=== PATIENT | male | born 1980 | race Caucasian/White ===

== ENCOUNTER 2019-10-20 11:55 | Emergency (ER) | payer SELFPAY ==
[~2019-10-20] VITALS: Ht 175.2 cm; Wt 83.5 kg
[2019-10-20 12:05] VITALS: BP 123/80
[2019-10-20] MEDS ORDERED: DICL75TA2 PO (12:14)
--- NOTE | 2019-10-20 12:14 | ED General ---
General Stated Complaint: CP Source of Information: Patient, Old Records, RN Notes Reviewed Exam Limitations: No Limitations History of Present Illness Date Seen by Provider: October 20, 2019 Time Seen by Provider: 11:59 Initial Comments This patient is a 39-year-old male that presents to the emergency department with soreness and pain to the right upper chest. Patient states he works at a local [employer] has been doing a lot of heavy lifting for the past couple weeks and smoke of sore. Patient states it hurts to move mostly on the right side and pushed her against resistance or pull. Denies any cardiac history. Timing/Duration: 4-6 Hours Severity: Mild Associated Systoms: Denies Symptoms; No Chest Pain, No Cough, No Diaphoresis, No Fever/Chills, No Headaches, No Loss of Appetite, No Malaise, No Nausea/Vomiting, No Rash, No Seizure, No Shortness of Air, No Syncope, No Weakness, No Other Allergies and Home Medications Patient Home Medication List Home Medication List Reviewed: Yes Review of Systems Review of Systems Constitutional: No no symptoms reported; see HPI; No chills, No diaphoresis, No dizziness, No fever, No malaise, No weakness, No weight gain, No weight loss, No other EENTM: No see HPI, No no symptoms reported, No ear discharge, No hearing loss, No ear pain, No blurred vision, No double vision, No eye pain, No tearing, No vision loss, No dental problems, No hoarseness, No mouth pain, No mouth swelling, No epistaxis, No nose congestion, No nose pain, No throat pain, No throat swelling, No other Respiratory: No no symptoms reported, No see HPI, No cough, No dyspnea on exertion, No hemoptysis, No orthopnea, No phlegm, No short of breath, No stridor, No wheezing, No other Cardiovascular: No no symptoms reported; see HPI, chest pain; No edema, No Hx of Intervention, No palpitations, No syncope, No vascular heart diseas, No other Gastrointestinal: No RUQ, No LUQ, No RLQ, No LLQ, No no symptoms reported, No see HPI, No abdominal pain, No constipation, No diarrhea, No dysphagia, No hematemesis, No heartburn, No jaundice, No loss of appetite, No melena, No nausea, No vomiting, No other Genitourinary: No no symptoms reported; see HPI; No decreased output, No discharge, No dysuria, No frequency, No hematuria, No hesitancy, No incontinence, No nocturia, No pain, No other Musculoskeletal: No no symptoms reported, No see HPI, No back pain, No gout, No joint pain, No joint swelling, No muscle pain, No muscle stiffness, No muscle cramps, No muscle twitching, No muscle weakness, No neck pain, No other Skin: No no symptoms reported, No see HPI, No change in color, No change in hair/nails, No dryness, No hx of skin cancer, No lesions, No lumps, No pruritus, No rash, No other Past Amkxsxm-Wsyjjj-Uvenzl Hx Patient Social History Recent Foreign Travel: No Contact w/Someone Who Travel: No Physical Exam Vital Signs Capillary Refill : Height, Weight, BMI Height: '" Weight: lbs. oz. kg; BMI Method: General Appearance: No Apparent Distress, WD/WN HEENT: PERRL/EOMI, TMs Normal, Normal ENT Inspection, Pharynx Normal Neck: Full Range of Motion, Normal Inspection, Non Tender, Supple, Carotid Bruit Respiratory: Chest Non Tender, Lungs Clear, Normal Breath Sounds, No Accessory Muscle Use, No Respiratory Distress Cardiovascular: Regular Rate, Rhythm, No Edema, No Gallop, No JVD, No Murmur, Normal Peripheral Pulses, Other (chest is tender on palpation repeat reproduces the pain with movement of the right upper extremity. Pushing or pulling causes increased discomfort. Appears to be all muscular skeletal pain. Mild in nature) Back: Normal Inspection, No CVA Tenderness, No Vertebral Tenderness Skin: Normal Color, Warm/Dry Progress/Results/Core Measures Suspected Sepsis SIRS Temperature: Pulse: Respiratory Rate: Blood Pressure / Mean: Results/Orders Vital Signs/I&O Capillary Refill : Progress Note : Time: 12:11 Progress Note Encourage diclofenac as needed for pain. Alternate heat and ice and rest. Avoid aggravating movements and avoid lifting greater than 10 pounds for the next couple days. Departure Impression Primary Impression: Musculoskeletal pain Disposition: HOME, SELF-CARE Condition: Stable Departure-Patient Inst. Decision time for Depature: 12:12 Referrals: NO,LOCAL PHYSICIAN (PCP) Primary Care Physician SELF,MARANDA CROW Patient Instructions: Muscle Strain (DC) Add. Discharge Instructions: Encourage diclofenac as needed for pain. Alternate heat and ice and rest. Avoid aggravating movements and avoid lifting greater than 10 pounds for the next couple days. Scripts Diclofenac Sodium (Diclofenac Sodium) 75 Mg Tablet. 75 MG PO BID for 10 Days, #20 TAB 0 Refills Prov: HUMAIRA PITTS MD 10/20/19 HUMAIRA PITTS MD October 20, 2019 12:14
--- OUTSIDE RECORDS SUMMARY | 2019-10-20 13:54 | XMS REPORT | Continuity of Care Document ---
Author Organization Unknown Address Unknown Phone Unavailable Allergies There is no data. Medications There is no data. Problems There is no data. Procedures There is no data. Results There is no data. Encounters ACCT No. Visit Date/Time Discharge Status Pt. Type Provider Facility Loc./Unit Complaint [id number] 10/03/2019 16:00:00 10/03/2019 23:59: 59 CLS Outpatient ANJU DAMON LAC [facility] IN [facility]
== END 2019-10-20 12:22 | disposition home or self-care (01) ==
LOC: ER FS 12:00
DX: R07.89 Other chest pain (principal)
CPT/HCPCS: 99283

== ENCOUNTER 2019-11-09 07:04 | Emergency (ER) | payer SELFPAY ==
[~2019-11-09] VITALS: Ht 175.3 cm; Wt 85.7 kg
[~2019-11-09 07:04] MED LIST: DICL75TA2 PO
--- OUTSIDE RECORDS SUMMARY | 2019-11-09 07:09 | XMS REPORT | Continuity of Care Document ---
Author Organization Unknown Address Unknown Phone Unavailable Allergies Active Description Code Type Severity Reaction Onset Reported/Identified Relationship to Patient Clinical Status Yes acetamenophen acetamenophen Unknown N/A 10/20/2019 Yes Penicillins [id number] Drug Aller gy Unknown N/A 10/20/2019 Yes shellfish derived [id number] Drug Allergy Unknown N/A 10/20/2019 Medications There is no data. Problems Date Dx Coded Attending Type Code Diagnosis Diagnosed By 10/21/2019 HUMAIRA PITTS MD Ot R07.89 OTHER CHEST PAIN 10/21/2019 HUMAIRA PITTS MD Ot R07.9 CHEST PAIN, UNSPECIFIED 10/21/2019 HUMAIRA PITTS MD Ot R07.89 OTHER CHEST PAIN 10/21/2019 HUMAIRA PITTS MD Ot R07.9 CHEST PAIN, UNSPECIFIED Procedures There is no data. Results There is no data. Encounters ACCT No. Visit Date/Time Discharge Status Pt. Type Provider Facility Loc./Unit Complaint [id number] 10/03/2019 16:00:00 10/03/2019 23:59: 59 CLS Outpatient ANJU DAMON LAC [facility] IN [facility] [id number] 10/20/2019 12:00:00 020 12:22:00 DIS Outpatient HUMAIRA PITTS MD [facility] ER FS CP
[2019-11-09] MEDS ORDERED: NS IV 1000 ML 1,000 ML IV SCH (07:30)
--- NOTE | 2019-11-09 07:37 | ED General ---
General Stated Complaint: SOB; DIZZINESS; LIGHTHEADED Source of Information: Patient Exam Limitations: No Limitations History of Present Illness Date Seen by Provider: November 09, 2019 Time Seen by Provider: 07:15 Initial Comments The patient is a pleasant 39-year-old male who presents for evaluation of shortness of breath and lightheadedness which happened at work today. 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 He says that he felt like he might pass out. He was seen here about 2 and half weeks ago for chest discomfort but states that he is not having any chest di scomfort right now. He states that he has a history of asthma and rarely uses an inhaler. While he was at work he used someone else's inhaler and states that this helped his shortness of breath significantly. He used to take medication for seizures but has not had to do so in some time. He denies any other medical problems. He states that his father had a CABG but is unsure at what age. He does feel that his symptoms today were caused by an exacerbation of his asthma. He is alert and oriented 4, calm, and appears to be in no distress. He denies cough, fevers or chills, sick contacts, sore throat, headache, neck pain or stiffness, nausea or vomiting, diaphoresis, palpitations or syncope. Timing/Duration: 1 Hour Severity: Moderate Modifying Factors: improves with Medication (albuterol inhaler helped), improves with Rest (helped) Associated Systoms: Shortness of Air Allergies and Home Medications Allergies Coded Allergies: Penicillins (Unverified Adverse Reaction, Unknown, 10/20/19) shellfish derived (Unverified Adverse Reaction, Unknown, 10/20/19) Uncoded Allergies: acetamenophen (Adverse Reaction, Unknown, 10/20/19) Home Medications Diclofenac Sodium 75 Mg Tablet.dr 75 MG PO BID Prescribed by: HUMAIRA PITTS on 10/20/19 1214 Patient Home Medication List Home Medication List Reviewed: Yes Review of Systems Review of Systems Constitutional: other (lightheaded) EENTM: no symptoms reported Respiratory: short of breath Cardiovascular: no symptoms reported Gastrointestinal: no symptoms reported Genitourinary: no symptoms reported Musculoskeletal: no symptoms reported Skin: no symptoms reported Psychiatric/Neurological: No Symptoms Reported Hematologic/Lymphatic: No Symptoms Reported Immunological/Allergic: no symptoms reported All Other Systems Reviewed Negative Unless Noted: Yes Past Ngkhhly-Xzunbf-Vpgjrw Hx Past Med/Social Hx: Reviewed Nursing Past Med/Soc Hx Patient Social History Type Used: Smokeless Tobacco Recent Foreign Travel: No Contact w/Someone Who Travel: No Recent Hopitalizations: No Seasonal Allergies Seasonal Allergies: No Past Medical History Surgeries: Yes Appendectomy Respiratory: No Cardiac: No Neurological: Yes (Epilepsy, cleared 2 yrs ago. Took self off meds) Seizure Disorder Genitourinary: No Gastrointestinal: No Musculoskeletal: No Endocrine: No HEENT: No Cancer: No Psychosocial: No Integumentary: No Blood Disorders: No Physical Exam Vital Signs Vital Signs - First Documented 11/09/19 07:14 Temp 36.3 Pulse 69 Resp 18 B/P (MAP) 129/84 (99) Pulse Ox 96 O2 Delivery Room Air Capillary Refill : Height, Weight, BMI Height: '" Weight: lbs. oz. kg; 27.00 BMI Method: General Appearance: No Apparent Distress, WD/WN Eyes: Bilateral Eye Normal Inspection, Bilateral Eye PERRL, Bilateral Eye EOMI HEENT: PERRL/EOMI, Normal ENT Inspection, Pharynx Normal Neck: Full Range of Motion, Normal Inspection, Supple Respiratory: Lungs Clear, Normal Breath Sounds, No Accessory Muscle Use, No Respiratory Distress Cardiovascular: Regular Rate, Rhythm, No Edema, No JVD, No Murmur, Normal Peripheral Pulses Gastrointestinal: Normal Bowel Sounds, No Pulsatile Mass, Non Tender, Soft Extremity: Normal Capillary Refill, Normal Inspection, Normal Range of Motion Neurologic/Psychiatric: Alert, Oriented x3, No Motor/Sensory Deficits, Normal Mood/Affect Skin: Normal Color, Warm/Dry Progress/Results/Core Measures Suspected Sepsis SIRS Temperature: Pulse: Respiratory Rate: Laboratory Tests 11/09/19 07:35: White Blood Count 6.8 Blood Pressure / Mean: Laboratory Tests 11/09/19 07:35: Creatinine 0.70, Platelet Count 259, Total Bilirubin 0.4 Results/Orders Lab Results Laboratory Tests Test 11/09/19 07:35 Range/Units White Blood Count 6.8 4.3-11.0 10^3/uL Red Blood Count 5.20 4.35-5.85 10^6/uL Hemoglobin 15.3 13.3-17.7 G/DL Hematocrit 44 40-54 % Mean Corpuscular Volume 85 80-99 FL Mean Corpuscular Hemoglobin 29 25-34 PG Mean Corpuscular Hemoglobin Concent 35 32-36 G/DL Red Cell Distribution Width 13.1 10.0-14.5 % Platelet Count 259 130-400 10^3/uL Mean Platelet Volume 9.0 7.4-10.4 FL Neutrophils (%) (Auto) 53 42-75 % Lymphocytes (%) (Auto) 31 12-44 % Monocytes (%) (Auto) 10 0-12 % Eosinophils (%) (Auto) 5 0-10 % Basophils (%) (Auto) 1 0-10 % Neutrophils # (Auto) 3.6 1.8-7.8 X 10^3 Lymphocytes # (Auto) 2.1 1.0-4.0 X 10^3 Monocytes # (Auto) 0.7 0.0-1.0 X 10^3 Eosinophils # (Auto) 0.4 H 0.0-0.3 10^3/uL Basophils # (Auto) 0.1 0.0-0.1 10^3/uL D-Dimer 0.30 0.00-0.49 UG/ML Sodium Level 140 135-145 MMOL/L Potassium Level 4.2 3.6-5.0 MMOL/L Chloride Level 103 98-107 MMOL/L Carbon Dioxide Level 26 21-32 MMOL/L Anion Gap 11 5-14 MMOL/L Blood Urea Nitrogen 20 H 7-18 MG/DL Creatinine 0.70 0.60-1.30 MG/DL Estimat Glomerular Filtration Rate > 60 BUN/Creatinine Ratio 29 Glucose Level 110 H 70-105 MG/DL Calcium Level 8.9 8.5-10.1 MG/DL Corrected Calcium 8.7 8.5-10.1 MG/DL Total Bilirubin 0.4 0.1-1.0 MG/DL Aspartate Amino Transf (AST/SGOT) 22 5-34 U/L Alanine Aminotransferase (ALT/SGPT) 43 0-55 U/L Alkaline Phosphatase 98 40-136 U/L Troponin I < 0.30 <0.30 NG/ML Pro-B-Type Natriuretic Peptide 12.4 <75.0 PG/ML Total Protein 6.7 6.4-8.2 GM/DL Albumin 4.2 3.2-4.5 GM/DL My Orders Orders - EVITA,AALIYAH B DO Cbc With Automated Diff (11/09/19 07:28) Comprehensive Metabolic Panel (11/09/19 07:28) Troponin I Fs (11/09/19 07:28) Probnp Fs (11/09/19 07:28) Fibrin Degradation Products (11/09/19 07:28) Ns Iv 1000 Ml (Sodium Chloride 0.9%) (11/09/19 07:30) Derrick Barge Operator (11/09/19 07:28) Ekg Tracing (11/09/19 07:28) Continuous Ekg Monitoring (11/09/19 07:28) Chest 1 View Ap/Pa Only (11/09/19 07:49) Vital Signs/I&O 11/09/19 07:14 Temp 36.3 Pulse 69 Resp 18 B/P (MAP) 129/84 (99) Pulse Ox 96 O2 Delivery Room Air Capillary Refill : Progress Note : Progress Note @0843 - patient updated on lab and imaging results which are acutely unremarkable. He states it is feeling better and is asking to go home. Workup fails to reveal any emergent pathology. The patient will go home with a prescription for albuterol inhaler which he has run out of. Advised the patient to follow up with his PCP in the next 2-3 days and to return to the emergency Department immediately for new or worsening symptoms. The patient expresses verbal understanding and agreement with the plan and is stable for discharge. ECG Comment @0720 - normal sinus rhythm, rate of 64, normal axis, no acute ischemic findings noted, no STEMI, reviewed and interpreted by myself Departure Impression Primary Impression: Light-headed feeling Additional Impression: Asthma exacerbation Disposition: 01 HOME, SELF-CARE Condition: Stable Departure-Patient Inst. Decision time for Depature: 08:45 Referrals: NO,LOCAL PHYSICIAN (PCP) Primary Care Physician [facility] Patient Instructions: Asthma, Adult (DC), Dizziness, Nonvertigo, (DC) Add. Discharge Instructions: Take the prescribed medicine as directed. Return to the emergency Department immediately for new or worsening symptoms. Follow-up with your doctor in the next 1-2 days. Scripts Albuterol Sulfate (VENTOLIN HFA) 1 Puff Puff 2 PUFF INH Q4H PRN for WHEEZING, #1 PUFF 1 PUFF = 90 MCG Prov: AALIYAH JAMA DO 11/09/19 AALIYAH JAMA DO November 09, 2019 07:37
[2019-11-09 07:45] LABS: HEMATOCRIT 44 % (40-54); HEMOGLOBIN 15.3 G/DL (13.3-17.7); MEAN CORPUSCULAR HEMOGLOBIN 29 PG (25-34); WHITE BLOOD COUNT 6.8 10^3/uL (4.3-11.0)
[2019-11-09 07:46] LABS: BASOPHILS % (AUTO) 1 % (0-10); EOSINOPHILS % (AUTO) 5 % (0-10); MEAN CORPUSCULAR HGB CONC 35 G/DL (32-36); MEAN CORPUSCULAR VOLUME 85 FL (80-99); MONOCYTES % (AUTO) 10 % (0-12); NEUTROPHILS % (AUTO) 53 % (42-75); PLATELET COUNT 259 10^3/uL (130-400); RED CELL DISTRIBUTION WIDTH 13.1 % (10.0-14.5)
[2019-11-09 07:47] LABS: BASOPHILS # (AUTO) 0.1 10^3/uL (0.0-0.1); EOSINOPHILS # (AUTO) 0.4 10^3/uL (0.0-0.3); LYMPHOCYTES # (AUTO) 2.1 X 10^3 (1.0-4.0); LYMPHOCYTES % (AUTO) 31 % (12-44); MONOCYTES # (AUTO) 0.7 X 10^3 (0.0-1.0); NEUTROPHILS # (AUTO) 3.6 X 10^3 (1.8-7.8)
--- NOTE | 2019-11-09 08:07 | Diagnostic Imaging Report ---
INDICATION: Lightheaded, short of breath, chest pain COMPARISON: None available. TECHNIQUE: Single frontal radiograph of the chest dated 11/09/2019. FINDINGS: The cardiac silhouette is within normal limits in size. No significant pulmonary vascular congestion. The lungs are clear. No pleural effusion. No pneumothorax. No acute osseous abnormality. IMPRESSION: No acute cardiopulmonary abnormality. Dictated by: Dictated on workstation # [id number]
[2019-11-09 08:17] LABS: ALANINE AMINOTRANSFERASE 43 U/L (0-55); ALKALINE PHOSPHATASE 98 U/L (40-136); BILIRUBIN,TOTAL 0.4 MG/DL (0.1-1.0); BUN/CREATININE RATIO 29; CALCIUM 8.9 MG/DL (8.5-10.1); CARBON DIOXIDE 26 MMOL/L (21-32); CHLORIDE 103 MMOL/L (98-107); GFR ESTIMATED > 60; GLUCOSE 110 MG/DL (70-105); POTASSIUM 4.2 MMOL/L (3.6-5.0); SODIUM 140 MMOL/L (135-145)
[2019-11-09 08:18] LABS: ALBUMIN 4.2 GM/DL (3.2-4.5); TOTAL PROTEIN 6.7 GM/DL (6.4-8.2)
[2019-11-09] MEDS ORDERED: RT-ALBUINH INH (08:48)
[2019-11-09 09:05] VITALS: BP 113/77
== END 2019-11-09 09:05 | disposition home or self-care (01) ==
LOC: EDUNIT# 07:04 → ER FS 07:05
DX: J45.901 Unspecified asthma with (acute) exacerbation (principal); R42 Dizziness and giddiness; Z88.0 Allergy status to penicillin; Z88.6 Allergy status to analgesic agent
CPT/HCPCS: 36415; 71045; 80053; 83880; 84484; 85025; 85379; 93005; 96360

== ENCOUNTER 2020-05-06 19:23 | Emergency (ER) | payer MEDICAID, OTHER ==
[~2020-05-06 19:23] MED LIST changes: +RT-ALBUINH INH
--- NOTE | 2020-05-06 19:36 | ED Upper Extremity ---
General Stated Complaint: FALL/INJURED RT SHOULDER Source: patient Exam Limitations: no limitations History of Present Illness Date Seen by Provider: May 06, 2020 Time Seen by Provider: 19:25 Initial Comments The patient is a pleasant 40-year-old male who states that he slipped and fell injuring his right shoulder. He is holding the shoulder close to his body and states that it hurts too much to move it away from his body. He denies any previous serious injury to the shoulder. He says that he hit his head slightly but is not having any head or neck pain. He does not take any blood thinners. He denies any weakness or numbness, shortness of breath, back pain, abdominal pain, chest wall pain, or any other complaints. He is alert and oriented 4, calm, and appears to be in no distress. Onset: just prior to arrival Pain/Injury Location: right shoulder Method of Injury: fell Modifying Factors: Improves With Movement (makes it worse) Allergies and Home Medications Allergies Coded Allergies: Penicillins (Unverified Adverse Reaction, Unknown, 10/20/19) shellfish derived (Unverified Adverse Reaction, Unknown, 10/20/19) Uncoded Allergies: acetamenophen (Adverse Reaction, Unknown, 10/20/19) Home Medications Albuterol Sulfate 1 Puff Puff, 2 PUFF INH Q4H PRN for WHEEZING 1 PUFF = 90 MCG Prescribed by: AALIYAH JAMA on 11/09/19 0848 Diclofenac Sodium 75 Mg Tablet.dr, 75 MG PO BID Prescribed by: HUMAIRA PITTS on 10/20/19 1214 Patient Home Medication List Home Medication List Reviewed: Yes Review of Systems Constitutional: no symptoms reported EENTM: no symptoms reported Respiratory: no symptoms reported Cardiovascular: no symptoms reported Gastrointestinal: no symptoms reported Genitourinary: no symptoms reported Musculoskeletal: no symptoms reported Skin: no symptoms reported Psychiatric/Neurological: No Symptoms Reported All Other Systems Reviewed Negative Unless Noted: Yes Past Hbqldjc-Fmxhil-Jipxtd Hx Past Med/Social Hx: Reviewed Nursing Past Med/Soc Hx Patient Social History Type Used: Smokeless Tobacco 2nd Hand Smoke Exposure: No Recent Foreign Travel: No Contact w/Someone Who Travel: No Recent Hopitalizations: No Seasonal Allergies Seasonal Allergies: No Past Medical History Surgeries: Yes Appendectomy Respiratory: Yes Asthma Cardiac: Yes Hypertension Neurological: Yes (Epilepsy, cleared 2 yrs ago. Took self off meds) Seizure Disorder Genitourinary: No Gastrointestinal: No Musculoskeletal: No Endocrine: No HEENT: No Cancer: No Psychosocial: No Integumentary: No Blood Disorders: No Physical Exam Vital Signs Vital Signs - First Documented 05/06/20 19:25 Temp 37.4 Pulse 86 Resp 16 B/P (MAP) 127/84 (98) Pulse Ox 97 O2 Delivery Room Air Capillary Refill : Height, Weight, BMI Height: '" Weight: lbs. oz. kg; 27.00 BMI Method: General Appearance: WD/WN, no apparent distress HEENT: PERRL/EOMI, normal ENT inspection Neck: non-tender, full range of motion, supple, normal inspection Cardiovascular: regular rate, rhythm, no edema, no JVD Respiratory: lungs clear, normal breath sounds, no respiratory distress, no accessory muscle use Back: normal inspection, no CVA tenderness, no vertebral tenderness Shoulder: bone tenderness (over right humeral head and AC joint, no dislocation/deformity noted, ROM testing in abduction limited to only 15 degrees 2/2 pain, distal research methods instructor strength and sensation wnl) Wrist: Yes normal inspection, Yes non-tender, Yes no evidence of injury, Yes normal ROM Hand: non-tender, no evidence of injury, normal ROM Neurologic/Tendon: normal sensation, normal motor functions, normal tendon functions Neurologic/Psychiatric: dance master II-XII nml as tested, no motor/sensory deficits, alert, normal mood/affect, oriented x 3 Skin: normal color, warm/dry Progress/Results/Core Measures Results/Orders My Orders Orders - AALIYAH JAMA DO Shoulder 3 View Right (05/06/20 19:30) Ed Ortho/Other Supplies Order (05/06/20 19:47) Vital Signs/I&O 05/06/20 19:25 Temp 37.4 Pulse 86 Resp 16 B/P (MAP) 127/84 (98) Pulse Ox 97 O2 Delivery Room Air Progress Progress Note : Progress Note @1950 - Xray unremarkable. Sling applied. Advised pt to wear the sling for the next 1-2 weeks for comfort and to f/u with his PCP in the next 2-3 days. Pt advised to return to the ER for new or worsening symptoms. Departure Impression Primary Impression: Right shoulder injury Disposition: 01 HOME, SELF-CARE Condition: Stable Departure-Patient Inst. Decision time for Depature: 19:52 Referrals: NO,LOCAL PHYSICIAN (PCP/Family) Primary Care Physician Patient Instructions: Shoulder Sprain (DC), Rotator Cuff Injury (DC) Add. Discharge Instructions: Follow up with your doctor in the next 2-3 days. Wear the sling for comfort. Return to the ER for new or worsening symptoms. AALIYAH JAMA DO May 06, 2020 19:36
--- NOTE | 2020-05-06 19:48 | Diagnostic Imaging Report ---
INDICATION: Right shoulder injury after fall. EXAMINATION: Right shoulder from 05/06/2020. FINDINGS: Three views of the right shoulder. There is no evidence for an acute fracture or dislocation. The joint spaces are well maintained. There is no significant soft tissue swelling. IMPRESSION: 1. No acute process. 2. Not mentioned above, density in the right midlung is likely a calcified granuloma and stable from 11/09/2019. Continued follow-up recommended. Dictated by: Dictated on workstation # [id number]
[2020-05-06 19:57] VITALS: BP 127/84
== END 2020-05-06 19:57 | disposition home or self-care (01) ==
LOC: EDUNIT# 19:23 → ER FS 19:26
DX: S49.91XA Unspecified injury of right shoulder and upper arm, initial encounter (principal); J45.909 Unspecified asthma, uncomplicated; Z88.0 Allergy status to penicillin; W01.0XXA Fall on same level from slipping, tripping and stumbling without subsequent striking against object, initial encounter
CPT/HCPCS: 73030; 99283; A4565

== ENCOUNTER → 2020-05-23 | Outpatient (CLI) | payer MEDICAID ==
--- NOTE | 2020-05-23 16:28 | Diagnostic Imaging Report ---
EXAMINATION: Magnetic resonance imaging of the right shoulder without contrast. DATE: May 23, 2020. COMPARISON: Right shoulder radiographs May 06, 2020. HISTORY: 40-year-old male, right shoulder pain after injury. TECHNIQUE: Magnetic Resonance Imaging sequences were performed of the shoulder without contrast. FINDINGS: ROTATOR CUFF, LIGAMENTS, TENDONS, AND MUSCLES: The supraspinatus, infraspinatus, teres minor, and subscapularis tendons and muscles are intact. There is normal rotator cuff muscle bulk and signal. LONG HEAD OF BICEPS: The biceps labral attachment and long head of the biceps tendon is intact. The long head of the biceps tendon is normally positioned within the bicipital groove. GLENOHUMERAL JOINT: The humeral head is well positioned relative to the glenoid. The labrum is grossly intact. There is no identified paralabral cyst. The articular cartilage is grossly intact. There is no joint effusion. ACROMIOCLAVICULAR JOINT: The acromioclavicular joint is normally aligned. The coracoclavicular and coracoacromial ligaments are intact. There are no degenerative changes of the acromioclavicular joint. BONE: The bones all have normal configuration. There is a subcentimeter benign bone island in the glenoid. There is no acute fracture, bone contusion, or evidence of osteonecrosis. BURSAE AND SOFT TISSUES: The bursae and soft tissue surrounding the shoulder are unremarkable. IMPRESSION: 1. Grossly unremarkable MRI of the right shoulder. Dictated by: Dictated on workstation # [id number]
== END ==
LOC: RAD 14:45
PROVIDERS: ATTEND Nurse Practitioner Family
DX: S49.91XD Unspecified injury of right shoulder and upper arm, subsequent encounter (principal); X58.XXXD Exposure to other specified factors, subsequent encounter
CPT/HCPCS: 73221

== ENCOUNTER 2020-08-14 20:10 | Emergency (ER) | payer MEDICAID ==
[~2020-08-14] VITALS: Ht 175.2 cm; Wt 83.5 kg
[2020-08-14 20:59] LABS: HEMATOCRIT 43 % (40-54); HEMOGLOBIN 14.9 G/DL (13.3-17.7); MEAN CORPUSCULAR HEMOGLOBIN 30 PG (25-34); MEAN CORPUSCULAR HGB CONC 35 G/DL (32-36); MEAN CORPUSCULAR VOLUME 84 FL (80-99); MEAN PLATELET VOLUME 9.2 FL (7.4-10.4); PLATELET COUNT 308 10^3/uL (130-400); WHITE BLOOD COUNT 8.1 10^3/uL (4.3-11.0)
[2020-08-14 21:00] LABS: BASOPHILS # (AUTO) 0.1 10^3/uL (0.0-0.1); BASOPHILS % (AUTO) 1 % (0-10); EOSINOPHILS # (AUTO) 0.2 10^3/uL (0.0-0.3); EOSINOPHILS % (AUTO) 2 % (0-10); LYMPHOCYTES # (AUTO) 2.8 X 10^3 (1.0-4.0); LYMPHOCYTES % (AUTO) 35 % (12-44); MONOCYTES # (AUTO) 0.7 X 10^3 (0.0-1.0); MONOCYTES % (AUTO) 8 % (0-12); NEUTROPHILS # (AUTO) 4.3 X 10^3 (1.8-7.8); NEUTROPHILS % (AUTO) 54 % (42-75)
[2020-08-14 21:19] LABS: ALANINE AMINOTRANSFERASE 23 U/L (0-55); ALBUMIN 4.1 GM/DL (3.2-4.5); ALKALINE PHOSPHATASE 96 U/L (40-136); BILIRUBIN,TOTAL 0.2 MG/DL (0.1-1.0); BUN/CREATININE RATIO 22; CALCIUM 8.8 MG/DL (8.5-10.1); CARBON DIOXIDE 23 MMOL/L (21-32); CHLORIDE 108 MMOL/L (98-107); CREATININE SERUM 0.81 MG/DL (0.60-1.30); GFR ESTIMATED > 60; GLUCOSE 158 MG/DL (70-105); SODIUM 141 MMOL/L (135-145); TOTAL PROTEIN 6.9 GM/DL (6.4-8.2)
[2020-08-14] MEDS ORDERED: ANTACID SUSP 30 ML UDC (MYLANTA) PO ONE (21:45)
--- NOTE | 2020-08-14 22:25 | Diagnostic Imaging Report ---
HISTORY: Abdominal pain COMPARISON: None TECHNIQUE: Frontal view of the chest. Upright and supine frontal views of the abdomen. FINDINGS: Lung volumes are normal. No consolidation is seen. There is no pleural effusion or pneumothorax. The cardiac silhouette is normal in size. The bowel loops are nondistended without obstruction. The stool burden is low. There is no large collection of free air. IMPRESSION: No acute abnormality is seen in the chest or abdomen. Dictated by: Dictated on workstation # [id number]
[2020-08-14] MEDS ORDERED: morphine INJ 10 MG/ML 1ML (SYR OR VIAL) IVP STA (22:40)
[2020-08-14] MEDS ORDERED: ONDANSETRON 4 MG/2 ML (SDV) Z0FRAN IVP ONE (22:45)
--- NOTE | 2020-08-14 22:50 | ED General ---
General Chief Complaint: Abdominal/GI Problems Stated Complaint: SIDE ABD PAIN Nursing Triage Note: Patient is complaining of ULQ pain that began this AM. Patient states that it wraps around to his left side and has gotten progressively worse throughout the day. Patients last BM was this morning and he reports that it was normal. Nursing Sepsis Screen: No Definite Risk Source of Information: Patient History of Present Illness Date Seen by Provider: Aug 14, 2020 Time Seen by Provider: 20:50 Initial Comments Patient is a 40-year-old male with history of GERD who presents with intermittent left upper quadrant pain/tenderness for the past several days. Pain is described as sharp worse with palpation. Patient reports nausea without vomiting. No hematemesis or coffee-ground emesis. No melena or hematochezia. No flank pain. No fever chills or sweats. No other acute symptoms or complaints. No medications taken prior to ED arrival with exception of omeprazole which is prescribed. Denies heavy NSAID or daily alcohol use. Timing/Duration: 1 Week Severity: Moderate Modifying Factors: improves with Other Associated Systoms: Other Allergies and Home Medications Allergies Coded Allergies: Penicillins (Unverified Adverse Reaction, Unknown, 10/20/19) shellfish derived (Unverified Adverse Reaction, Unknown, 10/20/19) Uncoded Allergies: acetamenophen (Adverse Reaction, Unknown, 10/20/19) Home Medications Albuterol Sulfate 1 Puff Puff, 2 PUFF INH Q4H PRN for WHEEZING 1 PUFF = 90 MCG Prescribed by: AALIYAH JAMA on 11/09/19 0848 Diclofenac Sodium 75 Mg Tablet.dr, 75 MG PO BID Prescribed by: HUMAIRA PITTS on 10/20/19 1214 Patient Home Medication List Home Medication List Reviewed: Yes Review of Systems Review of Systems Constitutional: see HPI EENTM: see HPI Respiratory: see HPI Cardiovascular: see HPI Gastrointestinal: see HPI Genitourinary: see HPI Musculoskeletal: see HPI Skin: see HPI Psychiatric/Neurological: See HPI Hematologic/Lymphatic: See HPI Immunological/Allergic: see HPI All Other Systems Reviewed Negative Unless Noted: Yes Past Araixti-Axcmho-Kswqjd Hx Past Med/Social Hx: Reviewed Nursing Past Med/Soc Hx Patient Social History Alcohol Use: Denies Use Type Used: Smokeless Tobacco 2nd Hand Smoke Exposure: No Recent Infectious Disease Expo: No Recent Hopitalizations: No Seasonal Allergies Seasonal Allergies: No Past Medical History Surgeries: Yes Appendectomy Respiratory: Yes Asthma Cardiac: Yes Hypertension Neurological: Yes (Epilepsy, cleared 2 yrs ago. Took self off meds) Seizure Disorder Genitourinary: No Gastrointestinal: Yes Gastroesophageal Reflux Musculoskeletal: No Endocrine: No HEENT: No Cancer: No Psychosocial: No Integumentary: No Blood Disorders: No Physical Exam Vital Signs Vital Signs - First Documented 08/14/20 20:25 Temp 36.6 Pulse 90 Resp 18 B/P (MAP) 133/80 (97) Pulse Ox 98 O2 Delivery Room Air Capillary Refill : Less Than 3 Seconds Height, Weight, BMI Height: '" Weight: lbs. oz. kg; 27.00 BMI Method: General Appearance: Moderate Distress Eyes: Bilateral Eye Normal Inspection, Bilateral Eye PERRL, Bilateral Eye EOMI HEENT: PERRL/EOMI, Normal ENT Inspection, Pharynx Normal Neck: Full Range of Motion, Non Tender, Supple Respiratory: Chest Non Tender, Lungs Clear Cardiovascular: Regular Rate, Rhythm Gastrointestinal: Non Tender, Soft Back: Normal Inspection, No CVA Tenderness Neurologic/Psychiatric: Alert, Oriented x3 Skin: Normal Color Progress/Results/Core Measures Suspected Sepsis Recent Fever Within 48 Hours: No Infection Criteria Present: None New/Unexplained Altered Menta: No Sepsis Screen: No Definite Risk SIRS Temperature: Pulse: 90 Respiratory Rate: 18 Laboratory Tests 08/14/20 20:50: White Blood Count 8.1 Blood Pressure 133 /80 Mean: 97 Laboratory Tests 08/14/20 20:50: Creatinine 0.81, Platelet Count 308, Total Bilirubin 0.2 Results/Orders Lab Results Laboratory Tests Test 08/14/20 20:50 Range/Units White Blood Count 8.1 4.3-11.0 10^3/uL Red Blood Count 5.05 4.35-5.85 10^6/uL Hemoglobin 14.9 13.3-17.7 G/DL Hematocrit 43 40-54 % Mean Corpuscular Volume 84 80-99 FL Mean Corpuscular Hemoglobin 30 25-34 PG Mean Corpuscular Hemoglobin Concent 35 32-36 G/DL Red Cell Distribution Width 12.7 10.0-14.5 % Platelet Count 308 130-400 10^3/uL Mean Platelet Volume 9.2 7.4-10.4 FL Immature Granulocyte % (Auto) 0 % Neutrophils (%) (Auto) 54 42-75 % Lymphocytes (%) (Auto) 35 12-44 % Monocytes (%) (Auto) 8 0-12 % Eosinophils (%) (Auto) 2 0-10 % Basophils (%) (Auto) 1 0-10 % Neutrophils # (Auto) 4.3 1.8-7.8 X 10^3 Lymphocytes # (Auto) 2.8 1.0-4.0 X 10^3 Monocytes # (Auto) 0.7 0.0-1.0 X 10^3 Eosinophils # (Auto) 0.2 0.0-0.3 10^3/uL Basophils # (Auto) 0.1 0.0-0.1 10^3/uL Immature Granulocyte # (Auto) 0.0 0.0-0.1 10^3/uL Sodium Level 141 135-145 MMOL/L Potassium Level 4.0 3.6-5.0 MMOL/L Chloride Level 108 H 98-107 MMOL/L Carbon Dioxide Level 23 21-32 MMOL/L Anion Gap 10 5-14 MMOL/L Blood Urea Nitrogen 18 7-18 MG/DL Creatinine 0.81 0.60-1.30 MG/DL Estimat Glomerular Filtration Rate > 60 BUN/Creatinine Ratio 22 Glucose Level 158 H 70-105 MG/DL Calcium Level 8.8 8.5-10.1 MG/DL Corrected Calcium 8.7 8.5-10.1 MG/DL Total Bilirubin 0.2 0.1-1.0 MG/DL Aspartate Amino Transf (AST/SGOT) 19 5-34 U/L Alanine Aminotransferase (ALT/SGPT) 23 0-55 U/L Alkaline Phosphatase 96 40-136 U/L C-Reactive Protein 0.08 <0.50 MG/DL Total Protein 6.9 6.4-8.2 GM/DL Albumin 4.1 3.2-4.5 GM/DL My Glenna Manzanares - CHAVEZ HANNON DO Cbc With Automated Diff (08/14/20 20:40) Comprehensive Metabolic Panel (08/14/20 20:40) Acute Abd Series (08/14/20 20:40) Crp Fs (08/14/20 20:50) Antacid Suspension (Mylanta Suspension (08/14/20 21:45) Morphine Injection (Morphine Injection (08/14/20 22:40) Ondansetron Injection (Zofran Injectio (08/14/20 22:45) Diphenhydramine Injection (Benadryl Inje (08/14/20 22:55) Iohexol Injection (Omnipaque 350 Mg/Ml 1 (08/15/20 00:00) Received Contrast (Hold Metformin- Contr (08/15/20 00:00) Sodium Chloride Flush (Catheter Flush Sy (08/15/20 00:00) Ns (Ivpb) (Sodium Chloride 0.9% Ivpb Bag (08/15/20 00:00) Ct Abdomen/Pelvis Wo (08/15/20 00:07) Medications Given in ED Current Medications Medications Dose Ordered Sig/Yaima Route Start Time Stop Time Status Last Admin Dose Admin Al Hydrox/Mg Hydrox/Simethicone 30 ml ONCE ONCE PO 08/14/20 21:45 08/14/20 21:46 DC 08/14/20 21:58 30 ML Iohexol 100 ml ONCE ONCE IV 08/15/20 00:00 08/15/20 00:01 DC 08/14/20 23:59 100 ML Ondansetron HCl 4 mg ONCE ONCE IVP 08/14/20 22:45 08/14/20 22:46 DC 08/14/20 22:56 4 MG Sodium Chloride 10 ml NEEDED PRN IV 08/15/20 00:00 08/15/20 00:00 10 ML Sodium Chloride 100 ml ONCE ONCE IV 08/15/20 00:00 08/15/20 00:01 DC 08/14/20 23:59 100 ML Vital Signs/I&O 08/14/20 20:25 Temp 36.6 Pulse 90 Resp 18 B/P (MAP) 133/80 (97) Pulse Ox 98 O2 Delivery Room Air Capillary Refill : Less Than 3 Seconds Blood Pressure Mean: 97 Departure Communication (Admissions) CT abdomen and pelvis without contrast. Ineterminate distal esophageal wall thickening recommend gastroenterology consultation and consideration of en doscopy. Left upper quadrant pain with outpatient upper endoscopy 1 month ago. Patient currently on omeprazole 40 mg daily. Will increase to 40 twice daily, and add sucralfate and Pepcid. Patient instructed to follow-up with GI provider. Return precautions reviewed. Patient verbalizes understanding agreement discharge instructions prior to departure. Impression Primary Impression: Left upper quadrant abdominal pain Additional Impression: Esophagitis Disposition: HOME, SELF-CARE Condition: Stable Departure-Patient Inst. Decision time for Depature: 00:47 Referrals: XOCHITL LICONA APRN (PCP) Primary Care Physician Add. Discharge Instructions: Please increase omeprazole to 40 mg twice daily and take newly prescribed medications as directed. Follow-up with your PCP and GI specialist for further management recommendations. Return to the ED if new or worsening symptoms. All discharge instructions reviewed with patient and/or family. Voiced understanding. Scripts Omeprazole (Omeprazole) 40 Mg Capsule. 40 MG PO Q12H, #60 CAP Prov: CHAVEZ HANNON DO 08/15/20 Sucralfate (Sucralfate) 1 Gm Tablet 1 GM PO ACHS, #56 TAB 1 Refill Chew tablet to a slurry and then swallow Prov: CHAVEZ HANNON DO 08/15/20 Famotidine (Pepcid) 20 Mg Tablet 20 MG PO BID, #60 TAB Prov: CHAVEZ HANNON DO 08/15/20 CHAVEZ HANNON DO Aug 14, 2020 22:50
[2020-08-14] MEDS ORDERED: diphenhydrAMINE 50 MG/ML INJ (BENADRYL) ONE (22:55)
[2020-08-15] MEDS ORDERED: IOHEXOL 350 MG/ML 100 ML (OMNIPAQUE 350) VIAL IV ONE
[2020-08-15] MEDS ORDERED: NS 100 ML (IVPB) BAG IV ONE
[2020-08-15] MEDS ORDERED: HOLD METFORMIN - RECEIVED CONTRAST 20 ML VIAL IV SCH
[2020-08-15] MEDS ORDERED: CATHETER FLUSH 10 ML SYR IV PRN
[2020-08-15] MEDS ORDERED: FAMO-119 PO (00:48)
[2020-08-15] MEDS ORDERED: SUCR1TAB PO (00:48)
[2020-08-15] MEDS ORDERED: OMEP40CA27 PO (00:48)
[2020-08-15 01:19] VITALS: BP 119/78
--- NOTE | 2020-08-15 06:58 | Diagnostic Imaging Report ---
PROCEDURE: CT abdomen and pelvis without contrast. TECHNIQUE: Multiple contiguous axial images were obtained through the abdomen and pelvis without the use of intravenous contrast. Auto Exposure Controls were utilized during the CT exam to meet ALARA standards for radiation dose reduction. INDICATION: Left upper quadrant pain. COMPARISON: None. FINDINGS: The heart is unremarkable. Dependent atelectasis is seen in the lung bases. A small hiatal hernia is present. The liver, spleen, pancreas, adrenal glands, and kidneys have a normal appearance. There is no pathologically enlarged mesenteric or retroperitoneal adenopathy. The bowel loops are nondilated. The appendix is nonvisualized. There is no free fluid or free air. No acute osseous abnormalities. The urinary bladder is nondistended. No bladder calculi are present. There is no free air, loculated collection, or adenopathy in the pelvis. IMPRESSION: 1. No evidence of bowel obstruction. No free fluid or free air. The appendix is not visualized, however no secondary signs of acute appendicitis are seen. 2. Small hiatal hernia. Agree with overnight report. Dictated by: Dictated on workstation # [id number]
== END 2020-08-15 01:19 | disposition home or self-care (01) ==
LOC: EDUNIT# 20:10 → ER FS 20:11
DX: R10.12 Left upper quadrant pain (principal); K20.90 Esophagitis, unspecified without bleeding; J45.909 Unspecified asthma, uncomplicated; Z88.0 Allergy status to penicillin; Z88.6 Allergy status to analgesic agent
CPT/HCPCS: 36415; 74022; 74176; 80053; 85025; 86141

== ENCOUNTER 2020-10-31 08:07 | Emergency (ER) | payer MEDICAID ==
[~2020-10-31] VITALS: Ht 175.2 cm; Wt 83.5 kg
[~2020-10-31 08:07] MED LIST changes: +FAMO-119 PO; +OMEP40CA27 PO; +SUCR1TAB PO
--- NOTE | 2020-10-31 08:13 | ED Chest Pain ---
General Stated Complaint: CHEST PAIN History of Present Illness Date Seen by Provider: October 31, 2020 Time Seen by Provider: 08:12 Initial Comments 40-year-old male presents with onset of chest pain 20 minutes prior to arrival while at work. Was not doing anything stressful or highly physically demanding. States chest pain feels like a pressure in the center of his chest and is constant. No exacerbating or remitting factors are appreciated. Denies history of heart disease or previous episodes of chest pain. Patient is on medication for acid reflux, is not a smoker. Denies any recent illness, fever or chills. Does admit he has history of asthma and has had some slight chest congestion over the past 2 days without significant cough or any shortness of air. Allergies and Home Medications Allergies Coded Allergies: Penicillins (Unverified Adverse Reaction, Unknown, 10/20/19) shellfish derived (Unverified Adverse Reaction, Unknown, 10/20/19) Uncoded Allergies: acetamenophen (Adverse Reaction, Unknown, 10/20/19) Home Medications Albuterol Sulfate 1 Puff Puff, 2 PUFF INH Q4H PRN for WHEEZING 1 PUFF = 90 MCG Prescribed by: AALIYAH JAMA on 11/09/19 0848 Diclofenac Sodium 75 Mg Tablet.dr, 75 MG PO BID Prescribed by: HUMAIRA PITTS on 10/20/19 1214 Famotidine 20 Mg Tablet, 20 MG PO BID Prescribed by: CHAVEZ HANNON on 08/15/2047 Nitroglycerin 0.4 Mg Tab.subl, 0.4 MG SL UD PRN for CHEST PAIN Prescribed by: MARIA GUADALUPE FLORES on 10/31/20 1106 Omeprazole 40 Mg Capsule.dr, 40 MG PO Q12H Prescribed by: CHAVEZ HANNON on 08/15/2047 Sucralfate 1 Gm Tablet, 1 GM PO ACHS Chew tablet to a slurry and then swallow Prescribed by: CHAVEZ HANNON on 08/15/2047 Patient Home Medication List Home Medication List Reviewed: Yes Review of Systems Review of Systems Constitutional: No fever, No malaise, No weakness Respiratory: Denies Cough, Denies Shortness of Air, Denies Stridor, Denies Wheezing Cardiovascular: See HPI, Chest Pain; Denies Edema, Denies Irregular Heart Rate, Denies Lightheadedness, Denies Palpitations, Denies Syncope Gastrointestinal: Denies Abdominal Pain, Denies Diarrhea, Denies Nausea, Denies Vomiting Musculoskeletal: No back pain, No joint pain Skin: No change in color, No lesions, No rash Psychiatric/Neurological: Denies Anxiety, Denies Depressed, Denies Headache, Denies Numbness, Denies Paresthesia Past Lihhtlc-Ejoibu-Hkbvpw Hx Past Med/Social Hx: Reviewed Nursing Past Med/Soc Hx Patient Social History Type Used: Smokeless Tobacco 2nd Hand Smoke Exposure: No Recent Hopitalizations: No Seasonal Allergies Seasonal Allergies: No Past Medical History Surgeries: Yes Appendectomy Respiratory: Yes Asthma Cardiac: Yes Hypertension Neurological: Yes (Epilepsy, cleared 2 yrs ago. Took self off meds) Seizure Disorder Genitourinary: No Gastrointestinal: Yes Gastroesophageal Reflux Musculoskeletal: No Endocrine: No HEENT: No Cancer: No Psychosocial: No Integumentary: No Blood Disorders: No Physical Exam Vital Signs Vital Signs - First Documented 10/31/20 08:10 Temp 36.7 Pulse 81 Resp 21 B/P (MAP) 118/79 (92) Pulse Ox 96 O2 Delivery Room Air Capillary Refill : Height, Weight, BMI Height: '" Weight: lbs. oz. kg; 27.00 BMI Method: General Appearance: No Apparent Distress, WD/WN HEENT: PERRL/EOMI, TMs Normal, Normal ENT Inspection, Pharynx Normal Neck: Full Range of Motion, Normal Inspection, Non Tender Respiratory: Chest Non Tender, Lungs Clear, Normal Breath Sounds, No Accessory Muscle Use, No Respiratory Distress Cardiovascular: Regular Rate, Rhythm, No Edema, No JVD Gastrointestinal: No Organomegaly, Non Tender, Soft; No Distended, No Guarding Extremity: Normal Capillary Refill, Non Tender, No Calf Tenderness Neurologic/Psychiatric: Alert, Oriented x3 Skin: Normal Color, Warm/Dry Progress/Results/Core Measures Results/Orders Lab Results Laboratory Tests Test 10/31/20 08:20 10/31/20 10:25 Range/Units White Blood Count 7.5 4.3-11.0 10^3/uL Red Blood Count 4.88 4.35-5.85 10^6/uL Hemoglobin 14.4 13.3-17.7 G/DL Hematocrit 42 40-54 % Mean Corpuscular Volume 86 80-99 FL Mean Corpuscular Hemoglobin 30 25-34 PG Mean Corpuscular Hemoglobin Concent 34 32-36 G/DL Red Cell Distribution Width 13.1 10.0-14.5 % Platelet Count 311 130-400 10^3/uL Mean Platelet Volume 9.2 7.4-10.4 FL Immature Granulocyte % (Auto) 0 % Neutrophils (%) (Auto) 54 42-75 % Lymphocytes (%) (Auto) 31 12-44 % Monocytes (%) (Auto) 10 0-12 % Eosinophils (%) (Auto) 4 0-10 % Basophils (%) (Auto) 1 0-10 % Neutrophils # (Auto) 4.0 1.8-7.8 X 10^3 Lymphocytes # (Auto) 2.3 1.0-4.0 X 10^3 Monocytes # (Auto) 0.8 0.0-1.0 X 10^3 Eosinophils # (Auto) 0.3 0.0-0.3 10^3/uL Basophils # (Auto) 0.1 0.0-0.1 10^3/uL Immature Granulocyte # (Auto) 0.0 0.0-0.1 10^3/uL Sodium Level 138 135-145 MMOL/L Potassium Level 3.8 3.6-5.0 MMOL/L Chloride Level 103 98-107 MMOL/L Carbon Dioxide Level 23 21-32 MMOL/L Anion Gap 12 5-14 MMOL/L Blood Urea Nitrogen 14 7-18 MG/DL Creatinine 0.66 0.60-1.30 MG/DL Estimat Glomerular Filtration Rate > 60 BUN/Creatinine Ratio 21 Glucose Level 150 H 70-105 MG/DL Calcium Level 8.4 L 8.5-10.1 MG/DL Corrected Calcium 8.5 8.5-10.1 MG/DL Total Bilirubin 0.4 0.1-1.0 MG/DL Aspartate Amino Transf (AST/SGOT) 24 5-34 U/L Alanine Aminotransferase (ALT/SGPT) 36 0-55 U/L Alkaline Phosphatase 102 40-136 U/L Troponin I < 0.30 < 0.30 <0.30 NG/ML Total Protein 6.5 6.4-8.2 GM/DL Albumin 3.9 3.2-4.5 GM/DL My Orders Orders - ROVENSTMARIA GUADALUPE STOTU DO Ed Iv/Invasive Line Start (10/31/20 08:12) Troponin I Fs (10/31/20 08:12) Chest 1 View Ap/Pa Only (10/31/20 08:12) Ekg Tracing (10/31/20 08:12) Cbc With Automated Diff (10/31/20 08:12) Comprehensive Metabolic Panel (10/31/20 08:12) Nitroglycerin 0.4 Mg Btl 25's (Nitrostat (10/31/20 08:45) Ns Iv 1000 Ml (Sodium Chloride 0.9%) (10/31/20 08:45) Nitroglycerin 0.4 Mg Btl 25's (Nitrostat (10/31/20 08:38) Ns Iv 1000 Ml (Sodium Chloride 0.9%) (10/31/20 08:38) Troponin I Fs (10/31/20 10:30) Ekg Tracing (10/31/20 10:15) Medications Given in ED Current Medications Medications Dose Ordered Sig/Yaima Route Start Time Stop Time Status Last Admin Dose Admin Nitroglycerin 0.4 mg NEEDED PRN SL 10/31/20 08:45 10/31/20 08:48 0.4 MG Vital Signs/I&O 10/31/20 10/31/20 08:10 08:10 Temp 36.7 Pulse 81 Resp 21 B/P (MAP) 118/79 (92) Pulse Ox 96 O2 Delivery Room Air Room Air Progress Progress Note : Time: 09:10 Progress Note Pain resolved after 1 NTG- sl. Resting in room, explained need for repeat blood work (troponin). No further CP in ER with repeat EKG and Troponin both unchanged/ normal. HEART score= 1 ANASTASIA score= 0 low risk, advised f/u w Cardio to consider stress testing. No previous occurrence of anginal type pain Initial ECG Impression Date: October 31, 2020 Initial ECG Impression Time: 08:10 Initial ECG Rate: 80 Initial ECG Rhythm: Normal Sinus Initial ECG Intervals: Normal Initial ECG Impression: Normal Initial ECG Comparisson: No Previous ECG Available EKG : EKG Time: 10:25 Rate: 74 Rhythm: Normal Sinus Intervals: Normal ECG Comparisson: Unchanged ECG Impression: Normal Diagnostic Imaging Diagonstic Imaging: Xray Plain Films/CT/US/NM/MRI: chest Comments Date of Exam:10/31/20 CHEST 1 VIEW AP/PA ONLY INDICATION: Chest pain. Comparison with 08/14/2020. FINDINGS: Portable chest. The lungs are well-aerated and clear. No infiltrates have developed. Heart is not enlarged. No pneumothorax or pleural effusion. No bony abnormalities. IMPRESSION: Stable portable chest. No significant change since previous exam. Dictated on workstation # [id number] Dict: 10/31/20 0844 Trans: 10/31/20 0850 FARIBA [id number] Interpreted by: MARILIN MASSEY MD Electronically signed by: Departure Impression Primary Impression: Chest pain Qualified Codes: R07.9 - Chest pain, unspecified Disposition: HOME, SELF-CARE Condition: Stable Departure-Patient Inst. Decision time for Depature: 11:15 Referrals: NOELLE EASON MD FACP [facility] XOCHITL LICONA APRN (PCP) Primary Care Physician Patient Instructions: Chest Pain, Adult ED Add. Discharge Instructions: You are advised to take an 81mg (baby) aspirin daily until instructed otherwise not to take it. Call you schedule a follow up appointment with Dr Eason (Marketing Associate) to be seen for your episode of chest pain today. You will likely need to have a stress test this week. Return to the nearest ER for any return of chest pain not relieved by nitroglycerin You may take up to 3 nitroglycerin for onset of chest pain.....if unrelieved after 3, you should call 911 or go to the nearest ER. Scripts Nitroglycerin (Nitroglycerin) 0.4 Mg Tab.subl 0.4 MG SL UD PRN for CHEST PAIN, #20 TAB Prov: MARIA GUADALUPE FLORES DO 10/31/20 MARIA GUADALUPE FLORES DO October 31, 2020 08:13
[2020-10-31] MEDS ORDERED: NITROGLYCERIN 0.4 MG SL TABS BTL 25'S SL ONE (08:38)
[2020-10-31] MEDS ORDERED: NS IV 1000 ML 1,000 ML ONE (08:38)
[2020-10-31 08:41] LABS: HEMATOCRIT 42 % (40-54); HEMOGLOBIN 14.4 G/DL (13.3-17.7); MEAN CORPUSCULAR HEMOGLOBIN 30 PG (25-34); MEAN CORPUSCULAR HGB CONC 34 G/DL (32-36); MEAN CORPUSCULAR VOLUME 86 FL (80-99); MEAN PLATELET VOLUME 9.2 FL (7.4-10.4); PLATELET COUNT 311 10^3/uL (130-400); WHITE BLOOD COUNT 7.5 10^3/uL (4.3-11.0)
[2020-10-31 08:44] LABS: BASOPHILS # (AUTO) 0.1 10^3/uL (0.0-0.1); BASOPHILS % (AUTO) 1 % (0-10); EOSINOPHILS # (AUTO) 0.3 10^3/uL (0.0-0.3); EOSINOPHILS % (AUTO) 4 % (0-10); LYMPHOCYTES # (AUTO) 2.3 X 10^3 (1.0-4.0); LYMPHOCYTES % (AUTO) 31 % (12-44); MONOCYTES # (AUTO) 0.8 X 10^3 (0.0-1.0); MONOCYTES % (AUTO) 10 % (0-12); NEUTROPHILS % (AUTO) 54 % (42-75)
[2020-10-31] MEDS ORDERED: NS IV 1000 ML 1,000 ML IV SCH (08:45)
[2020-10-31] MEDS ORDERED: NITROGLYCERIN 0.4 MG SL TABS BTL 25'S SL PRN (08:45)
--- NOTE | 2020-10-31 08:50 | Diagnostic Imaging Report ---
INDICATION: Chest pain. Comparison with 08/14/2020. FINDINGS: Portable chest. The lungs are well-aerated and clear. No infiltrates have developed. Heart is not enlarged. No pneumothorax or pleural effusion. No bony abnormalities. IMPRESSION: Stable portable chest. No significant change since previous exam. Dictated by: Dictated on workstation # [id number]
[2020-10-31 09:02] LABS: ALANINE AMINOTRANSFERASE 36 U/L (0-55); ALBUMIN 3.9 GM/DL (3.2-4.5); ALKALINE PHOSPHATASE 102 U/L (40-136); BILIRUBIN,TOTAL 0.4 MG/DL (0.1-1.0); BUN/CREATININE RATIO 21; CALCIUM 8.4 MG/DL (8.5-10.1); CARBON DIOXIDE 23 MMOL/L (21-32); CHLORIDE 103 MMOL/L (98-107); CREATININE SERUM 0.66 MG/DL (0.60-1.30); GFR ESTIMATED > 60; GLUCOSE 150 MG/DL (70-105); POTASSIUM 3.8 MMOL/L (3.6-5.0); SODIUM 138 MMOL/L (135-145); TOTAL PROTEIN 6.5 GM/DL (6.4-8.2)
[2020-10-31] MEDS ORDERED: NITR0.4T39 SL (11:06)
[2020-10-31 11:42] VITALS: BP 121/82
== END 2020-10-31 11:30 | disposition home or self-care (01) ==
LOC: EDUNIT# 08:07 → ER FS 08:09
DX: R07.9 Chest pain, unspecified (principal); I10 Essential (primary) hypertension; J45.909 Unspecified asthma, uncomplicated; K21.9 Gastro-esophageal reflux disease without esophagitis; Z88.0 Allergy status to penicillin; Z88.6 Allergy status to analgesic agent; Z79.899 Other long term (current) drug therapy
CPT/HCPCS: 36415; 71045; 80053; 84484; 85025; 93005

== ENCOUNTER 2020-12-04 03:52 | Emergency (ER) | payer MEDICAID ==
[~2020-12-04 03:52] MED LIST changes: +NITR0.4T39 SL
[2020-12-04] MEDS ORDERED: NITROGLYCERIN 0.4 MG SL TABS BTL 25'S SL PRN (04:15)
--- NOTE | 2020-12-04 04:26 | ED Chest Pain ---
General Chief Complaint: Chest Pain Stated Complaint: CHEST PAIN Nursing Triage Note: Pt complaining of chest pain that started around 0100. Pt states he was seen for the same pain about a month ago and was supposed to make an appointment with a physician practice coordinator but hasn't done that yet. Nursing Sepsis Screen: No Definite Risk Exam Limitations: no limitations History of Present Illness Date Seen by Provider: Dec 04, 2020 Time Seen by Provider: 03:55 Initial Comments Patient is a 40-year-old male who presents with continuous substernal chest pain starting 2 hours prior to ED arrival waking him from sleep. Patient is described as pressure-like. Chest pressure is continuous nonradiating nonm igratory does not wax and wane is not made worse with exertion or movement is not relieved by rest. It is associate with nausea but not not shortness of breath sweats or vomiting. Symptoms are nonexertional. Patient was evaluated in the emergency department 1 month ago for the same. He was prescribed nitroglycerin and instructed to follow-up with his PCP and establish with a ca rdiologist. He has not taken nitroglycerin at home this evening.. Reports both parents have history of CAD and are living. Patient is a non-smoker does not drink alcohol. Timing/Duration: 1-3 hours Severity/Quality: dull Location: other Radiation: other Activities at Onset: other Prior CP/Workup: other Modifying Factors: improves with other Associated Symptoms: shortness of breath Allergies and Home Medications Allergies Coded Allergies: Penicillins (Unverified Adverse Reaction, Unknown, 10/20/19) shellfish derived (Unverified Adverse Reaction, Unknown, 10/20/19) Uncoded Allergies: acetamenophen (Adverse Reaction, Unknown, 10/20/19) Home Medications Albuterol Sulfate 1 Puff Puff, 2 PUFF INH Q4H PRN for WHEEZING 1 PUFF = 90 MCG Prescribed by: AALIYAH JAMA on 11/09/19 0848 Diclofenac Sodium 75 Mg Tablet.dr, 75 MG PO BID Prescribed by: HUMAIRA PITTS on 10/20/19 1214 Famotidine 20 Mg Tablet, 20 MG PO BID Prescribed by: CHAVEZ HANNON on 08/15/20 0048 Nitroglycerin 0.4 Mg Tab.subl, 0.4 MG SL UD PRN for CHEST PAIN Prescribed by: MARIA GUADALUPE FLORES on 10/31/20 1106 Omeprazole 40 Mg Capsule., 40 MG PO Q12H Prescribed by: CHAVEZ HANNON on 08/15/2047 Sucralfate 1 Gm Tablet, 1 GM PO ACHS Chew tablet to a slurry and then swallow Prescribed by: CHAVEZ HANNON on 08/15/2047 Patient Home Medication List Home Medication List Reviewed: Yes Review of Systems Review of Systems Constitutional: see HPI EENTM: See HPI Respiratory: See HPI Cardiovascular: See HPI Gastrointestinal: See HPI Genitourinary: See HPI Musculoskeletal: see HPI Skin: see HPI Psychiatric/Neurological: See HPI Endocrine: See HPI Hematologic/Lymphatic: See HPI Past Jtignyp-Bnjaev-Mkvxde Hx Past Med/Social Hx: Reviewed Nursing Past Med/Soc Hx Patient Social History Alcohol Use: Denies Use Type Used: Smokeless Tobacco 2nd Hand Smoke Exposure: No Recent Infectious Disease Expo: No Recent Hopitalizations: No Seasonal Allergies Seasonal Allergies: No Past Medical History Surgeries: Yes Appendectomy Respiratory: Yes Asthma Cardiac: Yes Hypertension Neurological: Yes (Epilepsy, cleared 2 yrs ago. Took self off meds) Seizure Disorder Genitourinary: No Gastrointestinal: Yes Gastroesophageal Reflux Musculoskeletal: No Endocrine: No HEENT: No Cancer: No Psychosocial: No Integumentary: No Blood Disorders: No Physical Exam Vital Signs Vital Signs - First Documented 12/04/20 03:53 Temp 36.6 Pulse 70 Resp 16 B/P (MAP) 126/77 (93) Pulse Ox 97 O2 Delivery Room Air Capillary Refill : Less Than 3 Seconds Height, Weight, BMI Height: '" Weight: lbs. oz. 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 Skin: Normal Color, Warm/Dry Focused Exam Sepsis Stage: Ruled Out Progress/Results/Core Measures Results/Orders Lab Results Laboratory Tests Test 12/04/20 04:01 12/04/20 05:51 Range/Units White Blood Count 8.6 4.3-11.0 10^3/uL Red Blood Count 5.25 4.35-5.85 10^6/uL Hemoglobin 15.6 13.3-17.7 G/DL Hematocrit 45 40-54 % Mean Corpuscular Volume 86 80-99 FL Mean Corpuscular Hemoglobin 30 25-34 PG Mean Corpuscular Hemoglobin Concent 35 32-36 G/DL Red Cell Distribution Width 13.3 10.0-14.5 % Platelet Count 312 130-400 10^3/uL Mean Platelet Volume 9.1 7.4-10.4 FL Neutrophils (%) (Auto) 49 42-75 % Lymphocytes (%) (Auto) 39 12-44 % Monocytes (%) (Auto) 8 0-12 % Eosinophils (%) (Auto) 4 0-10 % Basophils (%) (Auto) 1 0-10 % Neutrophils # (Auto) 4.2 1.8-7.8 X 10^3 Lymphocytes # (Auto) 3.3 1.0-4.0 X 10^3 Monocytes # (Auto) 0.7 0.0-1.0 X 10^3 Eosinophils # (Auto) 0.3 0.0-0.3 10^3/uL Basophils # (Auto) 0.1 0.0-0.1 10^3/uL Sodium Level 136 135-145 MMOL/L Potassium Level 3.4 L 3.6-5.0 MMOL/L Chloride Level 104 98-107 MMOL/L Carbon Dioxide Level 24 21-32 MMOL/L Anion Gap 8 5-14 MMOL/L Blood Urea Nitrogen 17 7-18 MG/DL Creatinine 0.80 0.60-1.30 MG/DL Estimat Glomerular Filtration Rate > 60 BUN/Creatinine Ratio 21 Glucose Level 110 H 70-105 MG/DL Calcium Level 8.8 8.5-10.1 MG/DL Corrected Calcium 8.9 8.5-10.1 MG/DL Total Bilirubin 0.2 0.1-1.0 MG/DL Aspartate Amino Transf (AST/SGOT) 13 5-34 U/L Alanine Aminotransferase (ALT/SGPT) 15 0-55 U/L Alkaline Phosphatase 93 40-136 U/L Troponin I < 0.30 < 0.30 <0.30 NG/ML Total Protein 6.6 6.4-8.2 GM/DL Albumin 3.9 3.2-4.5 GM/DL My Orders Orders - HANNON,CHAVEZ DO Cbc With Automated Diff (12/04/20 04:05) Comprehensive Metabolic Panel (12/04/20 04:05) Troponin I Fs (12/04/20 04:05) Chest 1 View Ap/Pa Only (12/04/20 04:05) Nitroglycerin 0.4 Mg Btl 25's (Nitrostat (12/04/20 04:15) Ekg Tracing (12/04/20 04:08) Ed Iv/Invasive Line Start (12/04/20 04:08) Troponin I Fs (12/04/20 06:00) Medications Given in ED Current Medications Medications Dose Ordered Sig/Yaima Route Start Time Stop Time Status Last Admin Dose Admin Nitroglycerin 1 TAB Q 5 MIN X 3 NEEDED PRN SL 12/04/20 04:15 12/04/20 04:11 0.4 MG Vital Signs/I&O 12/04/20 03:53 Temp 36.6 Pulse 70 Resp 16 B/P (MAP) 126/77 (93) Pulse Ox 97 O2 Delivery Room Air Blood Pressure Mean: 93 Departure Communication (Admissions) Chest x-ray: No acute cardiopulmonary disease. EKG: Normal sinus rhythm, rate 64, LVH, normal NV, QRS, QTc Atypical chest pain. Nonexertional. Relieved with nitroglycerin x1. EKG and repeat troponin negative. Patient currently on reflux medications. Patient has a heart score of 1. Recommendations are to follow-up with PCP in the next 1 to 2 days for referral to physician practice coordinator. Return precautions reviewed. Patient verbalizes understanding agreement discharge instructions prior to departure. Impression Primary Impression: Chest pain Disposition: 01 HOME, SELF-CARE Condition: Stable Departure-Patient Inst. Decision time for Depature: 06:32 Referrals: XOCHITL LICONA SNOW FENCE ERECTOR (PCP/Family) Primary Care Physician Patient Instructions: Chest Pain, Adult ED Add. Discharge Instructions: Your evaluated the emergency department for chest pain. EKG lab and imaging studies were performed and are nondiagnostic. Please continue antiacid medication take Maalox or Gaviscon for esophageal spasm or chest pain at night. Follow-up with your PCP for referral to physician practice coordinator. Given your family history of heart disease it is important that you were evaluated for underlying heart disease. Return to the ED if new or worsening symptoms. All discharge instructions reviewed with patient and/or family. Voiced understanding. CHAVEZ HANNON DO Dec 04, 2020 04:26
[2020-12-04 04:40] LABS: HEMOGLOBIN 15.6 G/DL (13.3-17.7); MEAN CORPUSCULAR HEMOGLOBIN 30 PG (25-34); WHITE BLOOD COUNT 8.6 10^3/uL (4.3-11.0)
[2020-12-04 04:41] LABS: BASOPHILS # (AUTO) 0.1 10^3/uL (0.0-0.1); BASOPHILS % (AUTO) 1 % (0-10); EOSINOPHILS # (AUTO) 0.3 10^3/uL (0.0-0.3); EOSINOPHILS % (AUTO) 4 % (0-10); HEMATOCRIT 45 % (40-54); LYMPHOCYTES # (AUTO) 3.3 X 10^3 (1.0-4.0); LYMPHOCYTES % (AUTO) 39 % (12-44); MEAN CORPUSCULAR HGB CONC 35 G/DL (32-36); MEAN CORPUSCULAR VOLUME 86 FL (80-99); MEAN PLATELET VOLUME 9.1 FL (7.4-10.4); MONOCYTES # (AUTO) 0.7 X 10^3 (0.0-1.0); MONOCYTES % (AUTO) 8 % (0-12); NEUTROPHILS # (AUTO) 4.2 X 10^3 (1.8-7.8); NEUTROPHILS % (AUTO) 49 % (42-75); PLATELET COUNT 312 10^3/uL (130-400)
[2020-12-04] MEDS ORDERED: ACETAMINOPHEN 500 MG TAB (TYLENOL) PO ONE (04:45)
[2020-12-04 05:01] LABS: ALANINE AMINOTRANSFERASE 15 U/L (0-55); ALBUMIN 3.9 GM/DL (3.2-4.5); ALKALINE PHOSPHATASE 93 U/L (40-136); BILIRUBIN,TOTAL 0.2 MG/DL (0.1-1.0); BUN/CREATININE RATIO 21; CALCIUM 8.8 MG/DL (8.5-10.1); CARBON DIOXIDE 24 MMOL/L (21-32); CHLORIDE 104 MMOL/L (98-107); GFR ESTIMATED > 60; GLUCOSE 110 MG/DL (70-105); POTASSIUM 3.4 MMOL/L (3.6-5.0); SODIUM 136 MMOL/L (135-145); TOTAL PROTEIN 6.6 GM/DL (6.4-8.2)
[2020-12-04 06:34] VITALS: BP 115/78
--- NOTE | 2020-12-04 07:26 | Diagnostic Imaging Report ---
HISTORY: Chest pain COMPARISON: 10/31/2000 TECHNIQUE: Frontal view of the chest FINDINGS: Lung volumes are normal. No focal consolidation is seen. There is no pleural effusion or pneumothorax. The cardiac silhouette is normal in size. IMPRESSION: 1. No acute pulmonary abnormality. Dictated by: Dictated on workstation # [id number]
== END 2020-12-04 06:37 | disposition home or self-care (01) ==
LOC: EDUNIT# 03:52 → ER FS 03:54
DX: R07.89 Other chest pain (principal); I10 Essential (primary) hypertension; J45.909 Unspecified asthma, uncomplicated; K21.9 Gastro-esophageal reflux disease without esophagitis; Z79.899 Other long term (current) drug therapy
CPT/HCPCS: 36415; 71045; 80053; 84484; 85025; 93005

== ENCOUNTER 2020-12-06 21:43 | Emergency (ER) | payer MEDICAID ==
[~2020-12-06] VITALS: Ht 172.7 cm; Wt 79.4 kg
[~2020-12-06 21:43] MED LIST changes: -OMEP40CA27 PO; +OMEP40CA6 PO
[2020-12-06 21:45] VITALS: BP 135/91
--- NOTE | 2020-12-06 21:54 | ED General ---
General Stated Complaint: SEIZURES History of Present Illness Date Seen by Provider: Dec 06, 2020 Time Seen by Provider: 21:47 Initial Comments 40-year-old male presents via EMS with a complaint of seizure. Patient with past medical history of seizures, although he states is been off medication for a few years because his doctor said he no longer needed it. States that he occasionally has seizures, but is unaware of it. Today does not recall having a seizure, but states he woke up outside when paramedics were picking up. EMS did not report any seizure activity and in route only give Zofran as he stated he was nauseated. Patient alert and oriented on arrival. Patient says he was seen by an urgent care today and started on prednisone for some chest tightness. States he has asthma and has been having a slight cough without fever for 3 days. Seen in this ER a few days ago for chest tightness and was worked up and sent home with a negative work-up. Allergies and Home Medications Allergies Coded Allergies: Penicillins (Unverified Adverse Reaction, Unknown, 10/20/19) shellfish derived (Unverified Adverse Reaction, Unknown, 10/20/19) Uncoded Allergies: acetamenophen (Adverse Reaction, Unknown, 10/20/19) Home Medications Albuterol Sulfate 1 Puff Puff, 2 PUFF INH Q4H PRN for WHEEZING 1 PUFF = 90 MCG Prescribed by: AALIYAH JAMA on 11/09/19 0848 Diclofenac Sodium 75 Mg Tablet., 75 MG PO BID Prescribed by: HUMAIRA PITTS on 10/20/19 1214 Famotidine 20 Mg Tablet, 20 MG PO BID Prescribed by: CHAVEZ HANNON on 08/15/2047 Nitroglycerin 0.4 Mg Tab.subl, 0.4 MG SL UD PRN for CHEST PAIN Prescribed by: MARIA GUADALUPE FLORES on 10/31/20 1106 Omeprazole 40 Mg Capsule., 40 MG PO Q12H Prescribed by: CHAVEZ HANNON on 08/15/2047 Sucralfate 1 Gm Tablet, 1 GM PO ACHS Chew tablet to a slurry and then swallow Prescribed by: CHAVEZ HANNON on 08/15/2047 Patient Home Medication List Home Medication List Reviewed: Yes Review of Systems Review of Systems Constitutional: No dizziness, No fever; malaise; No weakness EENTM: No ear pain, No dental problems, No hoarseness, No mouth pain, No mouth swelling, No nose pain, No throat pain, No throat swelling Respiratory: cough; No short of breath; wheezing Cardiovascular: chest pain; No edema, No palpitations, No syncope Gastrointestinal: No abdominal pain, No loss of appetite, No nausea, No vomiting Musculoskeletal: No back pain, No joint pain Skin: No change in color, No rash Past Dsahtuy-Wkuuar-Jwkbls Hx Past Med/Social Hx: Reviewed Nursing Past Med/Soc Hx Patient Social History Type Used: Smokeless Tobacco 2nd Hand Smoke Exposure: No Recent Hopitalizations: No Seasonal Allergies Seasonal Allergies: No Past Medical History Surgeries: Yes Appendectomy Respiratory: Yes Asthma Cardiac: Yes Hypertension Neurological: Yes (Epilepsy, cleared 2 yrs ago. Took self off meds) Seizure Disorder Genitourinary: No Gastrointestinal: Yes Gastroesophageal Reflux Musculoskeletal: No Endocrine: No HEENT: No Cancer: No Psychosocial: No Integumentary: No Blood Disorders: No Physical Exam Vital Signs Vital Signs - First Documented 12/06/20 21:45 Temp 36.9 Pulse 81 Resp 17 B/P (MAP) 135/91 (106) O2 Delivery Room Air Capillary Refill : Height, Weight, BMI Height: '" Weight: lbs. oz. 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 as Tested Skin: Normal Color, Warm/Dry Progress/Results/Core Measures Suspected Sepsis SIRS Temperature: Pulse: Respiratory Rate: Laboratory Tests 12/06/20 21:48: White Blood Count 9.2 Blood Pressure / Mean: Laboratory Tests 12/06/20 21:48: Creatinine 0.74, Platelet Count 331, Total Bilirubin 0.3 Results/Orders Lab Results Laboratory Tests Test 12/06/20 21:48 Range/Units White Blood Count 9.2 4.3-11.0 10^3/uL Red Blood Count 5.29 4.35-5.85 10^6/uL Hemoglobin 15.7 13.3-17.7 G/DL Hematocrit 45 40-54 % Mean Corpuscular Volume 85 80-99 FL Mean Corpuscular Hemoglobin 30 25-34 PG Mean Corpuscular Hemoglobin Concent 35 32-36 G/DL Red Cell Distribution Width 13.0 10.0-14.5 % Platelet Count 331 130-400 10^3/uL Mean Platelet Volume 9.2 7.4-10.4 FL Immature Granulocyte % (Auto) 0 % Neutrophils (%) (Auto) 53 42-75 % Lymphocytes (%) (Auto) 36 12-44 % Monocytes (%) (Auto) 7 0-12 % Eosinophils (%) (Auto) 3 0-10 % Basophils (%) (Auto) 1 0-10 % Neutrophils # (Auto) 4.8 1.8-7.8 X 10^3 Lymphocytes # (Auto) 3.3 1.0-4.0 X 10^3 Monocytes # (Auto) 0.6 0.0-1.0 X 10^3 Eosinophils # (Auto) 0.3 0.0-0.3 10^3/uL Basophils # (Auto) 0.1 0.0-0.1 10^3/uL Immature Granulocyte # (Auto) 0.0 0.0-0.1 10^3/uL Sodium Level 138 135-145 MMOL/L Potassium Level 3.9 3.6-5.0 MMOL/L Chloride Level 104 98-107 MMOL/L Carbon Dioxide Level 24 21-32 MMOL/L Anion Gap 10 5-14 MMOL/L Blood Urea Nitrogen 12 7-18 MG/DL Creatinine 0.74 0.60-1.30 MG/DL Estimat Glomerular Filtration Rate > 60 BUN/Creatinine Ratio 16 Glucose Level 127 H 70-105 MG/DL Calcium Level 8.8 8.5-10.1 MG/DL Corrected Calcium 8.7 8.5-10.1 MG/DL Total Bilirubin 0.3 0.1-1.0 MG/DL Aspartate Amino Transf (AST/SGOT) 17 5-34 U/L Alanine Aminotransferase (ALT/SGPT) 17 0-55 U/L Alkaline Phosphatase 87 40-136 U/L Troponin I < 0.30 <0.30 NG/ML Total Protein 6.8 6.4-8.2 GM/DL Albumin 4.1 3.2-4.5 GM/DL My Orders Orders - MARIA GUADALUPE FLORES DO Ed Iv/Invasive Line Start (12/06/20 21:53) Troponin I Fs (12/06/20 21:53) Cbc With Automated Diff (12/06/20 21:53) Comprehensive Metabolic Panel (12/06/20 21:53) Ns Iv 1000 Ml (Sodium Chloride 0.9%) (12/06/20 22:00) Ns Iv 1000 Ml (Sodium Chloride 0.9%) (12/06/20 22:00) Famotidine Injection (Pepcid Injection) (12/06/20 22:30) Medications Given in ED Current Medications Medications Dose Ordered Sig/Yaima Route Start Time Stop Time Status Last Admin Dose Admin Famotidine 20 mg ONCE ONCE IVP 12/06/20 22:30 12/06/20 22:31 DC 12/06/20 22:32 20 MG Vital Signs/I&O 12/06/20 21:45 Temp 36.9 Pulse 81 Resp 17 B/P (MAP) 135/91 (106) O2 Delivery Room Air Capillary Refill : Progress Note : Progress Note Uneventful ER stay with no further intervention needed. Questionable seizure. Hx of seizure disorder on no Sz medication. No witnessed Sz activity by EMS. Unremarkable exam and normal lab findings. Advised to establish and follow up with a PCP to manage his concerns Departure Impression Primary Impression: Seizure-like activity Disposition: 01 HOME, SELF-CARE Condition: Stable Departure-Patient Inst. Decision time for Depature: 22:27 Referrals: XOCHITL LICONA APRN (PCP/Family) Primary Care Physician Patient Instructions: Seizures, Adult (DC) Add. Discharge Instructions: Follow up with your PCP regarding the possibility you are having recurrent seizures. You may need to be evaluated by a Neurologist. At this time you should no longer drive a car or operate machinery. MARIA GUADALUPE FLORES DO Dec 06, 2020 21:54
[2020-12-06] MEDS ORDERED: NS IV 1000 ML 1,000 ML ONE (22:00)
[2020-12-06] MEDS ORDERED: NS IV 1000 ML 1,000 ML IV SCH (22:00)
[2020-12-06 22:01] LABS: BASOPHILS # (AUTO) 0.1 10^3/uL (0.0-0.1); BASOPHILS % (AUTO) 1 % (0-10); EOSINOPHILS # (AUTO) 0.3 10^3/uL (0.0-0.3); EOSINOPHILS % (AUTO) 3 % (0-10); HEMATOCRIT 45 % (40-54); HEMOGLOBIN 15.7 G/DL (13.3-17.7); LYMPHOCYTES # (AUTO) 3.3 X 10^3 (1.0-4.0); LYMPHOCYTES % (AUTO) 36 % (12-44); MEAN CORPUSCULAR HEMOGLOBIN 30 PG (25-34); MEAN CORPUSCULAR HGB CONC 35 G/DL (32-36); MEAN CORPUSCULAR VOLUME 85 FL (80-99); MEAN PLATELET VOLUME 9.2 FL (7.4-10.4); MONOCYTES # (AUTO) 0.6 X 10^3 (0.0-1.0); MONOCYTES % (AUTO) 7 % (0-12); NEUTROPHILS # (AUTO) 4.8 X 10^3 (1.8-7.8); NEUTROPHILS % (AUTO) 53 % (42-75); PLATELET COUNT 331 10^3/uL (130-400); WHITE BLOOD COUNT 9.2 10^3/uL (4.3-11.0)
[2020-12-06 22:21] LABS: ALANINE AMINOTRANSFERASE 17 U/L (0-55); ALKALINE PHOSPHATASE 87 U/L (40-136); BILIRUBIN,TOTAL 0.3 MG/DL (0.1-1.0); BUN/CREATININE RATIO 16; CALCIUM 8.8 MG/DL (8.5-10.1); CARBON DIOXIDE 24 MMOL/L (21-32); CHLORIDE 104 MMOL/L (98-107); CREATININE SERUM 0.74 MG/DL (0.60-1.30); GFR ESTIMATED > 60; GLUCOSE 127 MG/DL (70-105); POTASSIUM 3.9 MMOL/L (3.6-5.0); SODIUM 138 MMOL/L (135-145)
[2020-12-06 22:22] LABS: ALBUMIN 4.1 GM/DL (3.2-4.5); TOTAL PROTEIN 6.8 GM/DL (6.4-8.2)
[2020-12-06] MEDS ORDERED: FAMOTIDINE 20MG/2ML IV (PEPCID) IVP ONE (22:30)
== END 2020-12-06 22:39 | disposition home or self-care (01) ==
LOC: EDUNIT# 21:43 → ER FS 21:44
DX: R29.818 Other symptoms and signs involving the nervous system (principal); J45.909 Unspecified asthma, uncomplicated; I10 Essential (primary) hypertension; K21.9 Gastro-esophageal reflux disease without esophagitis; Z79.899 Other long term (current) drug therapy
CPT/HCPCS: 36415; 80053; 84484; 85025

== ENCOUNTER 2020-12-12 06:54 | Emergency (ER) | payer MEDICAID ==
[~2020-12-12] VITALS: Ht 172 cm; Wt 80.0 kg
[2020-12-12] MEDS ORDERED: ONDANSETRON 4 MG (ZOFRAN) ORAL DISSOLVE TAB PO STA (07:03)
[2020-12-12] MEDS ORDERED: LIDOCAINE 2% VISCOUS 15 ML UDC PO ONE (07:15)
[2020-12-12] MEDS ORDERED: ANTACID SUSP 30 ML UDC (MYLANTA) PO ONE (07:15)
[2020-12-12 07:20] VITALS: BP 125/86
--- NOTE | 2020-12-12 07:20 | ED Abdominal Pain ---
General Chief Complaint: Abdominal/GI Problems Stated Complaint: VOMITING,CP History of Present Illness Date Seen by Provider: Dec 12, 2020 Time Seen by Provider: 07:10 Initial Comments 40-year-old male presents from work with onset of vomiting 30 minutes prior to arrival. Patient states that he woke up feeling fine, did not have breakfast but when drinking water at work he started to feel sick and he vomited [address] himself to the ER afterward. Complains of some upper abdominal discomfort and nausea, no chest pain, no shortness of air, no recent illness, fever or chills. Allergies and Home Medications Allergies Coded Allergies: Penicillins (Unverified Adverse Reaction, Unknown, 10/20/19) shellfish derived (Unverified Adverse Reaction, Unknown, 10/20/19) Uncoded Allergies: acetamenophen (Adverse Reaction, Unknown, 10/20/19) Home Medications Albuterol Sulfate 1 Puff Puff, 2 PUFF INH Q4H PRN for WHEEZING 1 PUFF = 90 MCG Prescribed by: AALIYAH JAMA on 11/09/19 0848 Diclofenac Sodium 75 Mg Tablet.dr, 75 MG PO BID Prescribed by: HUMAIRA PITTS on 10/20/19 1214 Famotidine 20 Mg Tablet, 20 MG PO BID Prescribed by: CHAVEZ HANNON on 08/15/208 Nitroglycerin 0.4 Mg Tab.subl, 0.4 MG SL UD PRN for CHEST PAIN Prescribed by: MARIA GUADALUPE FLORES on 10/31/20 1106 Omeprazole 40 Mg Capsule.dr, 40 MG PO Q12H Prescribed by: CHAVEZ HANNON on 08/15/20 004 Ondansetron 4 Mg Tab.rapdis, 4 MG PO TID Prescribed by: MARIA GUADALUPE FLORES on 12/12/20 0739 Sucralfate 1 Gm Tablet, 1 GM PO ACHS Chew tablet to a slurry and then swallow Prescribed by: CHAVEZ HANNON on 08/15/2047 Patient Home Medication List Home Medication List Reviewed: Yes Review of Systems Review of Systems Constitutional: No fever; malaise EENTM: No Symptoms Reported Respiratory: Denies Cough, Denies Shortness of Air Cardiovascular: Denies Chest Pain, Denies Edema, Denies Palpitations, Denies Syncope Gastrointestinal: See HPI, Abdominal Pain ("discomfort", not pain); Denies Constipated, Denies Diarrhea, Denies Difficulty Swallowing; Nausea; Denies Poor Appetite, Denies Poor Fluid Intake; Vomiting Musculoskeletal: No back pain, No joint pain Skin: No change in color, No rash Past Yfzhewi-Vdkddf-Mntmxq Hx Past Med/Social Hx: Reviewed Nursing Past Med/Soc Hx Patient Social History Type Used: Smokeless Tobacco 2nd Hand Smoke Exposure: No Recent Hopitalizations: No Seasonal Allergies Seasonal Allergies: No Past Medical History Surgeries: Yes Appendectomy Respiratory: Yes Asthma Cardiac: Yes Hypertension Neurological: Yes (Epilepsy, cleared 2 yrs ago. Took self off meds) Seizure Disorder Genitourinary: No Gastrointestinal: Yes Gastroesophageal Reflux Musculoskeletal: No Endocrine: No HEENT: No Cancer: No Psychosocial: No Integumentary: No Blood Disorders: No Physical Exam Vital Signs Vital Signs - First Documented 12/12/20 07:20 Temp 36.5 Pulse 95 Resp 16 B/P (MAP) 125/86 (99) Pulse Ox 98 O2 Delivery Room Air Capillary Refill : Height/Weight/BMI Height: '" Weight: lbs. oz. kg; 26.00 BMI Method: General Appearance: WD/WN, no apparent distress HEENT: PERRL/EOMI, normal ENT inspection Neck: non-tender, supple Respiratory: chest non-tender, lungs clear, normal breath sounds, no respiratory distress, no accessory muscle use Cardiovascular: regular rate, rhythm, no edema, no JVD Gastrointestinal: normal bowel sounds, non tender, soft Extremities: normal range of motion, non-tender, no pedal edema Back: normal inspection, no CVA tenderness Neurologic/Psychiatric: no motor/sensory deficits, alert Skin: normal color, warm/dry Progress/Results/Core Measures Results/Orders Lab Results Laboratory Tests Test 12/12/20 07:03 Range/Units White Blood Count 9.2 4.3-11.0 10^3/uL Red Blood Count 5.56 4.35-5.85 10^6/uL Hemoglobin 16.1 13.3-17.7 G/DL Hematocrit 48 40-54 % Mean Corpuscular Volume 86 80-99 FL Mean Corpuscular Hemoglobin 29 25-34 PG Mean Corpuscular Hemoglobin Concent 34 32-36 G/DL Red Cell Distribution Width 12.9 10.0-14.5 % Platelet Count 311 130-400 10^3/uL Mean Platelet Volume 9.1 7.4-10.4 FL Immature Granulocyte % (Auto) 0 % Neutrophils (%) (Auto) 76 H 42-75 % Lymphocytes (%) (Auto) 17 12-44 % Monocytes (%) (Auto) 5 0-12 % Eosinophils (%) (Auto) 2 0-10 % Basophils (%) (Auto) 0 0-10 % Neutrophils # (Auto) 7.0 1.8-7.8 X 10^3 Lymphocytes # (Auto) 1.5 1.0-4.0 X 10^3 Monocytes # (Auto) 0.5 0.0-1.0 X 10^3 Eosinophils # (Auto) 0.2 0.0-0.3 10^3/uL Basophils # (Auto) 0.0 0.0-0.1 10^3/uL Immature Granulocyte # (Auto) 0.0 0.0-0.1 10^3/uL Sodium Level 138 135-145 MMOL/L Potassium Level 3.6 3.6-5.0 MMOL/L Chloride Level 105 98-107 MMOL/L Carbon Dioxide Level 25 21-32 MMOL/L Anion Gap 8 5-14 MMOL/L Blood Urea Nitrogen 19 H 7-18 MG/DL Creatinine 0.79 0.60-1.30 MG/DL Estimat Glomerular Filtration Rate > 60 BUN/Creatinine Ratio 24 Glucose Level 100 70-105 MG/DL Calcium Level 9.2 8.5-10.1 MG/DL Corrected Calcium 8.9 8.5-10.1 MG/DL Total Bilirubin 0.4 0.1-1.0 MG/DL Aspartate Amino Transf (AST/SGOT) 16 5-34 U/L Alanine Aminotransferase (ALT/SGPT) 16 0-55 U/L Alkaline Phosphatase 98 40-136 U/L Troponin I < 0.30 <0.30 NG/ML Total Protein 7.3 6.4-8.2 GM/DL Albumin 4.4 3.2-4.5 GM/DL My Orders Orders - ROVENSTINE,MARIA GUADALUPE L DO Ondansetron Oral Dissolve Tab (Zofran (12/12/20 07:03) Antacid Suspension (Mylanta Suspension (12/12/20 07:15) Lidocaine 2% Viscous 15 Ml (Xylocaine Vi (12/12/20 07:15) Ekg Tracing (12/12/20 07:03) Ed Iv/Invasive Line Start (12/12/20 07:14) Cbc With Automated Diff (12/12/20 07:14) Comprehensive Metabolic Panel (12/12/20 07:14) Troponin I Fs (12/12/20 07:14) Ekg Tracing (12/12/20 07:14) Acute Abd Series (12/12/20 07:14) Medications Given in ED Current Medications Medications Dose Ordered Sig/Yaima Route Start Time Stop Time Status Last Admin Dose Admin Al Hydrox/Mg Hydrox/Simethicone 30 ml ONCE ONCE PO 12/12/20 07:15 12/12/20 07:16 DC 12/12/20 07:11 30 ML Lidocaine HCl 5 ml ONCE ONCE PO 12/12/20 07:15 12/12/20 07:16 DC 12/12/20 07:11 5 ML Vital Signs/I&O 12/12/20 07:20 Temp 36.5 Pulse 95 Resp 16 B/P (MAP) 125/86 (99) Pulse Ox 98 O2 Delivery Room Air Progress Progress Note : Progress Note No episodes of vomiting while in ER, pt very stoic and says very few words. No chest pain, shortness of air or abdominal pain at DC. Discussed return to work and follow up with PCP. Initial ECG Impression Time: 07:12 Initial ECG Rate: 90 Initial ECG Rhythm: Normal Sinus Initial ECG Intervals: Normal Initial ECG Impression: Normal Departure Impression Primary Impression: Nausea and vomiting Qualified Codes: R11.2 - Nausea with vomiting, unspecified Disposition: 01 HOME, SELF-CARE Condition: Stable Departure-Patient Inst. Referrals: XOCHITL LICONA APRN (PCP/Family) Primary Care Physician Add. Discharge Instructions: call and follow up with your primary doctor this week. Return to the ER if your symptoms get worse. All discharge instructions reviewed with patient and/or family. Voiced understanding. Scripts Ondansetron (Ondansetron Odt) 4 Mg Tab.rapdis 4 MG PO TID for Nausea, #10 TAB Prov: MADELYNSTMARIA GUADALUPE STOUT DO 12/12/20 MADELYNSTINEMARIA GUADALUPE DO Dec 12, 2020 07:20
[2020-12-12 07:33] LABS: BASOPHILS % (AUTO) 0 % (0-10); EOSINOPHILS # (AUTO) 0.2 10^3/uL (0.0-0.3); EOSINOPHILS % (AUTO) 2 % (0-10); HEMATOCRIT 48 % (40-54); HEMOGLOBIN 16.1 G/DL (13.3-17.7); LYMPHOCYTES # (AUTO) 1.5 X 10^3 (1.0-4.0); LYMPHOCYTES % (AUTO) 17 % (12-44); MEAN CORPUSCULAR HEMOGLOBIN 29 PG (25-34); MEAN CORPUSCULAR HGB CONC 34 G/DL (32-36); MEAN CORPUSCULAR VOLUME 86 FL (80-99); MEAN PLATELET VOLUME 9.1 FL (7.4-10.4); MONOCYTES # (AUTO) 0.5 X 10^3 (0.0-1.0); MONOCYTES % (AUTO) 5 % (0-12); NEUTROPHILS % (AUTO) 76 % (42-75); PLATELET COUNT 311 10^3/uL (130-400); WHITE BLOOD COUNT 9.2 10^3/uL (4.3-11.0)
[2020-12-12 07:35] LABS: ALANINE AMINOTRANSFERASE 16 U/L (0-55); ALKALINE PHOSPHATASE 98 U/L (40-136); BILIRUBIN,TOTAL 0.4 MG/DL (0.1-1.0); BUN/CREATININE RATIO 24; CALCIUM 9.2 MG/DL (8.5-10.1); CARBON DIOXIDE 25 MMOL/L (21-32); CHLORIDE 105 MMOL/L (98-107); CREATININE SERUM 0.79 MG/DL (0.60-1.30); GFR ESTIMATED > 60; GLUCOSE 100 MG/DL (70-105); POTASSIUM 3.6 MMOL/L (3.6-5.0); SODIUM 138 MMOL/L (135-145)
[2020-12-12 07:36] LABS: ALBUMIN 4.4 GM/DL (3.2-4.5); TOTAL PROTEIN 7.3 GM/DL (6.4-8.2)
[2020-12-12] MEDS ORDERED: ONDA4TAB11 PO (07:39)
--- NOTE | 2020-12-12 07:40 | Diagnostic Imaging Report ---
Indication: Epigastric pain and emesis Supine and upright views of the abdomen are obtained with single view of the chest. Comparison is made to study of 08/14/2020. Lungs appear clear apart from probable calcified granuloma in the right upper lobe. Bowel gas pattern is unremarkable. There is no evidence of free intraperitoneal gas or pneumatosis. No obstruction is identified. IMPRESSION: No acute abnormality. Dictated by: Dictated on workstation # [id number]
== END 2020-12-12 07:41 | disposition home or self-care (01) ==
LOC: EDUNIT# 06:54 → ER FS 06:56
DX: R11.2 Nausea with vomiting, unspecified (principal); I10 Essential (primary) hypertension; J45.909 Unspecified asthma, uncomplicated; K21.9 Gastro-esophageal reflux disease without esophagitis; Z79.899 Other long term (current) drug therapy
CPT/HCPCS: 36415; 74022; 80053; 84484; 85025; 93005

== ENCOUNTER 2021-01-09 05:06 | Emergency (ER) | payer MEDICAID ==
[~2021-01-09] VITALS: Ht 172.7 cm; Wt 74.8 kg
[~2021-01-09 05:06] MED LIST changes: +ONDA4TAB11 PO
[2021-01-09 05:18] VITALS: BP 116/82
--- NOTE | 2021-01-09 05:26 | ED Integumentary General ---
General Chief Complaint: Skin/Wound Problems Stated Complaint: POISON SHILPI Nursing Triage Note: PT AMBULATE TO ROOM FS02 WITH C/O POISON SHILPI RASH. Source: patient History of Present Illness Date Seen by Provider: Jan 09, 2021 Time Seen by Provider: 05:15 Initial Comments Patient is a 40-year-old male with a history of poison shilpi exposure 2 days ago who presents with significant poison shilpi exposure between his lower back and towards his buttocks. Patient reports intense itching to this region. He has been treating it with calamine lotion and Benadryl with limited effect. Denies facial or ocular involvement. No other symptoms or complaints Timing/Duration: constant Severity: moderate Location: genitalia Possible Cause: other Modifying Factors: improves with antihistamine, improves with calamine lotion, improves with scratching Associated Symptoms: other Allergies and Home Medications Allergies Coded Allergies: codeine (Verified Allergy, Unknown, 01/09/21) prednisone (Verified Allergy, Unknown, 01/09/21) Penicillins (Unverified Adverse Reaction, Unknown, 10/20/19) shellfish derived (Unverified Adverse Reaction, Unknown, 10/20/19) Uncoded Allergies: acetamenophen (Adverse Reaction, Unknown, 10/20/19) Home Medications Albuterol Sulfate 1 Puff Puff, 2 PUFF INH Q4H PRN for WHEEZING 1 PUFF = 90 MCG Prescribed by: AALIYAH JAMA on 11/09/19 0848 Diclofenac Sodium 75 Mg Tablet., 75 MG PO BID Prescribed by: HUMAIRA PITTS on 10/20/19 1214 Famotidine 20 Mg Tablet, 20 MG PO BID Prescribed by: CHAVEZ HANNON on 08/15/20 0048 Nitroglycerin 0.4 Mg Tab.subl, 0.4 MG SL UD PRN for CHEST PAIN Prescribed by: MARIA GUADALUPE FLORES on 10/31/20 1106 Omeprazole 40 Mg Capsule., 40 MG PO Q12H Prescribed by: CHAVEZ HANNON on 08/15/20 0048 Ondansetron 4 Mg Tab.rapdis, 4 MG PO TID Prescribed by: MARIA GUADALUPE FLORES on 12/12/20 0739 Sucralfate 1 Gm Tablet, 1 GM PO ACHS Chew tablet to a slurry and then swallow Prescribed by: CHAVEZ HANNON on 08/15/20 0048 Patient Home Medication List Home Medication List Reviewed: Yes Review of Systems Review of Systems Constitutional: see HPI, diaphoresis Respiratory: see HPI Cardiovascular: see HPI Gastrointestinal: see HPI Musculoskeletal: see HPI Skin: see HPI Psychiatric/Neurological: See HPI Endocrine: See HPI Hematologic/Lymphatic: See HPI Past Yhzkubv-Fbnhaz-Ergqux Hx Seasonal Allergies Seasonal Allergies: No Past Medical History Surgeries: Yes Appendectomy Respiratory: Yes Asthma Cardiac: Yes Hypertension Neurological: Yes (Epilepsy, cleared 2 yrs ago. Took self off meds) Seizure Disorder Genitourinary: No Gastrointestinal: Yes Gastroesophageal Reflux Musculoskeletal: No Endocrine: No HEENT: No Cancer: No Psychosocial: No Integumentary: No Blood Disorders: No Physical Exam Vital Signs Vital Signs - First Documented 01/09/21 05:18 Temp 36.7 Pulse 72 Resp 18 B/P (MAP) 116/82 (93) O2 Delivery Room Air Capillary Refill : Less Than 3 Seconds General Appearance: WD/WN, no apparent distress HEENT: PERRL/EOMI, normal ENT inspection Neurologic/Psychiatric: alert, normal mood/affect, oriented x 3 Skin: other (Large raised red patches of skin and confluent patches with satellite regions to lower torso and buttocks) Progress/Results/Core Measures Results/Orders My Orders Orders - CHAVEZ HANNON DO Dexamethasone Injection (Decadron Inje (01/09/21 05:30) Hydroxyzine Cap/Tab (Vistaril) (01/09/21 05:30) Medications Given in ED Current Medications Medications Dose Ordered Sig/Yaima Route Start Time Stop Time Status Last Admin Dose Admin Dexamethasone Sodium Phosphate 10 mg ONCE ONCE IM 01/09/21 05:30 01/09/21 05:31 DC 01/09/21 05:25 10 MG Hydroxyzine Pamoate 50 mg ONCE ONCE PO 01/09/21 05:30 01/09/21 05:31 DC 01/09/21 05:24 50 MG Vital Signs/I&O 01/09/21 05:18 Temp 36.7 Pulse 72 Resp 18 B/P (MAP) 116/82 (93) O2 Delivery Room Air Blood Pressure Mean: 93 Departure Communication (Admissions) Decadron and Atarax given. Patient observed to rule out observed allergic reaction to medications. Will discharge home with instructions to continue treatment and follow-up with PCP as needed. Return precautions reviewed Impression Primary Impression: Plant dermatitis Disposition: 01 HOME, SELF-CARE Condition: Stable Departure-Patient Inst. Decision time for Depature: 06:02 Referrals: XOCHITL LICONA APRN (PCP/Family) Primary Care Physician Patient Instructions: Dermatitis Add. Discharge Instructions: Please take Atarax for itching and Decadron as directed for treatment of poison shilpi. Complete full course of antibiotics. Follow-up with your PCP in 7 to 10 days s if symptoms persist. Turn to the ED if new or worsening symptoms. All discharge instructions reviewed with patient and/or family. Voiced understanding. Scripts Cephalexin (Cephalexin) 500 Mg Tablet 500 MG PO TID, #21 TAB Prov: CHAVEZ HANNON DO 01/09/21 Hydroxyzine HCl (Hydroxyzine HCl) 25 Mg Tablet 50 MG PO Q8H, #20 TAB Prov: CHAVEZ HANNON DO 01/09/21 Dexamethasone (Decadron) 4 Mg Tablet 4 MG PO BID, #14 TAB Prov: CHAVEZ HANNON DO 01/09/21 CHAVEZ HANNON DO Jan 09, 2021 05:26
[2021-01-09] MEDS ORDERED: hydrOXYzine (VISTARIL/ATARAX) 25 MG capsule/tablet PO ONE (05:30)
[2021-01-09] MEDS ORDERED: DEXA4TAB66 PO (06:06)
[2021-01-09] MEDS ORDERED: HYDR-700 PO (06:06)
[2021-01-09] MEDS ORDERED: CEPH500T PO (06:06)
== END 2021-01-09 06:13 | disposition home or self-care (01) ==
LOC: EDUNIT# 05:06 → ER FS 05:07
DX: L25.5 Unspecified contact dermatitis due to plants, except food (principal); J45.909 Unspecified asthma, uncomplicated; I10 Essential (primary) hypertension; K21.9 Gastro-esophageal reflux disease without esophagitis; Z79.899 Other long term (current) drug therapy
CPT/HCPCS: 96374; 99284

== ENCOUNTER 2021-01-24 07:36 | Emergency (ER) | payer MEDICAID ==
[~2021-01-24] VITALS: Ht 172.7 cm; Wt 78.5 kg
[~2021-01-24 07:36] MED LIST changes: +CEPH500T PO; +DEXA4TAB66 PO; +HYDR-700 PO
--- NOTE | 2021-01-24 08:00 | ED General ---
General Stated Complaint: DIZZINESS; HEADACHE Source of Information: Patient Exam Limitations: No Limitations History of Present Illness Date Seen by Provider: Jan 24, 2021 Time Seen by Provider: 07:45 Initial Comments Patient is a 40-year-old male who presents with bitemporal headache and dizziness starting 2 hours prior to ED arrival. Patient states headache is dull low-grade and is worse with palpation and movement. It is nonmigratory. Patient states he rarely gets headaches which i prompted his ER visit this morning. No medications or therapies prior to PE arrival. He denies denies nausea vomiting or neck pain. No fever chills, sweats. . Denies history of frequent or migraine headaches. Timing/Duration: 1-3 Hours Severity: Moderate Modifying Factors: improves with Rest Associated Systoms: Headaches Allergies and Home Medications Allergies Coded Allergies: codeine (Verified Allergy, Unknown, 01/09/21) prednisone (Verified Allergy, Unknown, 01/09/21) Penicillins (Unverified Adverse Reaction, Unknown, 10/20/19) shellfish derived (Unverified Adverse Reaction, Unknown, 10/20/19) Uncoded Allergies: acetamenophen (Adverse Reaction, Unknown, 10/20/19) Home Medications Albuterol Sulfate 1 Puff Puff, 2 PUFF INH Q4H PRN for WHEEZING 1 PUFF = 90 MCG Prescribed by: AALIYAH JAMA on 11/09/19 0848 Cephalexin 500 Mg Tablet, 500 MG PO TID Prescribed by: CHAVEZ HANNON on 01/09/21 06 Dexamethasone 4 Mg Tablet, 4 MG PO BID Prescribed by: CHAVEZ HANNON on 01/09/21 06 Diclofenac Sodium 75 Mg Tablet., 75 MG PO BID Prescribed by: HUMAIRA PITTS on 10/20/19 1214 Famotidine 20 Mg Tablet, 20 MG PO BID Prescribed by: CHAVEZ HANNON on 08/15/20 0048 Hydroxyzine HCl 25 Mg Tablet, 50 MG PO Q8H Prescribed by: CHAVEZ HANNON on 01/09/21 06 Nitroglycerin 0.4 Mg Tab.subl, 0.4 MG SL UD PRN for CHEST PAIN Prescribed by: MARIA GUADALUPE FLORES on 10/31/20 1106 Omeprazole 40 Mg Capsule.dr, 40 MG PO Q12H Prescribed by: CHAVEZ HANNON on 08/15/20 004 Ondansetron 4 Mg Tab.rapdis, 4 MG PO TID Prescribed by: MARIA GUADALUPE FLORES on 12/12/20 0739 Sucralfate 1 Gm Tablet, 1 GM PO ACHS Chew tablet to a slurry and then swallow Prescribed by: CHAVEZ HANNON on 08/15/20 0048 Patient Home Medication List Home Medication List Reviewed: Yes Review of Systems Review of Systems Constitutional: see HPI EENTM: see HPI Respiratory: see HPI Cardiovascular: see HPI Genitourinary: see HPI Musculoskeletal: see HPI Skin: see HPI Psychiatric/Neurological: See HPI Hematologic/Lymphatic: See HPI Immunological/Allergic: see HPI All Other Systems Reviewed Negative Unless Noted: Yes Past Nhuczuu-Widbmu-Iusmap Hx Patient Social History Tobacco Use?: Yes Seasonal Allergies Seasonal Allergies: No Past Medical History Surgeries: Yes Appendectomy Respiratory: Yes Asthma Cardiac: Yes Hypertension Neurological: Yes (Epilepsy, cleared 2 yrs ago. Took self off meds) Seizure Disorder Genitourinary: No Gastrointestinal: Yes Gastroesophageal Reflux Musculoskeletal: No Endocrine: No HEENT: No Cancer: No Psychosocial: No Integumentary: No Blood Disorders: No Physical Exam Vital Signs Vital Signs - First Documented 01/24/21 07:56 Temp 36.0 Pulse 68 Resp 16 B/P (MAP) 116/77 (90) Pulse Ox 95 O2 Delivery Room Air Capillary Refill : Height, Weight, BMI Height: '" Weight: lbs. oz. 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 Norm as Tested Focused Exam Sepsis Stage: Ruled Out Progress/Results/Core Measures Suspected Sepsis SIRS Temperature: Pulse: Respiratory Rate: Blood Pressure / Mean: Results/Orders My Orders Orders - CHAVEZ HANNON DO Ibuprofen Tablet (Motrin Tablet) (01/24/21 08:15) Ct Head Wo (01/24/21 08:05) Medications Given in ED Current Medications Medications Dose Ordered Sig/Yaima Route Start Time Stop Time Status Last Admin Dose Admin Ibuprofen 600 mg ONCE ONCE PO 01/24/21 08:15 01/24/21 08:16 DC 01/24/21 08:15 600 MG Vital Signs/I&O 01/24/21 07:56 Temp 36.0 Pulse 68 Resp 16 B/P (MAP) 116/77 (90) Pulse Ox 95 O2 Delivery Room Air Capillary Refill : Departure Communication (Admissions) CT head: No acute findings per radiology report Moderate headache with history of infrequent headaches, possibly the worst headache of the patient's life. Patient neurologically intact with moderate headache relieved with ibuprofen.. CT head negative. Recommend watchful waiting supportive care with PCP follow-up. Impression Primary Impression: Tension type headache Disposition: HOME, SELF-CARE Condition: Stable Departure-Patient Inst. Decision time for Depature: 09:00 Referrals: XOCHITL LICONA APRN (PCP) Primary Care Physician [facility]/MICHAEL (Family) Primary Care Physician Patient Instructions: Headache, Adult ED Add. Discharge Instructions: Please go home and rest. Increase fluids and take ibuprofen as needed for headache. Follow-up with your PCP in 2 to 3 days if symptoms persist. Return to the ED if new or worsening symptoms. CHAVEZ HANNON DO Jan 24, 2021 08:00
[2021-01-24] MEDS ORDERED: IBUPROFEN 600 MG (MOTRIN) TAB PO ONE (08:15)
--- NOTE | 2021-01-24 08:51 | Diagnostic Imaging Report ---
PROCEDURE: CT head without contrast. TECHNIQUE: Multiple contiguous axial images were obtained through the brain without the use of intravenous contrast. Auto Exposure Controls were utilized during the CT exam to meet ALARA standards for radiation dose reduction. INDICATION: Headache. Dizziness. COMPARISON: None. FINDINGS: No intracranial hemorrhage, mass effect, hydrocephalus, or extra-axial fluid collections. No CT evidence of a territorial infarction. Osseous structures are intact. Mucosal thickening in the floor of the maxillary sinuses. The mastoids are clear. IMPRESSION: No acute intracranial CT findings. Dictated by: Dictated on workstation # [id number]
[2021-01-24 09:24] VITALS: BP 120/82
--- OUTSIDE RECORDS SUMMARY | 2021-01-24 20:56 | XMS REPORT | Clinical Summary ---
Author Author [facility] Organization [facility] Address Unknown Phone Unavailable Care Team Providers Care Harmonica Maker Name Role Phone PCP Unavailable Allergies Not on File Medications Not on file Active Problems Not on file Social History Date Tobacco Use Types Packs/Day Years Used Never Assessed Sex Assigned at Date Recorded Not on file Last Filed Vital Signs Not on file Plan of Treatment Not on file Results Not on filefrom Last 3 Months
== END 2021-01-24 09:24 | disposition home or self-care (01) ==
LOC: EDUNIT# 07:36 → ER FS 07:38
DX: G44.209 Tension-type headache, unspecified, not intractable (principal); I10 Essential (primary) hypertension; J45.909 Unspecified asthma, uncomplicated; K21.9 Gastro-esophageal reflux disease without esophagitis; Z88.5 Allergy status to narcotic agent; Z79.899 Other long term (current) drug therapy
CPT/HCPCS: 70450

== ENCOUNTER 2021-07-17 08:25 | Emergency (ER) | payer MEDICAID ==
[~2021-07-17] VITALS: Ht 172 cm; Wt 78.5 kg
--- NOTE | 2021-07-17 08:50 | Diagnostic Imaging Report ---
PROCEDURE: CT head without contrast. TECHNIQUE: Multiple contiguous axial images were obtained through the brain without the use of intravenous contrast. Auto Exposure Controls were utilized during the CT exam to meet ALARA standards for radiation dose reduction. INDICATION: Head injury with pain COMPARISON: 01/24/2021 CT HEAD: CT images of the head were obtained. FINDINGS: Ventricles and sulci are within normal limits for size. There is no intracranial hemorrhage identified. There is no abnormal mass effect or shift of midline structures. There continued mucous retention cysts or polyps present within the maxillary sinuses. IMPRESSION: Unremarkable CT of the head. Dictated by: Dictated on workstation # [id number]
[2021-07-17 08:55] VITALS: BP 117/87
--- NOTE | 2021-07-17 09:03 | ED Head Injury ---
General Chief Complaint: Head/Cervical Problems Stated Complaint: HEAD INJ Nursing Triage Note: PT WAS UP ON A BUNK BED LAST PM CHANGING A LIGHT BULB AND HE REPORTS HE FELL OFF THE BED AND HIT HIS HEAD ON A DRESSER. C/O LEFT SIDED HEAD PAIN. NO SWELLING OR SKIN OPENINGS NOTED. Source: patient Exam Limitations: no limitations History of Present Illness Date Seen by Provider: Jul 17, 2021 Time Seen by Provider: 08:30 Initial Comments Patient is a 41-year-old male who presents with reported head injury. Patient states he fell from the top bunk bed yesterday while trying to change a light bulb and striking his the left side of his head on a dresser as he felt a floor. Reports brief loss of consciousness. And one episode of vomiting following. Patient states he called 911 last night but then refused transport. Reports persistent headache this morning. Currently denies nausea. No change in vision, midline neck pain, loss of balance or other injury or pain complaint. No medications or therapies taken prior to ED arrival. Patient is not on anticoagulation therapy. Occurred: yesterday Severity: moderate Location: other Method of Injury: other Associated Systoms: Other Allergies and Home Medications Allergies Coded Allergies: codeine (Verified Allergy, Unknown, 01/09/21) prednisone (Verified Allergy, Unknown, 01/09/21) Penicillins (Unverified Adverse Reaction, Unknown, 10/20/19) shellfish derived (Unverified Adverse Reaction, Unknown, 10/20/19) Uncoded Allergies: acetamenophen (Adverse Reaction, Unknown, 10/20/19) Patient Home Medication List Home Medication List Reviewed: Yes Albuterol Sulfate (Ventolin Hfa) 1 Puff Puff, 2 PUFF INH Q4H PRN for WHEEZING Prescribed by: AALIYAH JAMA on 11/09/19 0848 Cephalexin (Cephalexin) 500 Mg Tablet, 500 MG PO TID Prescribed by: CHAVEZ HANNON on 01/09/21 0606 Dexamethasone (Decadron) 4 Mg Tablet, 4 MG PO BID Prescribed by: CHAVEZ HANNON on 01/09/21 0606 Diclofenac Sodium (Diclofenac Sodium) 75 Mg Tablet.dr, 75 MG PO BID Prescribed by: HUMAIRA PITTS on 10/20/19 1214 Famotidine (Pepcid) 20 Mg Tablet, 20 MG PO BID Prescribed by: CHAVEZ HANNON on 08/15/20 0048 Hydroxyzine HCl (Hydroxyzine HCl) 25 Mg Tablet, 50 MG PO Q8H Prescribed by: CHAVEZ HANNON on 01/09/21 0606 Nitroglycerin (Nitroglycerin) 0.4 Mg Tab.subl, 0.4 MG SL UD PRN for CHEST PAIN Prescribed by: MARIA GUADALUPE FLORES on 10/31/20 1106 Omeprazole (Omeprazole) 40 Mg Capsule.dr, 40 MG PO Q12H Prescribed by: CHAVEZ HANNON on 08/15/2047 Ondansetron (Ondansetron Odt) 4 Mg Tab.rapdis, 4 MG PO TID Prescribed by: MARIA GUADALUPE FLORES on 12/12/20 0739 Sucralfate (Sucralfate) 1 Gm Tablet, 1 GM PO ACHS Prescribed by: CHAVEZ HANNON on 08/15/2047 Review of Systems Review of Systems Constitutional: see HPI Eyes: See HPI Ears, Nose, Mouth, Throat: see HPI Respiratory: see HPI Cardiovascular: see HPI Gastrointestinal: see HPI Genitourinary: see HPI Musculoskeletal: see HPI Skin: see HPI Psychiatric/Neurological: See HPI Endocrine: See HPI Hematologic/Lymphatic: See HPI All Other Systems Reviewed Negative Unless Noted: Yes Past Hegrseq-Fobbih-Cewtgx Hx Patient Social History Tobacco Use?: Yes Tobacco type used: Cigarettes Smoking Status: Former Smoker Smokeless Tobacco Frequency: Current Everyday User Use of E-Cig and/or Vaping dev: No Substance use?: No Alcohol Use?: No Pt feels they are or have been: No Seasonal Allergies Seasonal Allergies: No Past Medical History Surgery/Hospitalization HX: APPY, AND PERITONSILAR ABSCESS Surgeries: Yes Appendectomy Respiratory: Yes Asthma Cardiac: Yes Hypertension Neurological: Yes (Epilepsy, cleared 2 yrs ago. Took self off meds) Seizure Disorder Genitourinary: No Gastrointestinal: Yes Gastroesophageal Reflux Musculoskeletal: No Endocrine: No HEENT: No Cancer: No Psychosocial: No Integumentary: No Blood Disorders: No Physical Exam Vital Signs Vital Signs - First Documented 07/17/21 08:30 Temp 36.3 Pulse 101 Resp 18 B/P (MAP) 117/87 (97) Pulse Ox 97 O2 Delivery Room Air Capillary Refill : Less Than 3 Seconds Height, Weight, BMI Height: '" Weight: lbs. oz. kg; 26.00 BMI Method: General Appearance: WD/WN, no apparent distress HEENT: PERRL/EOMI, TMs normal Neck: non-tender, full range of motion, supple Cardiovascular: regular rate, rhythm Respiratory: chest non-tender, lungs clear Gastrointestinal: soft Psychiatric: alert, oriented x 3 Crainal Nerves: normal speech Motor/Sensory: no motor deficit, no sensory deficit, no pronator drift Skin: normal color, warm/dry Progress/Results/Core Measures Results/Orders My Orders Orders - CHAVEZ HANNON DO Ct Head Wo (07/17/21 08:35) Vital Signs/I&O 07/17/21 07/17/21 08:30 08:55 Temp 36.3 36.3 Pulse 101 101 Resp 18 18 B/P (MAP) 117/87 (97) 117/87 Pulse Ox 97 97 O2 Delivery Room Air Room Air 2 Blood Pressure Mean: 97 Departure Communication (Admissions) CT head: No acute process. History and exam consistent with gushing with a loss of consciousness. CT head reassuring. Typical closed head injury instructions provided. Return precautions reviewed. Patient verbalizes understanding agreement discharge instructions prior to departure. Impression Primary Impression: Brain concussion Disposition: 01 HOME, SELF-CARE Condition: Stable Departure-Patient Inst. Decision time for Depature: 09:04 Referrals: XOCHITL LICONA APRN (PCP) Primary Care Physician [facility][1]/MICHAEL (Family) Primary Care Physician Patient Instructions: Concussion in Adults Add. Discharge Instructions: Please go ahead and rest. Avoid loud, right and stimulating environments. Take naproxen as needed for headache. Follow-up with your PCP in 3 to 5 days as needed if symptoms persist. All discharge instructions reviewed with patient and/or family. Voiced understanding. CHAVEZ HANNON DO Jul 17, 2021 09:02
[2021-07-17] MEDS ORDERED: IBUPROFEN 600 MG (MOTRIN) TAB PO ONE (09:15)
== END 2021-07-17 09:13 | disposition home or self-care (01) ==
LOC: EDUNIT# 08:25 → ER FS 08:26
DX: S06.0X9A Concussion with loss of consciousness of unspecified duration, initial encounter (principal); J45.909 Unspecified asthma, uncomplicated; I10 Essential (primary) hypertension; K21.9 Gastro-esophageal reflux disease without esophagitis; F17.210 Nicotine dependence, cigarettes, uncomplicated; Z79.899 Other long term (current) drug therapy; W22.8XXA Striking against or struck by other objects, initial encounter
CPT/HCPCS: 70450

== ENCOUNTER 2021-09-11 18:06 | Emergency (ER) | payer MEDICAID ==
[~2021-09-11] VITALS: Ht 172 cm; Wt 80.0 kg
[2021-09-11] MEDS ORDERED: NS IV 1000 ML 1,000 ML IV STA (18:20)
--- NOTE | 2021-09-11 18:28 | ED General ---
General Chief Complaint: Chest Pain Stated Complaint: CP Source of Information: Patient, EMS, Old Records History of Present Illness Date Seen by Provider: Sep 11, 2021 Time Seen by Provider: 18:06 Initial Comments 41-year-old male presenting with complaints of chest pain since this morning when he got off work. He also has been having nausea, vomiting, diarrhea. He has cough that is nonproductive. He has been having chest pains off and on for the last 6 months. He states this pain feels similar. He has seen a human factors ergonomist that visits from [place] but states that they have not given him a diagnosis of why he was having pains. He states that he is allergic to aspirin so EMS did not give him any aspirin. He did receive 2 doses of nitroglycerin which he reports helped with his chest pain. He states he had diarrhea just prior to EMS picking him up to come to the emergency department. He denies being on any antibiotics recently. He has not had anything that triggers the chest pain and symptoms. He denies having anything different to eat or drink recently. He also denies any ill contacts. Timing/Duration: 12 Hours Severity: Severe Associated Systoms: Chest Pain, Cough; No Diaphoresis, No Fever/Chills, No Headaches; Malaise, Nausea/Vomiting; No Rash, No Seizure, No Shortness of Air, No Syncope, No Weakness Allergies and Home Medications Allergies Coded Allergies: codeine (Verified Allergy, Unknown, 01/09/21) prednisone (Verified Allergy, Unknown, 01/09/21) Penicillins (Unverified Adverse Reaction, Unknown, 10/20/19) shellfish derived (Unverified Adverse Reaction, Unknown, 10/20/19) Uncoded Allergies: acetamenophen (Adverse Reaction, Unknown, 10/20/19) Patient Home Medication List Home Medication List Reviewed: Yes Albuterol Sulfate (Ventolin Hfa) 1 Puff Puff, 2 PUFF INH Q4H PRN for WHEEZING Prescribed by: AALIYAH JAMA on 11/09/19 0848 Cephalexin (Cephalexin) 500 Mg Tablet, 500 MG PO TID Prescribed by: CHAVEZ HANNON on 01/09/21 06 Dexamethasone (Decadron) 4 Mg Tablet, 4 MG PO BID Prescribed by: CHAVEZ HANNON on 01/09/21 0606 Diclofenac Sodium (Diclofenac Sodium) 75 Mg Tablet.dr, 75 MG PO BID Prescribed by: HUMAIRA PITTS on 10/20/19 1214 Famotidine (Pepcid) 20 Mg Tablet, 20 MG PO BID Prescribed by: CHAVEZ HANNON on 08/15/20 004 Hydroxyzine HCl (Hydroxyzine HCl) 25 Mg Tablet, 50 MG PO Q8H Prescribed by: CHAVEZ HANNON on 01/09/21 0606 Nitroglycerin (Nitroglycerin) 0.4 Mg Tab.subl, 0.4 MG SL UD PRN for CHEST PAIN Prescribed by: MARIA GUADALUPE FLORES on 10/31/20 1106 Omeprazole (Omeprazole) 40 Mg Capsule.dr, 40 MG PO Q12H Prescribed by: CHAVEZ HANNON on 08/15/2047 Ondansetron (Ondansetron Odt) 4 Mg Tab.rapdis, 4 MG PO TID Prescribed by: MARIA GUADALUPE FLORES on 12/12/20 0739 Ondansetron (Ondansetron Odt) 4 Mg Tab.rapdis, 4 MG PO Q6H PRN for NAUSEA/VOMI TING Prescribed by: YEFRI VILLALOBOS on 09/11/212034 Sucralfate (Sucralfate) 1 Gm Tablet, 1 GM PO ACHS Prescribed by: CHAVEZ HANNON on 08/15/2047 Review of Systems Review of Systems Constitutional: No chills, No diaphoresis, No dizziness, No fever EENTM: no symptoms reported Respiratory: see HPI Cardiovascular: see HPI Gastrointestinal: see HPI, diarrhea, nausea, vomiting Genitourinary: no symptoms reported Musculoskeletal: no symptoms reported Skin: no symptoms reported Psychiatric/Neurological: No Symptoms Reported Hematologic/Lymphatic: Denies Blood Clots Past Hzgbnnb-Mithdg-Yvszww Hx Patient Social History Tobacco Use?: No Use of E-Cig and/or Vaping dev: No Substance use?: No Alcohol Use?: No Seasonal Allergies Seasonal Allergies: No Past Medical History Surgery/Hospitalization HX: APPY, AND PERITONSILAR ABSCESS Surgeries: Yes Appendectomy Respiratory: Yes Asthma Cardiac: Yes Hypertension Neurological: Yes (Epilepsy, cleared 2 yrs ago. Took self off meds) Seizure Disorder Genitourinary: No Gastrointestinal: Yes Gastroesophageal Reflux Musculoskeletal: No Endocrine: No HEENT: No Cancer: No Psychosocial: No Integumentary: No Blood Disorders: No Physical Exam Vital Signs Vital Signs - First Documented 09/11/21 18:23 Temp 37.4 Pulse 100 Resp 15 B/P (MAP) 85/63 (70) Pulse Ox 92 O2 Delivery Room Air Capillary Refill : Height, Weight, BMI Height: '" Weight: lbs. oz. kg; 26.00 BMI Method: General Appearance: Thin HEENT: PERRL/EOMI, Pharynx Normal Neck: Full Range of Motion, Normal Inspection, Non Tender, Supple Respiratory: Chest Non Tender, Lungs Clear, Normal Breath Sounds, No Accessory Muscle Use, No Respiratory Distress Cardiovascular: Regular Rate, Rhythm, Normal Peripheral Pulses Gastrointestinal: Normal Bowel Sounds, No Pulsatile Mass, Non Tender, Soft Rectal: Deferred Extremity: Normal Capillary Refill, Normal Inspection, No Pedal Edema Neurologic/Psychiatric: Alert, Oriented x3, cutter head sharpener II-XII Norm as Tested, Other (flat affect) Skin: Normal Color, Warm/Dry Focused Exam Lactate Level 09/11/21 18:30: Lactic Acid Level 0.78 Lactic Acid Level Laboratory Tests Test 09/11/21 18:30 Lactic Acid Level 0.78 MMOL/L (0.50-2.00) Progress/Results/Core Measures Suspected Sepsis SIRS Temperature: Pulse: Respiratory Rate: Laboratory Tests 09/11/21 18:15: White Blood Count 7.3 Blood Pressure / Mean: 09/11/21 18:30: Lactic Acid Level 0.78 Laboratory Tests 09/11/21 18:15: Creatinine 0.71, INR Comment 1.1, Platelet Count 237, Total Bilirubin 0.7 Results/Orders Lab Results Laboratory Tests Test 09/11/21 18:15 09/11/21 18:30 09/11/21 19:40 Range/Units White Blood Count 7.3 4.3-11.0 10^3/uL Red Blood Count 4.96 4.30-5.52 10^6/uL Hemoglobin 14.6 13.3-17.7 g/dL Hematocrit 42 40-54 % Mean Corpuscular Volume 84 80-99 fL Mean Corpuscular Hemoglobin 29 25-34 pg Mean Corpuscular Hemoglobin Concent 35 32-36 g/dL Red Cell Distribution Width 13.0 10.0-14.5 % Platelet Count 237 130-400 10^3/uL Mean Platelet Volume 8.8 L 9.0-12.2 fL Immature Granulocyte % (Auto) 0 % Neutrophils (%) (Auto) 69 42-75 % Lymphocytes (%) (Auto) 18 12-44 % Monocytes (%) (Auto) 11 0-12 % Eosinophils (%) (Auto) 2 0-10 % Basophils (%) (Auto) 1 0-10 % Neutrophils # (Auto) 5.0 1.8-7.8 10^3/uL Lymphocytes # (Auto) 1.3 1.0-4.0 10^3/uL Monocytes # (Auto) 0.8 0.0-1.0 10^3/uL Eosinophils # (Auto) 0.1 0.0-0.3 10^3/uL Basophils # (Auto) 0.0 0.0-0.1 10^3/uL Immature Granulocyte # (Auto) 0.0 0.0-0.1 10^3/uL Prothrombin Time 14.1 12.2-14.7 SEC INR Comment 1.1 0.8-1.4 Activated Partial Thromboplast Time 30 24-35 SEC Sodium Level 139 135-145 MMOL/L Potassium Level 3.9 3.6-5.0 MMOL/L Chloride Level 106 98-107 MMOL/L Carbon Dioxide Level 22 21-32 MMOL/L Anion Gap 11 5-14 MMOL/L Blood Urea Nitrogen 16 7-18 MG/DL Creatinine 0.71 0.60-1.30 MG/DL Estimat Glomerular Filtration Rate 117 BUN/Creatinine Ratio 23 Glucose Level 102 70-105 MG/DL Calcium Level 8.3 L 8.5-10.1 MG/DL Corrected Calcium 8.5 8.5-10.1 MG/DL Magnesium Level 1.8 1.6-2.4 MG/DL Total Bilirubin 0.7 0.1-1.0 MG/DL Aspartate Amino Transf (AST/SGOT) 16 5-34 U/L Alanine Aminotransferase (ALT/SGPT) 22 0-55 U/L Alkaline Phosphatase 98 40-136 U/L Myoglobin 21.0 10.0-92.0 NG/ML Troponin I < 0.30 <0.30 NG/ML Pro-B-Type Natriuretic Peptide 9.8 <75.0 PG/ML Total Protein 6.4 6.4-8.2 GM/DL Albumin 3.8 3.2-4.5 GM/DL Lipase 9 8-78 U/L Serum Alcohol < 10 <10 MG/DL Lactic Acid Level 0.78 0.50-2.00 MMOL/L Urine Color YELLOW Urine Clarity CLEAR Urine pH 6.0 5-9 Urine Specific [place] 1.025 H 1.016-1.022 Urine Protein NEGATIVE NEGATIVE Urine Glucose (UA) NEGATIVE NEGATIVE Urine Ketones NEGATIVE NEGATIVE Urine Nitrite NEGATIVE NEGATIVE Urine Bilirubin NEGATIVE NEGATIVE Urine Urobilinogen 0.2 < = 1.0 MG/DL Urine Leukocyte Esterase NEGATIVE NEGATIVE Urine RBC (Auto) NEGATIVE NEGATIVE Urine RBC NONE /HPF Urine WBC RARE /HPF Urine Squamous Epithelial Cells RARE /HPF Urine Crystals NONE /LPF Urine Bacteria NEGATIVE /HPF Urine Casts NONE /LPF Urine Mucus MODERATE H /LPF Urine Culture Indicated NO Urine Opiates Screen NEGATIVE NEGATIVE Urine Oxycodone Screen NEGATIVE NEGATIVE Urine Methadone Screen NEGATIVE NEGATIVE Urine Propoxyphene Screen NEGATIVE NEGATIVE Urine Barbiturates Screen NEGATIVE NEGATIVE Ur Tricyclic Antidepressants Screen NEGATIVE NEGATIVE Urine Phencyclidine Screen NEGATIVE NEGATIVE Urine Amphetamines Screen NEGATIVE NEGATIVE Urine Methamphetamines Screen NEGATIVE NEGATIVE Urine Benzodiazepines Screen NEGATIVE NEGATIVE Urine Cocaine Screen NEGATIVE NEGATIVE Urine Cannabinoids Screen NEGATIVE NEGATIVE My Orders Orders - YEFRI VILLALOBOS MD Cbc With Automated Diff (09/11/21 18:20) Magnesium (09/11/21 18:20) Chest 1 View Ap/Pa Only (09/11/21 18:20) Ekg Tracing (09/11/21 18:20) Comprehensive Metabolic Panel (09/11/21 18:20) Myoglobin Serum (09/11/21 18:20) Protime With Inr (09/11/21 18:20) Partial Thromboplastin Time (09/11/21 18:20) O2 (09/11/21 18:20) Monitor-Rhythm Ecg Trace Only (09/11/21 18:20) Ed Iv/Invasive Line Start (09/11/21 18:20) Lipase (09/11/21 18:20) Troponin I Fs (09/11/21 18:20) Probnp Fs (09/11/21 18:20) Ns Iv 1000 Ml (Sodium Chloride 0.9%) (09/11/21 18:20) Blood Culture (09/11/21 18:20) Lactic Acid Analyzer (09/11/21 18:20) Ua Culture If Indicated (09/11/21 18:20) Drug Screen Stat (Urine) (09/11/21 18:20) Alcohol (09/11/21 18:20) Ondansetron Injection (Zofran Injectio (09/11/21 18:34) Pantoprazole Injection (Protonix Injecti (09/11/21 18:34) Ketorolac Injection (Toradol Injection) (09/11/21 18:34) Orthostatic Vital Signs (Adult (09/11/21 19:58) Rx-Ondansetron Po (Rx-Zofran Po) (09/11/21 20:45) Medications Given in ED Current Medications Medications Dose Ordered Sig/Yaima Route Start Time Stop Time Status Last Admin Dose Admin Ondansetron HCl 4 mg Q6H PRN PO 09/11/21 20:45 09/11/21 20:37 DC 09/11/21 20:35 4 MG Vital Signs/I&O 09/11/21 09/11/21 09/11/21 18:23 19:45 20:27 Temp 37.4 Pulse 100 81 Resp 15 19 B/P (MAP) 85/63 (70) 104/68 (80) 105/69 104/69 (81) 95/66 (76) Pulse Ox 92 96 O2 Delivery Room Air Capillary Refill : Progress Note #1: Progress Note Obtain electrocardiogram, blood work, chest x-ray, cardiac enzymes, urine, urine drug screen, alcohol level, lipase. Give IV fluid normal saline 1 L bolus for h ydration. Try Zofran for nausea, Protonix for possible epigastric pain, Toradol for possible musculoskeletal source of his chest pain. Progress Note #2: Progress Note Labs appear stable without acute significant abnormality. His white blood cell count is normal. His lactic acid level is not elevated. His troponin is less than 0.3 after having pain this afternoon. He has stable electrolytes despite having vomiting and diarrhea throughout the day. His chest x-ray does not show any acute abnormality either. His electrocardiogram appears stable from prior tracings in 2020. Patient was having improved symptoms after treatment with IV fluids, Zofran for nausea, Toradol for pain, Protonix for gastritis. Reassured patient about findings and advised the his chest pain may have been more musculoskeletal or irritation to the GI tract. If he continues to have further symptoms or more problems he could follow-up through the clinic or return for worsening symptoms. In the meantime use Zofran to help keep the stomach settled and try to push fluids and hydration. ECG Initial ECG Impression Date: Sep 11, 2021 Initial ECG Impression Time: 18:19 Initial ECG Rate: 103 Initial ECG Rhythm: S.Tach Initial ECG Comparisson: Unchanged Comment Sinus tachycardia with a heart rate of 103 bpm. NV interval 137 ms. There is left ventricular hypertrophy. No acute ST elevation. QT interval 333 ms with a QTc interval 436 ms. Overall appears similar to tracing from 2020 Diagnostic Imaging Diagonstic Imaging: Xray Plain Films/CT/US/NM/MRI: chest Comments [facility] [place] [place], [place] NAME: ROCÍO JOHNSON [facility] REC#: [id number] PT STATUS: REG ER : 1980 PHYSICIAN: YEFRI VILLALOBOS MD ADMIT DATE: 09/11/21/ER FS Signed Date of Exam:09/11/21 CHEST 1 VIEW AP/PA ONLY EXAMINATION: Chest 1 view HISTORY: Chest pain. Cough. COMPARISON: 12/04/2020. FINDINGS: The lung volumes are normal. No focal consolidation is seen. No large pleural effusion or pneumothorax is seen. The cardiomediastinal silhouette is normal in size and contour. No acute osseous abnormality is seen. IMPRESSION: 1. No acute pleuroparenchymal process. Dictated by: Dictated on workstation # [id number] Dict: 09/11/211828 Trans: 09/11/211831 [id number] [id number] Interpreted by: JESSEE BLAIR DO Electronically signed by: JESSEE BLAIR DO 09/11/211831 Reviewed: Reviewed by Me Departure Impression Primary Impression: Chest pain Qualified Codes: R07.9 - Chest pain, unspecified Additional Impression: Nausea vomiting and diarrhea Disposition: 01 HOME, SELF-CARE Condition: Stable Departure-Patient Inst. Decision time for Depature: 20:33 Referrals: XOCHITL LICONA APRN (PCP) Primary Care Physician [facility] (Family) Primary Care Physician Patient Instructions: Chest Pain, Adult ED, Diarrhea, Adult ED, Nausea and Vomiting, Adult ED Add. Discharge Instructions: Your blood work and tests to look at the heart looked okay today. Your symptoms may have been related still to a viral illness causing the nausea, vomiting, diarrhea. Try following a liquid diet for the next 24 hours and then advance to a bland or brat diet as she tolerated. Check back with clinic for continued concerns. If your having worsening symptoms or not improving in the next few days you could be reevaluated. Use the dissolving nausea medication to help settle your stomach so you can stay well-hydrated. All discharge instructions reviewed with patient and/or family. Voiced understa nding. Scripts Ondansetron (Ondansetron Odt) 4 Mg Tab.rapdis 4 MG PO Q6H PRN for NAUSEA/VOMITING for 3 Days, #12 TAB 0 Refills Prov: YEFRI VILLALOBOS MD 09/11/21 Work/School Note: Work Release Form Date Seen in the Emergency Department: Sep 11, 2021 Return to Work: Sep 13, 2021 Restrictions: Return-No Vomiting(24hrs) YEFRI VILLALOBOS MD Sep 11, 2021 18:28
--- NOTE | 2021-09-11 18:31 | Diagnostic Imaging Report ---
EXAMINATION: Chest 1 view HISTORY: Chest pain. Cough. COMPARISON: 12/04/2020. FINDINGS: The lung volumes are normal. No focal consolidation is seen. No large pleural effusion or pneumothorax is seen. The cardiomediastinal silhouette is normal in size and contour. No acute osseous abnormality is seen. IMPRESSION: 1. No acute pleuroparenchymal process. Dictated by: Dictated on workstation # [id number]
[2021-09-11 18:32] LABS: BASOPHILS % (AUTO) 1 % (0-10); EOSINOPHILS # (AUTO) 0.1 10^3/uL (0.0-0.3); EOSINOPHILS % (AUTO) 2 % (0-10); HEMATOCRIT 42 % (40-54); HEMOGLOBIN 14.6 g/dL (13.3-17.7); LYMPHOCYTES # (AUTO) 1.3 10^3/uL (1.0-4.0); LYMPHOCYTES % (AUTO) 18 % (12-44); MEAN CORPUSCULAR HEMOGLOBIN 29 pg (25-34); MEAN CORPUSCULAR HGB CONC 35 g/dL (32-36); MEAN CORPUSCULAR VOLUME 84 fL (80-99); MEAN PLATELET VOLUME 8.8 fL (9.0-12.2); MONOCYTES # (AUTO) 0.8 10^3/uL (0.0-1.0); MONOCYTES % (AUTO) 11 % (0-12); NEUTROPHILS % (AUTO) 69 % (42-75); PLATELET COUNT 237 10^3/uL (130-400); WHITE BLOOD COUNT 7.3 10^3/uL (4.3-11.0)
[2021-09-11] MEDS ORDERED: ONDANSETRON 4 MG/2 ML (SDV) Z0FRAN IVP STA (18:34)
[2021-09-11] MEDS ORDERED: PANTOPRAZOLE 40 MG (PROTONIX) VIAL IV STA (18:34)
[2021-09-11] MEDS ORDERED: KETOROLAC 30 MG/ML VIAL IVP STA (18:34)
[2021-09-11 18:42] LABS: INR 1.1 (0.8-1.4); PROTHROMBIN TIME PATIENT 14.1 SEC (12.2-14.7)
[2021-09-11 19:06] LABS: ALANINE AMINOTRANSFERASE 22 U/L (0-55); ALKALINE PHOSPHATASE 98 U/L (40-136); BILIRUBIN,TOTAL 0.7 MG/DL (0.1-1.0); BUN/CREATININE RATIO 23; CALCIUM 8.3 MG/DL (8.5-10.1); CARBON DIOXIDE 22 MMOL/L (21-32); CHLORIDE 106 MMOL/L (98-107); CREATININE SERUM 0.71 MG/DL (0.60-1.30); GFR ESTIMATED 117; GLUCOSE 102 MG/DL (70-105); MAGNESIUM 1.8 MG/DL (1.6-2.4); POTASSIUM 3.9 MMOL/L (3.6-5.0); SODIUM 139 MMOL/L (135-145)
[2021-09-11 19:07] LABS: ALBUMIN 3.8 GM/DL (3.2-4.5); LIPASE 9 U/L (8-78); TOTAL PROTEIN 6.4 GM/DL (6.4-8.2)
[2021-09-11 19:45] VITALS: BP_SYST 104; BP_SYST 95; BP_DIAS 66; BP_DIAS 68; BP_DIAS 69
[2021-09-11 19:46] VITALS: BP 104/69
[2021-09-11 20:04] LABS: BILIRUBIN,URINE NEGATIVE (NEGATIVE); CLARITY,URINE CLEAR; COLOR,URINE YELLOW; GLUCOSE, URINE (UA) NEGATIVE (NEGATIVE); KETONES,URINE NEGATIVE (NEGATIVE); LEUKOCYTE ESTERASE ,URINE NEGATIVE (NEGATIVE); NITRITE,URINE NEGATIVE (NEGATIVE); PROTEIN,URINE NEGATIVE (NEGATIVE)
[2021-09-11 20:11] LABS: BACTERIA,URINE NEGATIVE /HPF; SQUAMOUS EPITHELIAL CELL,UR RARE /HPF; WBC,URINE RARE /HPF
[2021-09-11 20:14] LABS: AMPHETAMINE SCREEN, URINE NEGATIVE (NEGATIVE); BARBITURATE SCREEN URINE NEGATIVE (NEGATIVE); BENZODIAZEPINES SCREEN URINE NEGATIVE (NEGATIVE); CANNABINOID SCREEN, URINE NEGATIVE (NEGATIVE); COCAINE SCREEN URINE NEGATIVE (NEGATIVE); METHADONE STAT NEGATIVE (NEGATIVE); METHAMPHETAMINE SCREEN URINE S NEGATIVE (NEGATIVE); OPIATE SCREEN URINE NEGATIVE (NEGATIVE); OXYCODONE STAT NEGATIVE (NEGATIVE); PROPOXYPHENE STAT NEGATIVE (NEGATIVE); TRICYCLIC ANTIDEPRESSANTS SCRE NEGATIVE (NEGATIVE)
[2021-09-11 20:27] VITALS: BP 105/69
[2021-09-11] MEDS ORDERED: ONDA4TAB11 PO (20:35)
[2021-09-11] MEDS ORDERED: RX-ONDANSETRON 4 MG ODT (ZOFRAN) PPK #4 PO PRN (20:45)
== END 2021-09-11 20:37 | disposition home or self-care (01) ==
LOC: EDUNIT# 18:06 → ER FS 18:08
DX: R07.9 Chest pain, unspecified (principal); R11.2 Nausea with vomiting, unspecified; R19.7 Diarrhea, unspecified
CPT/HCPCS: 36415; 71045; 80053; 80306; 81000; 83605; 83690; 83735; 83874; 83880; 84484; 85025; 85610; 85730; 87040; 93041; G0480; 80320; 93005

== ENCOUNTER 2021-10-22 18:03 | Emergency (ER) | payer MEDICAID ==
[~2021-10-22] VITALS: Ht 172 cm; Wt 80.0 kg
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
[2021-10-22] MEDS ORDERED: CYCL10TA25 PO (18:47)
[2021-10-22 18:49] VITALS: BP 141/120
== END 2021-10-22 18:51 | disposition home or self-care (01) ==
LOC: EDUNIT# 18:03 → ER FS 18:04
DX: M54.50 Low back pain, unspecified (principal); V43.52XA Car driver injured in collision with other type car in traffic accident, initial encounter; Y92.410 Unspecified street and highway as the place of occurrence of the external cause
CPT/HCPCS: 99281

== ENCOUNTER 2021-10-31 22:47 | Emergency (ER) | payer MEDICAID ==
[~2021-10-31] VITALS: Ht 172.7 cm; Wt 80.0 kg
[~2021-10-31 22:47] MED LIST changes: +CYCL10TA25 PO
[2021-10-31 23:15] LABS: BASOPHILS # (AUTO) 0.1 10^3/uL (0.0-0.1); BASOPHILS % (AUTO) 1 % (0-10); EOSINOPHILS # (AUTO) 0.3 10^3/uL (0.0-0.3); EOSINOPHILS % (AUTO) 4 % (0-10); HEMATOCRIT 41 % (40-54); HEMOGLOBIN 14.4 g/dL (13.3-17.7); LYMPHOCYTES # (AUTO) 2.9 10^3/uL (1.0-4.0); LYMPHOCYTES % (AUTO) 35 % (12-44); MEAN CORPUSCULAR HEMOGLOBIN 30 pg (25-34); MEAN CORPUSCULAR HGB CONC 36 g/dL (32-36); MEAN CORPUSCULAR VOLUME 84 fL (80-99); MEAN PLATELET VOLUME 9.2 fL (9.0-12.2); MONOCYTES # (AUTO) 0.7 10^3/uL (0.0-1.0); MONOCYTES % (AUTO) 8 % (0-12); NEUTROPHILS # (AUTO) 4.2 10^3/uL (1.8-7.8); NEUTROPHILS % (AUTO) 52 % (42-75); PLATELET COUNT 280 10^3/uL (130-400); WHITE BLOOD COUNT 8.2 10^3/uL (4.3-11.0)
[2021-10-31 23:30] LABS: PROTHROMBIN TIME PATIENT 13.4 SEC (12.2-14.7)
[2021-10-31 23:37] LABS: FIBRIN DEGRADATION PRODUCTS 0.29 UG/ML (0.00-0.49)
[2021-10-31 23:40] LABS: CARBON DIOXIDE 25 MMOL/L (21-32); CHLORIDE 103 MMOL/L (98-107); POTASSIUM 3.8 MMOL/L (3.6-5.0); SODIUM 140 MMOL/L (135-145)
[2021-10-31 23:41] LABS: ALANINE AMINOTRANSFERASE 15 U/L (0-55); ALBUMIN 4.3 GM/DL (3.2-4.5); ALKALINE PHOSPHATASE 98 U/L (40-136); BILIRUBIN,TOTAL 0.3 MG/DL (0.1-1.0); BUN/CREATININE RATIO 16; CALCIUM 8.9 MG/DL (8.5-10.1); CREATININE SERUM 1.04 MG/DL (0.60-1.30); GFR ESTIMATED 92; GLUCOSE 119 MG/DL (70-105); TOTAL PROTEIN 6.8 GM/DL (6.4-8.2)
[2021-10-31] MEDS ORDERED: ASPIRIN 81 MG CHEW (CHILDREN'S ASA) PO ONE (23:45)
[2021-10-31] MEDS: NITROGLYCERIN 0.4 MG SL TABS BTL 25'S SL PRN ×2 (23:49→23:56)
--- NOTE | 2021-11-01 00:04 | ED Chest Pain ---
General Chief Complaint: Chest Pain Stated Complaint: CHEST PAIN Nursing Triage Note: Patient presents per POV alone and ambulatory to ED 06 with c/o chest pain since 1800. 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 Pt has not used NTG reporting this is a different lower left chest pain worsening with inspirations. Pt has asthma and reports no exacerbations. Patient awoke [address] went to work but asked to leave for continuation of sx. Source: patient Exam Limitations: no limitations History of Present Illness Date Seen by Provider: October 31, 2021 Time Seen by Provider: 23:00 Initial Comments Patient to the ER by private conveyance with chief complaint that since about 6:00 tonight, 5 hours ago he started experiencing some left side under the breast deep pain on inspiration only. He describes it as sharp. He is not having shortness of air or wheezing like he typically gets with his asthma. He has nitroglycerin to be taken for his chest pain but has not taken it because it does not feel like his chest pains. He denies ever having had a cardiac catheterization. Has had some tick bites on his right leg. He has had a nonproductive cough for the past couple days. No fevers or chills. No nausea vomiting or other rash. He has not had pain like this before. No trauma to his chest wall. No swelling or pain in his calves or arms. He states he used to use cocaine but has been off of that for several years. He tried to go to work but the pain was too great and decided to come to the ER instead. He does have a significant history of GERD but denies a history of hypertension, hyperlipidemia or diabetes. He does not smoke cigarettes. He sees a rock crushing machine operator named Dr. Fuller at [facility] [place]. He has had endoscopy. 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 Allergies and Home Medications Allergies Coded Allergies: codeine (Verified Allergy, Unknown, 01/09/21) prednisone (Verified Allergy, Unknown, 01/09/21) Penicillins (Unverified Adverse Reaction, Unknown, 10/20/19) shellfish derived (Unverified Adverse Reaction, Unknown, 10/20/19) Uncoded Allergies: acetamenophen (Adverse Reaction, Unknown, 10/20/19) Patient Home Medication List Home Medication List Reviewed: Yes Albuterol Sulfate (Ventolin Hfa) 1 Puff Puff, 2 PUFF INH Q4H PRN for WHEEZING Prescribed by: AALIYAH JAMA on 11/09/19 0848 Cephalexin (Cephalexin) 500 Mg Tablet, 500 MG PO TID Prescribed by: CHAVEZ HANNON on 01/09/21 0606 Cyclobenzaprine HCl (Cyclobenzaprine HCl) 10 Mg Tablet, 10 MG PO TID Prescribed by: CHAVEZ HANNON on 10/22/21 1847 Dexamethasone (Decadron) 4 Mg Tablet, 4 MG PO BID Prescribed by: CHAVEZ HANNON on 01/09/21 0606 Diclofenac Sodium (Diclofenac Sodium) 75 Mg Tablet.dr, 75 MG PO BID Prescribed by: HUMAIRA PITTS on 10/20/19 1214 Doxycycline Hyclate (Doxycycline Hyclate) 100 Mg Tablet, 100 MG PO BID Prescribed by: JOANN HENNING on 11/01/21 0018 Famotidine (Pepcid) 20 Mg Tablet, 20 MG PO BID Prescribed by: CHAVEZ HANNON on 08/15/20 0048 Hydrocodone/Acetaminophen (Hydrocodone-Acetamin 5-325 mg) 5 Mg-325 Mg Tablet, 1 TAB PO Q6H PRN for PAIN-MODERATE (5-7) Prescribed by: JOANN HENNING on 11/01/21 0019 Hydroxyzine HCl (Hydroxyzine HCl) 25 Mg Tablet, 50 MG PO Q8H Prescribed by: CHAVEZ HANNON on 01/09/21 0606 Naproxen (Naprosyn) 500 Mg Tablet, 500 MG PO BID Prescribed by: JOANN HENNING on 11/01/21 0105 Nitroglycerin (Nitroglycerin) 0.4 Mg Tab.subl, 0.4 MG SL UD PRN for CHEST PAIN Prescribed by: MARIA GUADALUPE FLORES on 10/31/20 1106 Omeprazole (Omeprazole) 40 Mg Capsule.dr, 40 MG PO Q12H Prescribed by: CHAVEZ HANNON on 08/15/20 0048 Ondansetron (Ondansetron Odt) 4 Mg Tab.rapdis, 4 MG PO TID Prescribed by: MARIA GUADALUPE FLORES on 12/12/20 0739 Ondansetron (Ondansetron Odt) 4 Mg Tab.rapdis, 4 MG PO Q6H PRN for NAUSEA/VOMITING Prescribed by: YEFRI VILLALOBOS on 09/11/21 203 Sucralfate (Sucralfate) 1 Gm Tablet, 1 GM PO ACHS Prescribed by: CHAVEZ HANNON on 08/15/20 0048 Review of Systems Review of Systems Constitutional: No chills, No diaphoresis, No malaise EENTM: No Blurred Vision, No Double Vision Respiratory: Cough; Denies Shortness of Air, Denies Wheezing Cardiovascular: See HPI, Chest Pain; Denies Lightheadedness Gastrointestinal: Denies Abdominal Pain, Denies Constipated, Denies Diarrhea, Denies Nausea Genitourinary: Denies Burning, Denies Discharge Musculoskeletal: No back pain, No joint pain All Other Systems Reviewed Negative Unless Noted: Yes Past Afmmgvo-Ugaekv-Hdkxvp Hx Patient Social History Tobacco Use?: No Use of E-Cig and/or Vaping dev: No Substance use?: No Seasonal Allergies Seasonal Allergies: No Past Medical History Surgery/Hospitalization HX: APPY, AND PERITONSILAR ABSCESS Surgeries: Yes Appendectomy Respiratory: Yes Asthma Cardiac: Yes Hypertension Neurological: Yes (Epilepsy, cleared 2 yrs ago. Took self off meds) Seizure Disorder Genitourinary: No Gastrointestinal: Yes Gastroesophageal Reflux Musculoskeletal: No Endocrine: No HEENT: No Cancer: No Psychosocial: No Integumentary: No Blood Disorders: No Physical Exam Vital Signs Vital Signs - First Documented 10/31/21 22:47 Temp 36.8 Pulse 82 Resp 20 B/P (MAP) 134/81 (98) Pulse Ox 97 O2 Delivery Room Air Capillary Refill : Less Than 3 Seconds Height, Weight, BMI Height: '" Weight: lbs. oz. kg; 26.00 BMI Method: General Appearance: WD/WN, Mild Distress HEENT: PERRL/EOMI, Pharynx Normal, Moist Mucous Membranes Neck: Full Range of Motion, Normal Inspection Respiratory: Chest Non Tender, Lungs Clear, Normal Breath Sounds, No Accessory Muscle Use, No Respiratory Distress Cardiovascular: Regular Rate, Rhythm, No Edema, Normal Peripheral Pulses Gastrointestinal: Normal Bowel Sounds, Non Tender, Soft Extremity: Normal Range of Motion, Non Tender, No Pedal Edema Neurologic/Psychiatric: Alert, Oriented x3, No Motor/Sensory Deficits, Normal Mood/Affect Skin: Normal Color, Warm/Dry, Rash (Erythematous arthropod bites up and down the right thigh laterally. No bull's-eye rash.) Progress/Results/Core Measures Results/Orders Lab Results Laboratory Tests Test 10/31/21 23:00 11/01/21 00:15 11/01/21 00:25 Range/Units White Blood Count 8.2 4.3-11.0 10^3/uL Red Blood Count 4.84 4.30-5.52 10^6/uL Hemoglobin 14.4 13.3-17.7 g/dL Hematocrit 41 40-54 % Mean Corpuscular Volume 84 80-99 fL Mean Corpuscular Hemoglobin 30 25-34 pg Mean Corpuscular Hemoglobin Concent 36 32-36 g/dL Red Cell Distribution Width 13.1 10.0-14.5 % Platelet Count 280 130-400 10^3/uL Mean Platelet Volume 9.2 9.0-12.2 fL Immature Granulocyte % (Auto) 0 % Neutrophils (%) (Auto) 52 42-75 % Lymphocytes (%) (Auto) 35 12-44 % Monocytes (%) (Auto) 8 0-12 % Eosinophils (%) (Auto) 4 0-10 % Basophils (%) (Auto) 1 0-10 % Neutrophils # (Auto) 4.2 1.8-7.8 10^3/uL Lymphocytes # (Auto) 2.9 1.0-4.0 10^3/uL Monocytes # (Auto) 0.7 0.0-1.0 10^3/uL Eosinophils # (Auto) 0.3 0.0-0.3 10^3/uL Basophils # (Auto) 0.1 0.0-0.1 10^3/uL Immature Granulocyte # (Auto) 0.0 0.0-0.1 10^3/uL Prothrombin Time 13.4 12.2-14.7 SEC INR Comment 1.0 0.8-1.4 Activated Partial Thromboplast Time 29 24-35 SEC D-Dimer 0.29 0.00-0.49 UG/ML Sodium Level 140 135-145 MMOL/L Potassium Level 3.8 3.6-5.0 MMOL/L Chloride Level 103 98-107 MMOL/L Carbon Dioxide Level 25 21-32 MMOL/L Anion Gap 12 5-14 MMOL/L Blood Urea Nitrogen 17 7-18 MG/DL Creatinine 1.04 0.60-1.30 MG/DL Estimat Glomerular Filtration Rate 92 BUN/Creatinine Ratio 16 Glucose Level 119 H 70-105 MG/DL Calcium Level 8.9 8.5-10.1 MG/DL Corrected Calcium 8.7 8.5-10.1 MG/DL Magnesium Level 2.0 1.6-2.4 MG/DL Total Bilirubin 0.3 0.1-1.0 MG/DL Aspartate Amino Transf (AST/SGOT) 15 5-34 U/L Alanine Aminotransferase (ALT/SGPT) 15 0-55 U/L Alkaline Phosphatase 98 40-136 U/L Myoglobin 23.7 10.0-92.0 NG/ML Troponin I < 0.30 < 0.30 <0.30 NG/ML C-Reactive Protein < 0.30 <0.50 MG/DL Total Protein 6.8 6.4-8.2 GM/DL Albumin 4.3 3.2-4.5 GM/DL My Orders Orders - JOANN HENNING Continuous Ekg Monitoring (10/31/21 22:53) Ekg Tracing (10/31/21 22:53) Cbc With Automated Diff (10/31/21 23:09) Comprehensive Metabolic Panel (10/31/21 23:09) Crp Fs (10/31/21 23:09) Troponin I Fs (10/31/21 23:09) Protime With Inr (10/31/21 23:09) Fibrin Degradation Products (10/31/21 23:09) Magnesium (10/31/21 23:09) Chest 1 View Ap/Pa Only (10/31/21 23:09) Myoglobin Serum (10/31/21 23:09) Partial Thromboplastin Time (10/31/21 23:09) O2 (10/31/21 23:09) Lipid Panel (11/01/21 06:00) Ed Iv/Invasive Line Start (10/31/21 23:09) Aspirin Chewable Tablet (Baby Aspirin Ch (10/31/21 23:45) Nitroglycerin 0.4 Mg Btl 25's (Nitrostat (10/31/21 23:45) Ketorolac Injection (Toradol Injection) (11/01/21 00:15) Tick Panel With Lyme Eia (11/01/21 00:19) Troponin I Fs (11/01/21 00:20) Medications Given in ED Current Medications Medications Dose Ordered Sig/Yaima Route Start Time Stop Time Status Last Admin Dose Admin Aspirin 324 mg ONCE ONCE PO 10/31/21 23:45 10/31/21 23:46 DC 10/31/21 23:48 324 MG Ketorolac Tromethamine 30 mg ONCE ONCE IVP 11/01/21 00:15 11/01/21 00:16 DC 11/01/21 00:14 30 MG Nitroglycerin 0.4 mg NEEDED PRN SL 10/31/21 23:45 11/01/21 01:07 DC 10/31/21 23:56 0.4 MG Vital Signs/I&O 10/31/21 11/01/21 11/01/21 22:47 00:14 01:05 Temp 36.8 36.8 36.5 Pulse 82 70 Resp 20 22 B/P (MAP) 134/81 (98) 118/76 Pulse Ox 97 96 O2 Delivery Room Air Room Air Blood Pressure Mean: 98 Progress Progress Note #1: Time: 00:02 Progress Note Differential includes things like pleurisy, pneumonia, chest wall pain. Pulmonary embolism is less likely given his negative D-dimer. Initial troponin 5 hours after start of pain is undetectable and his EKG is unremarkable. We we will trial a nitroglycerin and if that does not work we can try something different for pleuritic type pain. No previous cardiac work-up seen in the record. Progress Note #2: Time: 00:13 Progress Note As the patient was lying there and taken the nitroglycerin he felt like his pain was getting better and going away. As soon as you take a big deep breath it tri ggers a cough and his pain came right back however. Delta Troponin and Toradol 30 mg IV. Pleurisy most likely. Will provide some pain meds and expectations counseling. We will do a tick panel and put him on doxycycline for his multiple tick bites. Progress Note #3: Time: 01:04 Progress Note Delta troponin is negative. Patient rates pain as a 1 out of 10. We are going to send him home with some naproxen and hydrocodone for breakthrough. Initial ECG Impression Date: November 01, 2021 Initial ECG Impression Time: 22:53 Initial ECG Rate: 82 Initial ECG Rhythm: Normal Sinus Initial ECG Intervals: Normal Initial ECG Impression: Normal Initial ECG Comparisson: Unchanged Comment Normal sinus rhythm without clinically relevant ST elevation or depression. Diagnostic Imaging Diagonstic Imaging: Xray Plain Films/CT/US/NM/MRI: chest Comments No acute cardiopulmonary process on 1 view chest x-ray. Unchanged since August, 2 months ago. [facility] [place] [place] NAME: ROCÍO JOHNSON [facility] REC#: [id number] PT STATUS: DEP ER : 1980 PHYSICIAN: JOANN HENNING MD ADMIT DATE: 10/31/21/ER FS Signed Date of Exam:10/31/21 CHEST 1 VIEW AP/PA ONLY Indication: Left-sided chest pain Portable chest 11:14 PM Heart size and pulmonary vascularity are normal. Lungs are clear. There are no effusions or pneumothoraces. IMPRESSION: No acute abnormalities in the chest Dictated by: Dictated on workstation # [id number] Dict: 11/01/218 Trans: 11/01/21437 TCB [id number] Interpreted by: SCOT FOWLER MD Electronically signed by: SCOT FOWLER MD 11/01/21437 Reviewed: Reviewed by Me Departure Impression Primary Impression: Pleuritic chest pain Additional Impression: Tick bite of hip Qualified Codes: S70.261A - Insect bite (nonvenomous), right hip, initial encounter; W57.XXXA - Bitten or stung by nonvenomous insect and other nonvenomous arthropods, initial encounter Disposition: 01 HOME, SELF-CARE Condition: Stable Departure-Patient Inst. Decision time for Depature: 01:04 Referrals: XOCHITL LICONA APRN (PCP) Primary Care Physician [facility]HAEL (Family) Primary Care Physician Patient Instructions: Pleuritic Chest Pain (DC) Add. Discharge Instructions: Drink plenty of fluids. Use vapor rub such as Vicks or Mentholatum. Tylenol 1000 mg every 8 hours as needed for pain. Naproxen 500 mg twice a day as needed for pain. Hydrocodone 1 tablet every 6 hours as needed for severe breakthrough pain caused by coughing. Doxycycline 1 capsule twice a day for 14 days. This is an antibiotic to treat for the possibility of a tickborne infection. The results of the tick panel will be back in the next 1 to 2 weeks and we will call you if anything is positive. All discharge instructions reviewed with patient and/or family. Voiced understanding. Scripts Naproxen (Naprosyn) 500 Mg Tablet 500 MG PO BID, #30 TAB 0 Refills Prov: JOANN HENNING 11/01/21 Doxycycline Hyclate (Doxycycline Hyclate) 100 Mg Tablet 100 MG PO BID for 14 Days, #28 TAB 0 Refills Prov: JOANN HENNING 11/01/21 Hydrocodone/Acetaminophen (Hydrocodone-Acetamin 5-325 mg) 5 Mg-325 Mg Tablet 1 TAB PO Q6H PRN for PAIN-MODERATE (5-7), #10 TAB 0 Refills Prov: JOANN HENNING 11/01/21 Work/School Note: Work Release Form Date Seen in the Emergency Department: October 31, 2021 Return to Work: November 01, 2021 Restrictions: No Restrictions JOANN HENNING November 01, 2021 00:04
[2021-11-01] MEDS ORDERED: KETOROLAC 30 MG/ML VIAL IVP ONE (00:15)
[2021-11-01] MEDS ORDERED: ACHD5005 PO (00:18)
[2021-11-01] MEDS ORDERED: DOXY100T2 PO (00:18)
[2021-11-01 01:05] VITALS: BP 118/76
[2021-11-01] MEDS ORDERED: NAPR-1071 PO (01:05)
--- NOTE | 2021-11-01 04:40 | Diagnostic Imaging Report ---
Indication: Left-sided chest pain Portable chest 11:14 PM Heart size and pulmonary vascularity are normal. Lungs are clear. There are no effusions or pneumothoraces. IMPRESSION: No acute abnormalities in the chest Dictated by: Dictated on workstation # [id number]
[2021-11-01] MEDS ORDERED: OXYC5TAB PO (10:45)
[2021-11-01 15:10] LABS: CHOLESTEROL 176 MG/DL (< 200); HDL CHOLESTEROL 25 MG/DL (40-60); TRIGLYCERIDES 218 MG/DL (<150); VLDL CHOLESTEROL 44 MG/DL (5-40)
== END 2021-11-01 01:05 | disposition home or self-care (01) ==
LOC: EDUNIT# 22:47 → ER FS 22:48
DX: S70.261A Insect bite (nonvenomous), right hip, initial encounter (principal); R07.81 Pleurodynia; W57.XXXA Bitten or stung by nonvenomous insect and other nonvenomous arthropods, initial encounter
CPT/HCPCS: 36415; 71045; 80053; 80061; 83735; 83874; 84484; 85025; 85379; 85610; 85730; 86141; 86618; 86666; 86668; 86757; 93005

== ENCOUNTER 2021-11-29 03:44 | Emergency (ER) | payer OTHER ==
[~2021-11-29] VITALS: Ht 172.7 cm; Wt 79.5 kg
[~2021-11-29 03:44] MED LIST changes: +ACHD5005 PO; +DOXY100T2 PO; +NAPR-1071 PO; +OXYC5TAB PO
[2021-11-29] MEDS ORDERED: ONDANSETRON 4 MG/2 ML (SDV) Z0FRAN IVP ONE (04:00)
[2021-11-29] MEDS ORDERED: NS IV 1000 ML 1,000 ML IV SCH (04:00)
[2021-11-29 04:01] LABS: BASOPHILS # (AUTO) 0.1 10^3/uL (0.0-0.1); BASOPHILS % (AUTO) 1 % (0-10); EOSINOPHILS # (AUTO) 0.2 10^3/uL (0.0-0.3); EOSINOPHILS % (AUTO) 2 % (0-10); HEMATOCRIT 42 % (40-54); HEMOGLOBIN 14.7 g/dL (13.3-17.7); LYMPHOCYTES # (AUTO) 3.8 10^3/uL (1.0-4.0); LYMPHOCYTES % (AUTO) 46 % (12-44); MEAN CORPUSCULAR HEMOGLOBIN 29 pg (25-34); MEAN CORPUSCULAR HGB CONC 35 g/dL (32-36); MEAN CORPUSCULAR VOLUME 83 fL (80-99); MONOCYTES # (AUTO) 0.7 10^3/uL (0.0-1.0); MONOCYTES % (AUTO) 8 % (0-12); NEUTROPHILS # (AUTO) 3.5 10^3/uL (1.8-7.8); NEUTROPHILS % (AUTO) 43 % (42-75); PLATELET COUNT 277 10^3/uL (130-400); WHITE BLOOD COUNT 8.3 10^3/uL (4.3-11.0)
--- NOTE | 2021-11-29 04:04 | ED Syncope ---
General Chief Complaint: Dizziness/Syncope Stated Complaint: HEAT STROKE Nursing Triage Note: Pt c/o feeling lightheaded while work at work in hot environment tonight. Denies CP, SOA, n/v/d, or numbness/tingling to extremities. 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 Patient had been working for several hours with temperatures next to [employer] greater than 200 degrees who presents with nausea, dizziness and near syncope. Symptoms began approximately 2 hours prior to ED arrival and gradually progressed. Patient denies headache, palpitations, chest pain, shortness of breath, or extremity cramping. He describes dizziness as room spinning. No prior history is of vertigo. No other acute symptoms or complaints. Arrives by EMS. An IV is established and 1 L of normal saline is running. Timing/Prior Episodes: No Prior History Symptoms Prior to Episode: Lightheadedness, Other Precipitating Factors: Other Loss of Consciousness: No Loss of Consciousness Current Symptoms: Other Allergies and Home Medications Allergies Coded Allergies: codeine (Verified Allergy, Unknown, 01/09/21) prednisone (Verified Allergy, Unknown, 01/09/21) Penicillins (Unverified Adverse Reaction, Unknown, 10/20/19) shellfish derived (Unverified Adverse Reaction, Unknown, 10/20/19) Uncoded Allergies: acetamenophen (Adverse Reaction, Unknown, 10/20/19) Patient Home Medication List Home Medication List Reviewed: Yes Albuterol Sulfate (Ventolin Hfa) 1 Puff Puff, 2 PUFF INH Q4H PRN for WHEEZING Prescribed by: AALIYAH JAMA on 11/09/19 0848 Cephalexin (Cephalexin) 500 Mg Tablet, 500 MG PO TID Prescribed by: CHAVEZ HANNON on 01/09/21 0606 Cyclobenzaprine HCl (Cyclobenzaprine HCl) 10 Mg Tablet, 10 MG PO TID Prescribed by: CHAVEZ HANNON on 10/22/21 1847 Dexamethasone (Decadron) 4 Mg Tablet, 4 MG PO BID Prescribed by: CHAVEZ HANONN on 01/09/21 0606 Diclofenac Sodium (Diclofenac Sodium) 75 Mg Tablet.dr, 75 MG PO BID Prescribed by: HUMAIRA PITTS on 10/20/19 1214 Doxycycline Hyclate (Doxycycline Hyclate) 100 Mg Tablet, 100 MG PO BID Prescribed by: JOANN HENNING on 11/01/21 0018 Famotidine (Pepcid) 20 Mg Tablet, 20 MG PO BID Prescribed by: CHAVEZ HANNON on 08/15/20 004 Hydrocodone/Acetaminophen (Hydrocodone-Acetamin 5-325 mg) 5 Mg-325 Mg Tablet, 1 TAB PO Q6H PRN for PAIN-MODERATE (5-7) Prescribed by: JOANN HENNING on 11/01/21 001 Hydroxyzine HCl (Hydroxyzine HCl) 25 Mg Tablet, 50 MG PO Q8H Prescribed by: CHAVEZ HANNON on 01/09/21 0606 Naproxen (Naprosyn) 500 Mg Tablet, 500 MG PO BID Prescribed by: JOANN HENNING on 11/01/21 010 Nitroglycerin (Nitroglycerin) 0.4 Mg Tab.subl, 0.4 MG SL UD PRN for CHEST PAIN Prescribed by: MARIA GUADALUPE FLORES on 10/31/20 1106 Omeprazole (Omeprazole) 40 Mg Capsule.dr, 40 MG PO Q12H Prescribed by: CHAVEZ HANNON on 08/15/2047 Ondansetron (Ondansetron Odt) 4 Mg Tab.rapdis, 4 MG PO TID Prescribed by: MARIA GUADALUPE FLORES on 12/12/20 0739 Ondansetron (Ondansetron Odt) 4 Mg Tab.rapdis, 4 MG PO Q6H PRN for NAUSEA/VOMITING Prescribed by: YEFRI VILLALOBOS on 09/11/212034 Oxycodone HCl (Oxycodone HCl) 5 Mg Tablet, 5 MG PO Q6H PRN for PAIN-MODERATE (5- 7) Prescribed by: DOMINGUEZ MELISSA on 11/01/21 1046 Sucralfate (Sucralfate) 1 Gm Tablet, 1 GM PO ACHS Prescribed by: CHAVEZ HANNON on 08/15/2047 Review of Systems Constitutional: see HPI EENTM: see HPI Respiratory: see HPI Cardiovascular: see HPI Gastrointestinal: see HPI Genitourinary: see HPI Musculoskeletal: see HPI Skin: see HPI Psychiatric/Neurological: See HPI All Other Systems Reviewed Negative Unless Noted: Yes Past Goblyyd-[place]-Xazdqv Hx Patient Social History Tobacco Use?: No Use of E-Cig and/or Vaping dev: No Substance use?: No Alcohol Use?: No Immunizations Up To Date Influenza Vaccine Up-to-Date: No; Not Current First/Initial COVID19 Vaccinat: denies Seasonal Allergies Seasonal Allergies: No Past Medical History Surgery/Hospitalization HX: APPY, PERITONSILAR ABSCESS, 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 Took self off meds) Seizure Disorder Genitourinary: No Gastrointestinal: Yes Gastroesophageal Reflux Musculoskeletal: No Endocrine: No HEENT: No Cancer: No Psychosocial: No Integumentary: No Blood Disorders: No Physical Exam Vital Signs Vital Signs - First Documented 11/29/21 03:45 Temp 36.6 Pulse 70 Resp 17 B/P (MAP) 125/71 (89) Pulse Ox 99 O2 Delivery Room Air Capillary Refill : Less Than 3 Seconds Height, Weight, BMI Height: '" Weight: lbs. oz. kg; 26.00 BMI Method: General Appearance: No Apparent Distress, WD/WN HEENT: PERRL/EOMI, Normal ENT Inspection, Pharynx Normal, Moist Mucous Membranes Neck: Full Range of Motion, Non Tender, Supple Cardiovascular: Regular Rate, Rhythm, No Edema Respiratory: Chest Non Tender, Lungs Clear Gastrointestinal: Non Tender, Soft Back: Normal Inspection Extremities: Non Tender, No Calf Tenderness Neurologic/Psychiatric: Alert, Oriented x3 Cranial Nerves: PERRL, Other (No nystagmus) Motor/Sensory: No Motor Deficit, No Sensory Deficit Focused Exam Sepsis Stage: Ruled Out Progress/Results/Core Measures Results/Orders Lab Results Laboratory Tests Test 11/29/21 03:48 Range/Units White Blood Count 8.3 4.3-11.0 10^3/uL Red Blood Count 5.02 4.30-5.52 10^6/uL Hemoglobin 14.7 13.3-17.7 g/dL Hematocrit 42 40-54 % Mean Corpuscular Volume 83 80-99 fL Mean Corpuscular Hemoglobin 29 25-34 pg Mean Corpuscular Hemoglobin Concent 35 32-36 g/dL Red Cell Distribution Width 12.7 10.0-14.5 % Platelet Count 277 130-400 10^3/uL Mean Platelet Volume 9.0 9.0-12.2 fL Immature Granulocyte % (Auto) 0 % Neutrophils (%) (Auto) 43 42-75 % Lymphocytes (%) (Auto) 46 H 12-44 % Monocytes (%) (Auto) 8 0-12 % Eosinophils (%) (Auto) 2 0-10 % Basophils (%) (Auto) 1 0-10 % Neutrophils # (Auto) 3.5 1.8-7.8 10^3/uL Lymphocytes # (Auto) 3.8 1.0-4.0 10^3/uL Monocytes # (Auto) 0.7 0.0-1.0 10^3/uL Eosinophils # (Auto) 0.2 0.0-0.3 10^3/uL Basophils # (Auto) 0.1 0.0-0.1 10^3/uL Immature Granulocyte # (Auto) 0.0 0.0-0.1 10^3/uL My Orders Orders - CHAVEZ HANNON DO Cbc With Automated Diff (11/29/21 03:55) Comprehensive Metabolic Panel (11/29/21 03:55) Troponin I Fs (11/29/21 03:55) Ekg Tracing (11/29/21 03:55) Ondansetron Injection (Zofran Injectio (11/29/21 04:00) Ns Iv 1000 Ml (Sodium Chloride 0.9%) (11/29/21 04:00) Medications Given in ED Current Medications Medications Dose Ordered Sig/Yaima Route Start Time Stop Time Status Last Admin Dose Admin Ondansetron HCl 4 mg ONCE ONCE IVP 11/29/21 04:00 11/29/21 04:02 DC 11/29/21 04:02 4 MG Vital Signs/I&O 11/29/21 03:45 Temp 36.6 Pulse 70 Resp 17 B/P (MAP) 125/71 (89) Pulse Ox 99 O2 Delivery Room Air Blood Pressure Mean: 89 Departure Communication (Admissions) Family Conversation EKG: Sinus bradycardia, rate 56, LVH voltage criteria met, no acute ST-T wave changes. 2 L of IV fluids given in ED. Patient nausea improved. He is able to tolerate oral fluids and no longer feels dizzy. Lab work reviewed and reassuring. Will discharge home with instructions to follow-up with work comp provider with regard to instructions when to return to work. All questions answered to the patient's satisfaction prior to discharge. Impression Primary Impression: Near syncope Disposition: 01 HOME, SELF-CARE Condition: Stable Departure-Patient Inst. Decision time for Depature: 04:21 Referrals: XOCHITL LICONA APRN (PCP) Primary Care Physician [facility] [place] (Family) Primary Care Physician Add. Discharge Instructions: You were evaluated in the emergency department for dizziness and nausea likely related to prolonged heat exposure. Please go home and rest, increase fluids and avoid excessive heat for the next 24 hours. Follow-up with your work comp provider later today for further recommendations when to return to work. Return to the ED if new or worsening symptoms All discharge instructions reviewed with patient and/or family. Voiced understanding. CHAVEZ HANNON DO Nov 29, 2021 04:04
[2021-11-29 04:24] LABS: ALANINE AMINOTRANSFERASE 12 U/L (0-55); ALKALINE PHOSPHATASE 94 U/L (40-136); BILIRUBIN,TOTAL 0.4 MG/DL (0.1-1.0); BUN/CREATININE RATIO 19; CALCIUM 8.7 MG/DL (8.5-10.1); CARBON DIOXIDE 22 MMOL/L (21-32); CHLORIDE 106 MMOL/L (98-107); CREATININE SERUM 0.74 MG/DL (0.60-1.30); GFR ESTIMATED 116; GLUCOSE 104 MG/DL (70-105); POTASSIUM 3.9 MMOL/L (3.6-5.0); SODIUM 138 MMOL/L (135-145)
[2021-11-29 04:25] LABS: ALBUMIN 4.2 GM/DL (3.2-4.5); TOTAL PROTEIN 6.9 GM/DL (6.4-8.2)
[2021-11-29 04:30] VITALS: BP 136/68
== END 2021-11-29 04:30 | disposition home or self-care (01) ==
LOC: EDUNIT# 03:44 → ER FS 03:51
DX: R55 Syncope and collapse (principal); R00.1 Bradycardia, unspecified
CPT/HCPCS: 36415; 80053; 84484; 85025; 93005

== ENCOUNTER 2021-12-21 06:41 | Emergency (ER) | payer MEDICAID, OTHER ==
[~2021-12-21] VITALS: Ht 182.8 cm; Wt 79.5 kg
--- NOTE | 2021-12-21 07:12 | ED Lower Extremity ---
General Chief Complaint: Lower Extremity Stated Complaint: L KNEE INJ Nursing Triage Note: Patient presents to the ED with c/o left knee and lower leg pain. States that he slipped and fell hitting his right knee on a rock. Injury occured 6 days ago. States that since then has had swelling, burning, and instability in left knee. Source: patient Exam Limitations: no limitations History of Present Illness Date Seen by Provider: Dec 21, 2021 Time Seen by Provider: 07:05 Initial Comments Patient is a 41-year-old male who presents with persistent left knee pain after slipping and cutting his left anterior knee on rocks while fishing 5 days ago. Patient with a 5 cm healing deep soft tissue abrasion over anterior tibia with light erythema and minimal skin swelling surrounding the wound. There is no streaking, induration drainage or streaking. There is no joint effusion, warmth bruising or swelling. There is no joint laxity. Onset: last week Pain/Injury Location: left leg Method of Injury: other Modifying Factors: Improves With Other Allergies and Home Medications Allergies Coded Allergies: codeine (Verified Allergy, Unknown, 01/09/21) prednisone (Verified Allergy, Unknown, 01/09/21) Penicillins (Unverified Adverse Reaction, Unknown, 10/20/19) shellfish derived (Unverified Adverse Reaction, Unknown, 10/20/19) Uncoded Allergies: acetamenophen (Adverse Reaction, Unknown, 10/20/19) Patient Home Medication List Home Medication List Reviewed: Yes Albuterol Sulfate (Ventolin Hfa) 1 Puff Puff, 2 PUFF INH Q4H PRN for WHEEZING Prescribed by: AALIYAH JAMA on 11/09/19 0848 Cephalexin (Cephalexin) 500 Mg Tablet, 500 MG PO TID Prescribed by: CHAVEZ HANNON on 01/09/21 0606 Cyclobenzaprine HCl (Cyclobenzaprine HCl) 10 Mg Tablet, 10 MG PO TID Prescribed by: CHAVEZ HANNON on 10/22/21 1847 Dexamethasone (Decadron) 4 Mg Tablet, 4 MG PO BID Prescribed by: CHAVEZ HANNON on 01/09/21 0606 Diclofenac Sodium (Diclofenac Sodium) 75 Mg Tablet.dr, 75 MG PO BID Prescribed by: HUMAIRA PITTS on 10/20/19 1214 Doxycycline Hyclate (Doxycycline Hyclate) 100 Mg Tablet, 100 MG PO BID Prescribed by: JOANN HENNING on 11/01/21 0018 Famotidine (Pepcid) 20 Mg Tablet, 20 MG PO BID Prescribed by: CHAVEZ HANNON on 08/15/20 004 Hydrocodone/Acetaminophen (Hydrocodone-Acetamin 5-325 mg) 5 Mg-325 Mg Tablet, 1 TAB PO Q6H PRN for PAIN-MODERATE (5-7) Prescribed by: JOANN HENNING on 11/01/21 0019 Hydroxyzine HCl (Hydroxyzine HCl) 25 Mg Tablet, 50 MG PO Q8H Prescribed by: CHAVEZ HANNON on 01/09/21 0606 Naproxen (Naprosyn) 500 Mg Tablet, 500 MG PO BID Prescribed by: JOANN HENNING on 11/01/21 0105 Nitroglycerin (Nitroglycerin) 0.4 Mg Tab.subl, 0.4 MG SL UD PRN for CHEST PAIN Prescribed by: MARIA GUADALUPE FLORES on 10/31/20 1106 Omeprazole (Omeprazole) 40 Mg Capsule.dr, 40 MG PO Q12H Prescribed by: CHAVEZ HANNON on 08/15/2047 Ondansetron (Ondansetron Odt) 4 Mg Tab.rapdis, 4 MG PO TID Prescribed by: MARIA GUADALUPE JOSHISTARGELIA on 12/12/20 0739 Ondansetron (Ondansetron Odt) 4 Mg Tab.rapdis, 4 MG PO Q6H PRN for NAUSEA/VOMITING Prescribed by: YEFRI VILLALOBOS on 09/11/212034 Oxycodone HCl (Oxycodone HCl) 5 Mg Tablet, 5 MG PO Q6H PRN for PAIN-MODERATE (5- 7) Prescribed by: DOMINGUEZ MELISSA on 11/01/21 1046 Sucralfate (Sucralfate) 1 Gm Tablet, 1 GM PO ACHS Prescribed by: CHAVEZ HANNON on 08/15/2047 Review of Systems Constitutional: see HPI Musculoskeletal: see HPI Skin: see HPI Past Lfcdvsq-Buuwev-Gniuoq Hx Patient Social History Tobacco Use?: No Substance use?: No Alcohol Use?: No Pt feels they are or have been: No Immunizations Up To Date First/Initial COVID19 Vaccinat: denies Second COVID19 Vaccination Brandon: denies Third COVID19 Vaccination Date: denies Seasonal Allergies Seasonal Allergies: No Past Medical History Surgery/Hospitalization HX: APPY, PERITONSILAR ABSCESS, CP UNDER WORK UP W/ CARDIAC EXERCISE PHYSIOLOGIST IN [place], GERD, Depression Surgeries: Yes Appendectomy Respiratory: Yes Asthma Cardiac: Yes Hypertension Neurological: Yes (Epilepsy, cleared 2 yrs ago. Took self off meds) Seizure Disorder Genitourinary: No Gastrointestinal: Yes Gastroesophageal Reflux Musculoskeletal: No Endocrine: No HEENT: No Cancer: No Psychosocial: No Integumentary: No Blood Disorders: No Physical Exam Vital Signs Vital Signs - First Documented 12/21/21 06:49 Temp 36.6 Pulse 96 Resp 18 B/P (MAP) 127/87 (100) Pulse Ox 97 O2 Delivery Room Air Capillary Refill : Less Than 3 Seconds Height, Weight, BMI Height: '" Weight: lbs. oz. kg; 23.00 BMI Method: General Appearance: WD/WN, no apparent distress Legs: left leg abrasions (Left anterior tibia), left leg pain, left leg swe lling Progress/Results/Core Measures Results/Orders Vital Signs/I&O 12/21/21 06:49 Temp 36.6 Pulse 96 Resp 18 B/P (MAP) 127/87 (100) Pulse Ox 97 O2 Delivery Room Air Blood Pressure Mean: 100 Departure Communication (Admissions) Left knee abrasion with early cellulitis without abscess or joint involvement. Recommendations are: Topical antibiotics with watchful waiting and PCP follow-u p. Return precautions reviewed. Patient verbalizes understanding agreement discharge instructions prior to departure. Impression Primary Impression: Infected abrasion of left knee Disposition: 01 HOME, SELF-CARE Condition: Stable Departure-Patient Inst. Decision time for Depature: 07:26 Referrals: XOCHITL LICONA APRN (PCP) Primary Care Physician [facility] (Family) Primary Care Physician Patient Instructions: Wound Infection Add. Discharge Instructions: Please keep abrasion clean, dry and covered. Apply topical antibiotics as directed and complete full course of oral antibiotics. Take ibuprofen as needed for pain and swelling. Follow-up with your PCP early next week for reevaluation. Return to the ED if new or worsening symptoms. All discharge instructions reviewed with patient and/or family. Voiced understanding. Scripts Mupirocin (Mupirocin) 2 % Oint...g. 22 GM TP Q8H, #30 EA Prov: CHAVEZ HANNON DO 12/21/21 Sulfamethoxazole/Trimethoprim (Bactrim Ds Tablet) 1 Each Tablet 1 EACH PO BID, #20 TAB Prov: CHAVEZ HANNON DO 12/21/21 CHAVEZ HANNON DO Dec 21, 2021 07:12
[2021-12-21] MEDS ORDERED: MUPI22OI2 TP (07:28)
[2021-12-21] MEDS ORDERED: SULF1TAB38 PO (07:28)
[2021-12-21] MEDS ORDERED: TRIM/SULFAMETH 160/800 (SEPTRA DS) TAB PO ONE (07:30)
[2021-12-21 07:38] VITALS: BP 127/87
== END 2021-12-21 07:38 | disposition home or self-care (01) ==
LOC: EDUNIT# 06:41 → ER FS 06:44
DX: S80.212A Abrasion, left knee, initial encounter (principal); Z28.310 Unvaccinated for COVID-19; W26.8XXA Contact with other sharp object(s), not elsewhere classified, initial encounter; Y93.89 Activity, other specified
CPT/HCPCS: 99283

== ENCOUNTER 2022-01-09 15:34 | Emergency (ER) | payer MEDICAID ==
[~2022-01-09] VITALS: Ht 172 cm; Wt 80.0 kg
[~2022-01-09 15:34] MED LIST changes: +MUPI22OI2 TP; +SULF1TAB38 PO
[2022-01-09 15:44] VITALS: BP 119/94
--- NOTE | 2022-01-09 15:53 | ED EENT ---
History of Present Illness General Chief Complaint: Oral/Throat Problems Stated Complaint: PAINFUL SWALLOWING Nursing Triage Note: Patient has ambulated to ER 2 with cc of a sore throat for the past week. Patient reports that he did vomit 2 days ago at work. Source: patient Exam Limitations: no limitations History of Present Illness Date Seen by Provider: Jan 09, 2022 Time Seen by Provider: 15:00 Initial Comments Patient is a 41-year-old male who presents with intermittent sore throat with nasal congestion and hoarseness x1 week. Denies fever, chills nausea sweats. No trismus. No ear pain headache. No symptoms or complaints Timing/Duration: gradual, other Location: other Prearrival Treatment: other Modifying Factors: Improves With Other Associated Symptoms: other Allergies and Home Medications Allergies Coded Allergies: codeine (Verified Allergy, Unknown, 01/09/21) prednisone (Verified Allergy, Unknown, 01/09/21) Penicillins (Unverified Adverse Reaction, Unknown, 10/20/19) shellfish derived (Unverified Adverse Reaction, Unknown, 10/20/19) Uncoded Allergies: acetamenophen (Adverse Reaction, Unknown, 10/20/19) Patient Home Medication List Home Medication List Reviewed: No Albuterol Sulfate (Ventolin Hfa) 1 Puff Puff, 2 PUFF INH Q4H PRN for WHEEZING Prescribed by: AALIYAH JAMA on 11/09/19 0848 Cephalexin (Cephalexin) 500 Mg Tablet, 500 MG PO TID Prescribed by: CHAVEZ HANNON on 01/09/21 0606 Cyclobenzaprine HCl (Cyclobenzaprine HCl) 10 Mg Tablet, 10 MG PO TID Prescribed by: CHAVEZ HANNON on 10/22/21 1847 Dexamethasone (Decadron) 4 Mg Tablet, 4 MG PO BID Prescribed by: CHAVEZ HANNON on 01/09/21 0606 Diclofenac Sodium (Diclofenac Sodium) 75 Mg Tablet.dr, 75 MG PO BID Prescribed by: HUMAIRA PITTS on 10/20/19 1214 Doxycycline Hyclate (Doxycycline Hyclate) 100 Mg Tablet, 100 MG PO BID Prescribed by: JOANN HENNING on 11/01/21 0018 Famotidine (Pepcid) 20 Mg Tablet, 20 MG PO BID Prescribed by: CHAVEZ HANNON on 08/15/20 0048 Hydrocodone/Acetaminophen (Hydrocodone-Acetamin 5-325 mg) 5 Mg-325 Mg Tablet, 1 TAB PO Q6H PRN for PAIN-MODERATE (5-7) Prescribed by: JOANN HENNING on 11/01/21 0019 Hydroxyzine HCl (Hydroxyzine HCl) 25 Mg Tablet, 50 MG PO Q8H Prescribed by: CHAVEZ HANNON on 01/09/21 0606 Mupirocin (Mupirocin) 2 % Oint...g., 22 GM TP Q8H Prescribed by: CHAVEZ HANNON on 12/21/21 0728 Naproxen (Naprosyn) 500 Mg Tablet, 500 MG PO BID Prescribed by: JOANN HENNING on 11/01/21 0105 Nitroglycerin (Nitroglycerin) 0.4 Mg Tab.subl, 0.4 MG SL UD PRN for CHEST PAIN Prescribed by: MARIA GUADALUPE FLORES on 10/31/20 1106 Omeprazole (Omeprazole) 40 Mg Capsule.dr, 40 MG PO Q12H Prescribed by: CHAVEZ HANNON on 08/15/20 0048 Ondansetron (Ondansetron Odt) 4 Mg Tab.rapdis, 4 MG PO TID Prescribed by: MARIA GUADALUPE FLORES on 12/12/20 0739 Ondansetron (Ondansetron Odt) 4 Mg Tab.rapdis, 4 MG PO Q6H PRN for NAUSEA/VOMITING Prescribed by: YEFRI VILLALOBOS on 09/11/212034 Oxycodone HCl (Oxycodone HCl) 5 Mg Tablet, 5 MG PO Q6H PRN for PAIN-MODERATE (5- 7) Prescribed by: DOMINGUEZ MELISSA on 11/01/21 1046 Sucralfate (Sucralfate) 1 Gm Tablet, 1 GM PO ACHS Prescribed by: CHAVEZ HANNON on 08/15/20 0048 Sulfamethoxazole/Trimethoprim (Bactrim Ds Tablet) 1 Each Tablet, 1 EACH PO BID Prescribed by: CHAVEZ HANNON on 12/21/21 07 Review of Systems Review of Systems Constitutional: see HPI Eyes: See HPI Ears: See HPI Nose: see HPI Mouth: see HPI Throat: see HPI Respiratory: see HPI Cardiovascular: see HPI Gastrointestinal: see HPI Musculoskeletal: see HPI Past Ngvvsah-[place]hshe-[place] Hx Patient Social History Tobacco Use?: No Use of E-Cig and/or Vaping dev: No Substance use?: No Alcohol Use?: No Pt feels they are or have been: Unable to obtain Immunizations Up To Date First/Initial COVID19 Vaccinat: denies Second COVID19 Vaccination Brandon: denies Third COVID19 Vaccination Date: denies Seasonal Allergies Seasonal Allergies: No Past Medical History Surgery/Hospitalization HX: APPY, PERITONSILAR ABSCESS, CP UNDER WORK UP W/ NURSE TECHNICIAN IN [place], GERD, Depression Surgeries: Yes Appendectomy Respiratory: Yes Asthma Cardiac: Yes Hypertension Neurological: Yes (Epilepsy, cleared 2 yrs ago. Took self off meds) Seizure Disorder Genitourinary: No Gastrointestinal: Yes Gastroesophageal Reflux Musculoskeletal: No Endocrine: No HEENT: No Cancer: No Psychosocial: No Integumentary: No Blood Disorders: No Physical Exam Vital Signs Vital Signs - First Documented 01/09/22 15:44 Temp 36.4 Pulse 75 Resp 16 B/P (MAP) 119/94 (102) Pulse Ox 96 O2 Delivery Room Air Height, Weight, BMI Height: '" Weight: lbs. oz. kg; 27.00 BMI Method: General Appearance: WD/WN, no apparent distress Eyes: bilateral eye normal inspection, bilateral eye PERRL, bilateral eye EOMI Ears: bilateral ear auricle normal, bilateral ear canal normal, bilateral ear TM normal Nose: normal inspection, active bleeding Mouth/Throat: normal mouth inspection, pharynx normal, foreign body, voice changes (Minimal hoarseness), other Gastrointestinal: non tender, soft Neurologic/Psychiatric: visual educator II-XII nml as tested, alert, oriented x 3 Progress/Results/Core Measures Results/Orders Lab Results Laboratory Tests Test 01/09/22 16:30 Range/Units Group A Streptococcus Screen NEGATIVE NEGATIVE My Orders Orders - CHAVEZ HANNON DO Rapid Strep A Screen (01/09/22 15:55) Covid 19 Inhouse Test (01/09/22 15:55) Influenza A And B By Pcr (01/09/22 15:55) Isolation Central Supply Req (01/09/22 15:55) Vital Signs/I&O 01/09/22 15:44 Temp 36.4 Pulse 75 Resp 16 B/P (MAP) 119/94 (102) Pulse Ox 96 O2 Delivery Room Air Blood Pressure Mean: 102 Departure Communication (Admissions) Patient with pharyngitis. No dysphonia, drooling or trismus. Patient left the patient eloped from the ER prior to results. Impression Primary Impression: Pharyngitis Disposition: HOME, SELF-CARE Condition: Stable Departure-Patient Inst. Decision time for Depature: 17:30 Referrals: XOCHITL LICONA APRN (PCP) Primary Care Physician [facility] (Family) Primary Care Physician Patient Instructions: Sore Throat, Adult (DC) Add. Discharge Instructions: Follow-up with your PCP for INR result All discharge instructions reviewed with patient and/or family. Voiced understanding. CHAVEZ HANNON DO Jan 09, 2022 15:53
== END 2022-01-09 18:20 | disposition home or self-care (01) ==
LOC: EDUNIT# 15:34 → ER FS 15:36
DX: J02.9 Acute pharyngitis, unspecified (principal); Z28.310 Unvaccinated for COVID-19
CPT/HCPCS: 87430; 99283

== ENCOUNTER 2022-03-18 08:27 | Emergency (ER) | payer OTHER, MEDICAID ==
[~2022-03-18] VITALS: Ht 172.7 cm; Wt 81.0 kg
[2022-03-18] MEDS ORDERED: ORPHENADRINE 60 MG/2 ML (NORFLEX) AMP (ED ONLY) IM STA (08:41)
[2022-03-18] MEDS ORDERED: KETOROLAC 60 MG/2 ML VIAL IM STA (08:41)
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
[2022-03-18] MEDS ORDERED: NAPR-1071 PO (09:36)
[2022-03-18] MEDS ORDERED: CYCL10TA25 PO (09:36)
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
[2022-03-18] MEDS ORDERED: OXC5T PO (09:54)
[2022-03-18 10:04] VITALS: BP 107/66
== END 2022-03-18 10:04 | disposition home or self-care (01) ==
LOC: EDUNIT# 08:27 → ER FS 08:29
DX: M25.511 Pain in right shoulder (principal); R07.89 Other chest pain; R51.9 Headache, unspecified; Z28.310 Unvaccinated for COVID-19; V28.49XA Other motorcycle driver injured in noncollision transport accident in traffic accident, initial encounter; Y92.410 Unspecified street and highway as the place of occurrence of the external cause
CPT/HCPCS: 70450; 71250; 72125; 73030; 96372

== ENCOUNTER 2022-04-02 02:33 | Emergency (ER) | payer MEDICAID ==
[~2022-04-02] VITALS: Ht 172.7 cm; Wt 79.0 kg
[~2022-04-02 02:33] MED LIST changes: +OXC5T PO
[2022-04-02] MEDS ORDERED: NS IV 1000 ML 1,000 ML IV STA (02:48)
--- NOTE | 2022-04-02 02:57 | ED General ---
General Chief Complaint: Chest Pain Stated Complaint: CHEST PAIN Source of Information: Patient, EMS, Old Records Exam Limitations: No Limitations History of Present Illness Date Seen by Provider: Apr 02, 2022 Time Seen by Provider: 02:35 Initial Comments 41-year-old male presenting from work by EMS due to chest tightness and not feel ing well. He states yesterday when he went home he was having chills and could not get warm. He went back into work tonight and has been having chest tightness and cough. He is bringing up some phlegm that is white to yellow- colored. He denies any nausea, vomiting, diarrhea. He does have 2 children at home sick with stomach virus. He has not been having any GI symptoms himself. 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 He has a history of asthma. Timing/Duration: 4-6 Hours Severity: Moderate Modifying Factors: worse with Other (Cough and deep breaths) Associated Systoms: Chest Pain (Tightness), Cough; No Diaphoresis; Fever/Chills (Reports of 100.1 fever at work tonight), Headaches, Loss of Appetite, Malaise; No Nausea/Vomiting, No Rash, No Seizure; Shortness of Air; No Syncope; Weakness Allergies and Home Medications Allergies Coded Allergies: codeine (Verified Allergy, Unknown, 01/09/21) prednisone (Verified Allergy, Unknown, 01/09/21) Penicillins (Unverified Adverse Reaction, Unknown, 10/20/19) shellfish derived (Unverified Adverse Reaction, Unknown, 10/20/19) Uncoded Allergies: acetamenophen (Adverse Reaction, Unknown, 10/20/19) Patient Home Medication List Home Medication List Reviewed: Yes Albuterol Sulfate (Ventolin Hfa) 1 Puff Puff, 2 PUFF INH Q4H PRN for WHEEZING Prescribed by: AALIAYH JAMA on 11/09/19 0848 Cephalexin (Cephalexin) 500 Mg Tablet, 500 MG PO TID Prescribed by: CHAVEZ HANNON on 01/09/21 0606 Cyclobenzaprine HCl (Cyclobenzaprine HCl) 10 Mg Tablet, 10 MG PO TID Prescribed by: YEFRI VILLALOBOS on 03/18/22 0936 Dexamethasone (Decadron) 4 Mg Tablet, 4 MG PO BID Prescribed by: CHAVEZ HANNON on 01/09/21 0606 Diclofenac Sodium (Diclofenac Sodium) 75 Mg Tablet.dr, 75 MG PO BID Prescribed by: HUMAIRA PITTS on 10/20/19 1214 Doxycycline Hyclate (Doxycycline Hyclate) 100 Mg Tablet, 100 MG PO BID Prescribed by: JOANN HENNING on 11/01/21 0018 Famotidine (Pepcid) 20 Mg Tablet, 20 MG PO BID Prescribed by: CHAVEZ HANNON on 08/15/20 0048 Hydrocodone/Acetaminophen (Hydrocodone-Acetamin 5-325 mg) 5 Mg-325 Mg Tablet, 1 TAB PO Q6H PRN for PAIN-MODERATE (5-7) Prescribed by: JOANN HENNING on 11/01/21 001 Hydroxyzine HCl (Hydroxyzine HCl) 25 Mg Tablet, 50 MG PO Q8H Prescribed by: CHAVEZ HANNON on 01/09/21 06 Mupirocin (Mupirocin) 2 % Oint...g., 22 GM TP Q8H Prescribed by: CHAVEZ HANNON on 12/21/21 0728 Naproxen (Naprosyn) 500 Mg Tablet, 500 MG PO BID Prescribed by: YEFRI VILLALOBOS on 03/18/22 0936 Nitroglycerin (Nitroglycerin) 0.4 Mg Tab.subl, 0.4 MG SL UD PRN for CHEST PAIN Prescribed by: AMRIA GUADALUPE FLORES on 10/31/20 110 Omeprazole (Omeprazole) 40 Mg Capsule.dr, 40 MG PO Q12H Prescribed by: CHAVEZ HANNON on 08/15/20 004 Ondansetron (Ondansetron Odt) 4 Mg Tab.rapdis, 4 MG PO TID Prescribed by: MARIA GUADALUPE FLORES on 12/12/20 0739 Ondansetron (Ondansetron Odt) 4 Mg Tab.rapdis, 4 MG PO Q6H PRN for NAUSEA/VOMITING Prescribed by: YEFRI VILLALOBOS on 09/11/21 203 Oxycodone HCl (Oxycodone HCl) 5 Mg Tablet, 5 MG PO Q6H PRN for PAIN-MODERATE (5- 7) Prescribed by: DOMINGUEZ MELISSA on 11/01/21 1046 Oxycodone Hcl (Oxyir Tablet) 5 Mg Tab, 5 MG PO Q6H PRN for PAIN-SEVERE (8-10) Prescribed by: YEFRI VILLALOBOS on 03/18/22 0954 Sucralfate (Sucralfate) 1 Gm Tablet, 1 GM PO ACHS Prescribed by: CHAVEZ HANNON on 08/15/20 0048 Sulfamethoxazole/Trimethoprim (Bactrim Ds Tablet) 1 Each Tablet, 1 EACH PO BID Prescribed by: CHAVEZ HANNON on 12/21/21 0728 Review of Systems Review of Systems Constitutional: chills; No diaphoresis; fever, malaise EENTM: nose congestion; No ear discharge, No ear pain, No blurred vision Respiratory: cough, short of breath Cardiovascular: chest pain (Tightness) Gastrointestinal: No abdominal pain, No nausea, No vomiting Genitourinary: No dysuria Musculoskeletal: no symptoms reported Skin: No rash Psychiatric/Neurological: No Symptoms Reported Hematologic/Lymphatic: No Symptoms Reported Past Rvjzvrg-Olswtz-Iidmad Hx Patient Social History Tobacco Use?: No Immunizations Up To Date First/Initial COVID19 Vaccinat: denies Second COVID19 Vaccination [place]: denies Third COVID19 Vaccination Date: denies Seasonal Allergies Seasonal Allergies: No Past Medical History Surgery/Hospitalization HX: APPY, PERITONSILAR ABSCESS, 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 [place], GERD, Depression Surgeries: Yes Appendectomy Respiratory: Yes Asthma Cardiac: Yes Hypertension Neurological: Yes (Epilepsy, cleared 2 yrs ago. Took self off meds) Seizure Disorder Genitourinary: No Gastrointestinal: Yes Gastroesophageal Reflux Musculoskeletal: No Endocrine: No HEENT: No Cancer: No Psychosocial: No Integumentary: No Blood Disorders: No Physical Exam Vital Signs Vital Signs - First Documented 04/02/22 02:33 Temp 36.8 Pulse 83 Resp 20 B/P (MAP) 111/65 (80) Pulse Ox 96 O2 Delivery Room Air Capillary Refill : Height, Weight, BMI Height: '" Weight: lbs. oz. kg; 27.00 BMI Method: General Appearance: No Apparent Distress, Other (Appears to not feel well) HEENT: PERRL/EOMI, Normal ENT Inspection, Pharynx Normal, Moist Mucous Membranes Neck: Full Range of Motion, Normal Inspection, Non Tender, Supple Respiratory: Chest Non Tender, Lungs Clear, Normal Breath Sounds, No Accessory Muscle Use, No Respiratory Distress Cardiovascular: Regular Rate, Rhythm, Normal Peripheral Pulses Gastrointestinal: Normal Bowel Sounds, No Pulsatile Mass, Non Tender, Soft Rectal: Deferred Extremity: Normal Capillary Refill, Normal Inspection, No Pedal Edema Neurologic/Psychiatric: Alert, Oriented x3, 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 Norm as Tested Skin: Normal Color, Warm/Dry Focused Exam Lactate Level 04/02/22 02:40: Lactic Acid Level 0.78 Lactic Acid Level Laboratory Tests Test 04/02/22 02:40 Lactic Acid Level 0.78 MMOL/L (0.50-2.00) Progress/Results/Core Measures Suspected Sepsis SIRS Temperature: Pulse: Respiratory Rate: Laboratory Tests 04/02/22 02:40: White Blood Count 8.3 Blood Pressure / Mean: 04/02/22 02:40: Lactic Acid Level 0.78 Laboratory Tests 04/02/22 02:40: Creatinine 0.88, INR Comment 1.1, Platelet Count 235, Total Bilirubin 0.6 Results/Orders Lab Results Laboratory Tests Test 04/02/22 02:40 04/02/22 02:50 Range/Units White Blood Count 8.3 4.3-11.0 10^3/uL Red Blood Count 5.08 4.30-5.52 10^6/uL Hemoglobin 14.8 13.3-17.7 g/dL Hematocrit 43 40-54 % Mean Corpuscular Volume 84 80-99 fL Mean Corpuscular Hemoglobin 29 25-34 pg Mean Corpuscular Hemoglobin Concent 35 32-36 g/dL Red Cell Distribution Width 13.1 10.0-14.5 % Platelet Count 235 130-400 10^3/uL Mean Platelet Volume 9.3 9.0-12.2 fL Immature Granulocyte % (Auto) 0 % Neutrophils (%) (Auto) 64 42-75 % Lymphocytes (%) (Auto) 21 12-44 % Monocytes (%) (Auto) 14 H 0-12 % Eosinophils (%) (Auto) 0 0-10 % Basophils (%) (Auto) 1 0-10 % Neutrophils # (Auto) 5.3 1.8-7.8 10^3/uL Lymphocytes # (Auto) 1.7 1.0-4.0 10^3/uL Monocytes # (Auto) 1.1 H 0.0-1.0 10^3/uL Eosinophils # (Auto) 0.0 0.0-0.3 10^3/uL Basophils # (Auto) 0.1 0.0-0.1 10^3/uL Immature Granulocyte # (Auto) 0.0 0.0-0.1 10^3/uL Prothrombin Time 14.2 12.2-14.7 SEC INR Comment 1.1 0.8-1.4 Activated Partial Thromboplast Time 32 24-35 SEC Sodium Level 136 135-145 MMOL/L Potassium Level 3.6 3.6-5.0 MMOL/L Chloride Level 99 98-107 MMOL/L Carbon Dioxide Level 21 21-32 MMOL/L Anion Gap 16 H 5-14 MMOL/L Blood Urea Nitrogen 13 7-18 MG/DL Creatinine 0.88 0.60-1.30 MG/DL Estimat Glomerular Filtration Rate 110 BUN/Creatinine Ratio 15 Glucose Level 119 H 70-105 MG/DL Lactic Acid Level 0.78 0.50-2.00 MMOL/L Calcium Level 8.8 8.5-10.1 MG/DL Corrected Calcium 8.7 8.5-10.1 MG/DL Magnesium Level 1.8 1.6-2.4 MG/DL Total Bilirubin 0.6 0.1-1.0 MG/DL Aspartate Amino Transf (AST/SGOT) 24 5-34 U/L Alanine Aminotransferase (ALT/SGPT) 23 0-55 U/L Alkaline Phosphatase 115 40-136 U/L Troponin I < 0.30 <0.30 NG/ML C-Reactive Protein 1.95 H <0.50 MG/DL Pro-B-Type Natriuretic Peptide 35.3 <125.0 PG/ML Total Protein 6.8 6.4-8.2 GM/DL Albumin 4.1 3.2-4.5 GM/DL Lipase 12 8-78 U/L Influenza Type A (RT-PCR) Not Detected Not Detecte Influenza Type B (RT-PCR) Not Detected Not Detecte SARS-CoV-2 RNA (RT-PCR) Detected H Not Detecte My Orders Orders - YEFRI VILLALOBOS MD Cbc With Automated Diff (04/02/22 02:46) Magnesium (04/02/22 02:46) Chest 1 View Ap/Pa Only (04/02/22 02:46) Ekg Tracing (04/02/22 02:46) Comprehensive Metabolic Panel (04/02/22 02:46) Protime With Inr (04/02/22 02:46) Partial Thromboplastin Time (04/02/22 02:46) O2 (04/02/22 02:46) Monitor-Rhythm Ecg Trace Only (04/02/22 02:46) Ed Iv/Invasive Line Start (04/02/22 02:46) Lipase (04/02/22 02:46) Troponin I Fs (04/02/22 02:46) Probnp Fs (04/02/22 02:46) Blood Culture (04/02/22 02:46) Ua Culture If Indicated (04/02/22 02:46) Crp Fs (04/02/22 02:46) Lactic Acid Analyzer (04/02/22 02:46) Covid 19 Inhouse Test (04/02/22 02:48) Influenza A And B By Pcr (04/02/22 02:48) Ns Iv 1000 Ml (Sodium Chloride 0.9%) (04/02/22 02:48) Vital Signs/I&O 04/02/22 04/02/22 02:33 02:33 Temp 36.8 Pulse 83 Resp 20 B/P (MAP) 111/65 (80) Pulse Ox 96 96 O2 Delivery Room Air Room Air Capillary Refill : Progress Note #1: Progress Note Check electrocardiogram with his complaint of chest tightness. Obtain COVID swab and influenza swab since he was having fever and chills and general body aches. With his complaint of chest tightness we will also obtain a chest x-ray to evaluate for possible pneumonia, infiltrate, effusions, cardiomegaly. Check basic labs including blood cultures with a lactic acid looking for signs of sepsis, electrolyte imbalance, renal failure, hepatic failure, elevated white blood cell count. Administer liter of normal saline IV fluid bolus after the fluids finished from EMS. He was already given aspirin 324 mg by EMS as well as nitroglycerin. Progress Note #2: Progress Note On my review of his 1 view chest x-ray he does not have an acute infiltrate or effusion. On my review and with comparison to tracing from November 2021, his electrocardiogram does not show acute ischemic changes and appears similar to a tracing from November 2021. Labs show stable CBC without acute significant abnormality. His chemistry panel was stable with elevated CRP to go along with inflammation or infection. His troponin and cardiac enzymes were negative. Considering he had had symptoms all evening if he was having acute coronary syndrome or myocardial infarction he should have had elevated troponin by now. His nasal swab for COVID and influenza was positive for COVID. Counseled patient on findings and results. He states he does have an inhaler already and that he does not need an additional 1. He will need to isolate and wear a mask for the next 5 days. After that he could be around other people as long as he was wearing a mask and not running a fever over 101 Fahrenheit. Check back with the clinic for continued concerns. ECG Initial ECG Impression Date: Apr 02, 2022 Initial ECG Impression Time: 02:38 Initial ECG Rate: 86 Initial ECG Rhythm: Normal Sinus Initial ECG Comparisson: Unchanged (November 2021) Comment Normal sinus rhythm with a heart rate of 86 bpm. [place] interval [address] elevation. QT interval 339 ms with a QTc interval 383 ms. He has no significant change from prior tracing in November 2021. I personally reviewed and interpreted the electrocardiogram and compared it to prior tracings in the system Diagnostic Imaging Diagonstic Imaging: Xray Plain Films/CT/US/NM/MRI: chest Comments On my review of the 1 view chest x-ray he has no acute infiltrate or effusions. It appears similar to prior images from October 2021 Reviewed: Reviewed by Me Departure Impression Primary Impression: COVID-19 virus infection Additional Impressions: Chest tightness Fever and chills Cough Qualified Codes: R05.1 - Acute cough Disposition: 01 HOME, SELF-CARE Condition: Stable Departure-Patient Inst. Decision time for Depature: 03:48 Referrals: XOCHITL LICONA APRN (PCP) Primary Care Physician [facility]MICHAEL (Family) Primary Care Physician Patient Instructions: COVID-19 ED, Fever, Adult ED, Cough, Adult ED Add. Discharge Instructions: Stay well-hydrated and get plenty of rest. You should wear a mask and stay isolated from family and other people. You need to do this for at least the next 5 days or until you are not running a fever and having symptoms. Once the this happens you could be around other people but he would still need to wear a mask for an additional 5 days after your symptoms and fever had resolved. Use Acetaminophen and/or Ibuprofen to help with fever over 101 F. All discharge instructions reviewed with patient and/or family. Voiced understanding. Work/School Note: Work Release Form Date Seen in the Emergency Department: Apr 02, 2022 Return to Work: Apr 08, 2022 Restrictions: Return-No Fever (24hrs) Other Restrictions Listed Below: Wear mask until 04/11. Return 04/08 if fever free for 24 hours YEFRI VILLALOBOS MD Apr 02, 2022 02:57
[2022-04-02 03:03] LABS: BASOPHILS # (AUTO) 0.1 10^3/uL (0.0-0.1); BASOPHILS % (AUTO) 1 % (0-10); EOSINOPHILS % (AUTO) 0 % (0-10); HEMATOCRIT 43 % (40-54); HEMOGLOBIN 14.8 g/dL (13.3-17.7); LYMPHOCYTES # (AUTO) 1.7 10^3/uL (1.0-4.0); LYMPHOCYTES % (AUTO) 21 % (12-44); MEAN CORPUSCULAR HEMOGLOBIN 29 pg (25-34); MEAN CORPUSCULAR HGB CONC 35 g/dL (32-36); MEAN CORPUSCULAR VOLUME 84 fL (80-99); MEAN PLATELET VOLUME 9.3 fL (9.0-12.2); MONOCYTES # (AUTO) 1.1 10^3/uL (0.0-1.0); MONOCYTES % (AUTO) 14 % (0-12); NEUTROPHILS # (AUTO) 5.3 10^3/uL (1.8-7.8); NEUTROPHILS % (AUTO) 64 % (42-75); PLATELET COUNT 235 10^3/uL (130-400); WHITE BLOOD COUNT 8.3 10^3/uL (4.3-11.0)
[2022-04-02 03:19] LABS: INR 1.1 (0.8-1.4); PROTHROMBIN TIME PATIENT 14.2 SEC (12.2-14.7)
[2022-04-02 03:30] LABS: CREATININE SERUM 0.88 MG/DL (0.60-1.30); POTASSIUM 3.6 MMOL/L (3.6-5.0)
[2022-04-02 03:31] LABS: ALBUMIN 4.1 GM/DL (3.2-4.5); BILIRUBIN,TOTAL 0.6 MG/DL (0.1-1.0); CALCIUM 8.8 MG/DL (8.5-10.1); MAGNESIUM 1.8 MG/DL (1.6-2.4); TOTAL PROTEIN 6.8 GM/DL (6.4-8.2)
[2022-04-02 04:15] VITALS: BP 99/73
--- NOTE | 2022-04-02 06:32 | Diagnostic Imaging Report ---
EXAMINATION: Chest 1 view HISTORY: Chest tightness. COMPARISON: 03/18/2022. 10/31/2021. FINDINGS: The lung volumes are normal. No focal consolidation is seen. No large pleural effusion or pneumothorax is seen. The cardiomediastinal silhouette is normal in size and contour. No acute osseous abnormality is seen. IMPRESSION: 1. No acute pleuroparenchymal process. Dictated by: Dictated on workstation # [id number]
== END 2022-04-02 04:15 | disposition home or self-care (01) ==
LOC: EDUNIT# 02:35 → ER FS 02:37
DX: U07.1 COVID-19 (principal); R07.89 Other chest pain; R50.9 Fever, unspecified; R05.1 Acute cough; R79.82 Elevated C-reactive protein (CRP); Z28.310 Unvaccinated for COVID-19
CPT/HCPCS: 36415; 71045; 80053; 83605; 83690; 83735; 83880; 84484; 85025; 85610; 85730; 86141; 87040; 87636; 93005; 93041

== ENCOUNTER 2022-09-11 07:24 | Emergency (ER) | payer MEDICAID ==
[~2022-09-11] VITALS: Ht 172 cm; Wt 65.0 kg
[2022-09-11] MEDS ORDERED: ONDANSETRON 4 MG/2 ML (SDV) Z0FRAN IVP ONE (07:45)
[2022-09-11] MEDS ORDERED: ANTACID SUSP 30 ML UDC (MYLANTA) PO ONE (07:45)
[2022-09-11] MEDS ORDERED: LIDOCAINE 2% VISCOUS 15 ML UDC PO ONE (07:45)
[2022-09-11] MEDS ORDERED: ASPIRIN 81 MG CHEW (CHILDREN'S ASA) PO ONE (07:45)
[2022-09-11 07:46] LABS: BASOPHILS # (AUTO) 0.1 10^3/uL (0.0-0.1); BASOPHILS % (AUTO) 1 % (0-10); EOSINOPHILS # (AUTO) 0.3 10^3/uL (0.0-0.3); EOSINOPHILS % (AUTO) 4 % (0-10); HEMATOCRIT 47 % (40-54); LYMPHOCYTES # (AUTO) 2.9 10^3/uL (1.0-4.0); LYMPHOCYTES % (AUTO) 40 % (12-44); MEAN CORPUSCULAR HEMOGLOBIN 29 pg (25-34); MEAN CORPUSCULAR HGB CONC 34 g/dL (32-36); MEAN CORPUSCULAR VOLUME 85 fL (80-99); MEAN PLATELET VOLUME 8.7 fL (9.0-12.2); MONOCYTES # (AUTO) 0.5 10^3/uL (0.0-1.0); MONOCYTES % (AUTO) 8 % (0-12); NEUTROPHILS # (AUTO) 3.4 10^3/uL (1.8-7.8); NEUTROPHILS % (AUTO) 47 % (42-75); PLATELET COUNT 269 10^3/uL (130-400); WHITE BLOOD COUNT 7.2 10^3/uL (4.3-11.0)
--- NOTE | 2022-09-11 08:00 | Diagnostic Imaging Report ---
Clinical indication: Patient with chest pain. EXAM: Portable chest x-ray upright view. COMPARISON: Chest x-ray dated 04/02/2022. FINDINGS: Lungs/pleura: Lungs are clear. There is no pneumothorax. There is no pleural effusion. Mediastinum: Unremarkable. Pulmonary vasculature: Unremarkable. Heart: Unremarkable. Bones/extrathoracic soft tissue: Unremarkable. IMPRESSION: There is no radiographic evidence of acute cardiopulmonary process. Dictated by: Dictated on workstation # [id number]
[2022-09-11 08:12] LABS: ALBUMIN 4.3 GM/DL (3.2-4.5); BILIRUBIN,TOTAL 0.9 MG/DL (0.1-1.0); CALCIUM 9.1 MG/DL (8.5-10.1); CREATININE SERUM 0.82 MG/DL (0.60-1.30); POTASSIUM 3.9 MMOL/L (3.6-5.0); TOTAL PROTEIN 7.1 GM/DL (6.4-8.2)
[2022-09-11] MEDS ORDERED: KETOROLAC 30 MG/ML VIAL IVP ONE (08:15)
--- NOTE | 2022-09-11 08:16 | ED Chest Pain ---
General Chief Complaint: Respiratory Problems Stated Complaint: CHEST PAIN Nursing Triage Note: Patient has presented to ER with cc of lower left chest pain. He reports that he has pain in his left chest when he takes a breath. He reports the pain is always there but is worse with taking a breath. He has not taken anything at home for the pain. Source: patient, old records Exam Limitations: no limitations History of Present Illness Date Seen by Provider: Sep 11, 2022 Time Seen by Provider: 07:25 Initial Comments This 42-year-old gentleman presents to the emergency room with primary complaint of chest pain of pleuritic nature in the left lower chest that started around 0400. Pain is worse with movement and deep breathing. He feels short of breath because of the pain. He has history of asthma but is not wheezing presently. He has seen a credit processor previously but is vague on why he saw a credit processor and does not aware of any specific cardiac pathology. He denies any fever, cough, nausea, chills, or other associated symptoms. Pain is reproducible with palpation of the lower left anterior chest wall and in the left upper quadrant just below the costal margin. He denies any alcohol, tobacco, or drug use. He reports a stress test was advised at 1 point in time but he was not able to obtain the stress test for reasons he cannot recall. He has history of GERD. His medication filling record shows a Protonix prescription filled yesterday. His primary care provider is Xochitl Licona. Allergies and Home Medications Allergies Coded Allergies: codeine (Verified Allergy, Unknown, 01/09/21) prednisone (Verified Allergy, Unknown, 01/09/21) Penicillins (Unverified Adverse Reaction, Unknown, 10/20/19) shellfish derived (Unverified Adverse Reaction, Unknown, 10/20/19) Uncoded Allergies: acetamenophen (Adverse Reaction, Unknown, 10/20/19) Patient Home Medication List Home Medication List Reviewed: Yes Albuterol Sulfate (Ventolin Hfa) 1 Puff Puff, 2 PUFF INH Q4H PRN for WHEEZING Prescribed by: AALIYAH JAMA on 11/09/19 0848 Cephalexin (Cephalexin) 500 Mg Tablet, 500 MG PO TID Prescribed by: CHAVEZ HANNON on 01/09/21 0606 Cyclobenzaprine HCl (Cyclobenzaprine HCl) 10 Mg Tablet, 10 MG PO TID Prescribed by: YEFRI VILLALOBOS on 03/18/22935 Dexamethasone (Decadron) 4 Mg Tablet, 4 MG PO BID Prescribed by: CHAVEZ HANNON on 01/09/21 06 Diclofenac Sodium (Diclofenac Sodium) 75 Mg Tablet.dr, 75 MG PO BID Prescribed by: HUMAIRA PITTS on 10/20/19 1214 Doxycycline Hyclate (Doxycycline Hyclate) 100 Mg Tablet, 100 MG PO BID Prescribed by: JOANN HENNING on 11/01/2117 Famotidine (Pepcid) 20 Mg Tablet, 20 MG PO BID Prescribed by: CHAVEZ HANNON on 08/15/2047 Hydrocodone/Acetaminophen (Hydrocodone-Acetamin 5-325 mg) 5 Mg-325 Mg Tablet, 1 TAB PO Q6H PRN for PAIN-MODERATE (5-7) Prescribed by: JOANN HENNING on 11/01/2118 Hydroxyzine HCl (Hydroxyzine HCl) 25 Mg Tablet, 50 MG PO Q8H Prescribed by: CHAVEZ HANNON on 01/09/21605 Mupirocin (Mupirocin) 2 % Oint...g., 22 GM TP Q8H Prescribed by: CHAVEZ HANNON on 12/21/21 0728 Naproxen (Naprosyn) 500 Mg Tablet, 500 MG PO BID Prescribed by: YEFRI VILLALOBOS on 03/18/22935 Nitroglycerin (Nitroglycerin) 0.4 Mg Tab.subl, 0.4 MG SL UD PRN for CHEST PAIN Prescribed by: MARIA GUADALUPE FLORES on 10/31/20 110 Omeprazole (Omeprazole) 40 Mg Capsule.dr, 40 MG PO Q12H Prescribed by: HCAVEZ HANNON on 08/15/20 004 Ondansetron (Ondansetron Odt) 4 Mg Tab.rapdis, 4 MG PO TID Prescribed by: MARIA GUADALUPE FLORES on 12/12/20 0739 Ondansetron (Ondansetron Odt) 4 Mg Tab.rapdis, 4 MG PO Q6H PRN for NAUSEA/VOMITING Prescribed by: YEFRI VILLALOBOS on 09/11/212034 Oxycodone HCl (Oxycodone HCl) 5 Mg Tablet, 5 MG PO Q6H PRN for PAIN-MODERATE (5- 7) Prescribed by: DOMINGUEZ MELISSA on 11/01/21 1046 Oxycodone Hcl (Oxyir Tablet) 5 Mg Tab, 5 MG PO Q6H PRN for PAIN-SEVERE (8-10) Prescribed by: YEFRI VILLALOBOS on 03/18/22 0954 Sucralfate (Sucralfate) 1 Gm Tablet, 1 GM PO ACHS Prescribed by: CHAVEZ HANNON on 08/15/20 0048 Sulfamethoxazole/Trimethoprim (Bactrim Ds Tablet) 1 Each Tablet, 1 EACH PO BID Prescribed by: CHAVEZ HANNON on 12/21/21 0728 Review of Systems Review of Systems Constitutional: no symptoms reported EENTM: No Symptoms Reported Respiratory: See HPI Cardiovascular: See HPI Gastrointestinal: See HPI Genitourinary: No Symptoms Reported Musculoskeletal: no symptoms reported Skin: no symptoms reported Psychiatric/Neurological: No Symptoms Reported Endocrine: No Symptoms Reported Past Ovtkciz-Zguibh-Uzbkqc Hx Patient Social History Tobacco Use?: No Use of E-Cig and/or Vaping dev: No Substance use?: No Alcohol Use?: No Pt feels they are or have been: No Immunizations Up To Date First/Initial COVID19 Vaccinat: unvaccinated Second COVID19 Vaccination Brandon: unvaccinated Third COVID19 Vaccination Date: unvaccinated Seasonal Allergies Seasonal Allergies: No Past Medical History Surgery/Hospitalization HX: GERD, Esophagitis, Asthma, EGD, Appendectomy Surgeries: Yes Appendectomy Respiratory: Yes Asthma Cardiac: Yes Hypertension Neurological: Yes (Epilepsy, cleared 2 yrs ago. Took self off meds) Concussion, Seizure Disorder Genitourinary: No Gastrointestinal: Yes Gastroesophageal Reflux Musculoskeletal: No Endocrine: No HEENT: No Cancer: No Psychosocial: No Integumentary: No Blood Disorders: No Physical Exam Vital Signs Vital Signs - First Documented 09/11/22 09/11/22 07:30 07:40 Temp 36.7 Pulse 76 Resp 14 B/P (MAP) 122/84 (97) Pulse Ox 97 O2 Delivery Room Air Capillary Refill : Height, Weight, BMI Height: '" Weight: lbs. oz. kg; 21.00 BMI Method: General Appearance: No Apparent Distress, WD/WN HEENT: Normal ENT Inspection Neck: Normal Inspection; No JVD Respiratory: Lungs Clear, Normal Breath Sounds, No Accessory Muscle Use, No R espiratory Distress, Other (Splinting respirations. Tenderness to palpation over the left lower anterior chest wall) Cardiovascular: Regular Rate, Rhythm, No Edema, No Murmur, Normal Peripheral Pulses Gastrointestinal: Normal Bowel Sounds, Soft; No Distended; Tenderness (Just under the left anterior costal margin) Extremity: Normal Inspection, No Calf Tenderness, No Pedal Edema Neurologic/Psychiatric: Alert, Oriented x3, No Motor/Sensory Deficits, Normal Mood/Affect Skin: Normal Color, Warm/Dry; No Rash Progress/Results/Core Measures Results/Orders Lab Results Laboratory Tests Test 09/11/22 07:37 09/11/22 09:40 Range/Units White Blood Count 7.2 4.3-11.0 10^3/uL Red Blood Count 5.48 4.30-5.52 10^6/uL Hemoglobin 16.0 13.3-17.7 g/dL Hematocrit 47 40-54 % Mean Corpuscular Volume 85 80-99 fL Mean Corpuscular Hemoglobin 29 25-34 pg Mean Corpuscular Hemoglobin Concent 34 32-36 g/dL Red Cell Distribution Width 12.7 10.0-14.5 % Platelet Count 269 130-400 10^3/uL Mean Platelet Volume 8.7 L 9.0-12.2 fL Immature Granulocyte % (Auto) 0 % Neutrophils (%) (Auto) 47 42-75 % Lymphocytes (%) (Auto) 40 12-44 % Monocytes (%) (Auto) 8 0-12 % Eosinophils (%) (Auto) 4 0-10 % Basophils (%) (Auto) 1 0-10 % Neutrophils # (Auto) 3.4 1.8-7.8 10^3/uL Lymphocytes # (Auto) 2.9 1.0-4.0 10^3/uL Monocytes # (Auto) 0.5 0.0-1.0 10^3/uL Eosinophils # (Auto) 0.3 0.0-0.3 10^3/uL Basophils # (Auto) 0.1 0.0-0.1 10^3/uL Immature Granulocyte # (Auto) 0.0 0.0-0.1 10^3/uL Prothrombin Time 13.1 12.2-14.7 SEC INR Comment 0.9 0.8-1.4 Activated Partial Thromboplast Time 27 24-35 SEC Sodium Level 138 135-145 MMOL/L Potassium Level 3.9 3.6-5.0 MMOL/L Chloride Level 104 98-107 MMOL/L Carbon Dioxide Level 27 21-32 MMOL/L Anion Gap 7 5-14 MMOL/L Blood Urea Nitrogen 19 H 7-18 MG/DL Creatinine 0.82 0.60-1.30 MG/DL Estimat Glomerular Filtration Rate 112 BUN/Creatinine Ratio 23 Glucose Level 107 H 70-105 MG/DL Calcium Level 9.1 8.5-10.1 MG/DL Corrected Calcium 8.9 8.5-10.1 MG/DL Magnesium Level 2.0 1.6-2.4 MG/DL Total Bilirubin 0.9 0.1-1.0 MG/DL Aspartate Amino Transf (AST/SGOT) 17 5-34 U/L Alanine Aminotransferase (ALT/SGPT) 29 0-55 U/L Alkaline Phosphatase 92 40-136 U/L Myoglobin 31.5 <72.0 NG/ML Troponin I < 0.30 < 0.30 <0.30 NG/ML Total Protein 7.1 6.4-8.2 GM/DL Albumin 4.3 3.2-4.5 GM/DL Lipase 15 8-78 U/L My Orders Orders - SG HILL MD Cbc With Automated Diff (09/11/22 07:36) Magnesium (09/11/22 07:36) Chest 1 View Ap/Pa Only (09/11/22 07:36) Ekg Tracing (09/11/22 07:36) Comprehensive Metabolic Panel (09/11/22 07:36) Myoglobin Serum (09/11/22 07:36) Protime With Inr (09/11/22 07:36) Partial Thromboplastin Time (09/11/22 07:36) O2 (09/11/22 07:36) Monitor-Rhythm Ecg Trace Only (09/11/22 07:36) Lipid Panel (09/12/22 06:00) Aspirin Chewable Tablet (Baby Aspirin Ch (09/11/22 07:45) Ed Iv/Invasive Line Start (09/11/22 07:36) Troponin I Fs (09/11/22 07:36) Ondansetron Injection (Zofran Injectio (09/11/22 07:45) Lidocaine 2% Viscous 15 Ml (Xylocaine Vi (09/11/22 07:45) Antacid Suspension (Mylanta Suspension (09/11/22 07:45) Lipase (09/11/22 07:40) Ketorolac Injection (Toradol Injection) (09/11/22 08:15) Troponin I Fs (09/11/22 09:40) Medications Given in ED Current Medications Medications Dose Ordered Sig/Yaima Route Start Time Stop Time Status Last Admin Dose Admin Al Hydrox/Mg Hydrox/Simethicone 30 ml ONCE ONCE PO 09/11/22 07:45 09/11/22 07:46 DC 09/11/22 07:45 30 ML Aspirin 324 mg ONCE ONCE PO 09/11/22 07:45 09/11/22 07:46 DC 09/11/22 07:44 324 MG Ketorolac Tromethamine 30 mg ONCE ONCE IVP 09/11/22 08:15 09/11/22 08:16 DC 09/11/22 08:15 30 MG Lidocaine HCl 15 ml ONCE ONCE PO 09/11/22 07:45 09/11/22 07:46 DC 09/11/22 07:45 15 ML Ondansetron HCl 4 mg ONCE ONCE IVP 09/11/22 07:45 09/11/22 07:46 DC 09/11/22 07:45 4 MG Vital Signs/I&O 09/11/22 09/11/22 07:30 07:40 Temp 36.7 Pulse 76 Resp 14 B/P (MAP) 122/84 (97) Pulse Ox 97 O2 Delivery Room Air Room Air Blood Pressure Mean: 97 Progress Progress Note #1: Time: 08:19 Progress Note Patient was interviewed and examined shortly after arrival. Because of tenderness in the left upper quadrant under the costal margin and history of GERD, a GI cocktail and Zofran were administered. He had reduction in his pain from 6/10 down to 4/10. The nature of the pain is still the same. He still has some minimal tenderness on palpation to both the chest wall and the left upper quadrant. Labs are still pending. Toradol was ordered for further pain control. Chest x-ray was viewed by me and report reviewed. There were no acute abnormalities. EKG was unremarkable. Progress Note #2: Time: 08:51 Progress Note Patient had further pain reduction after Toradol. He now reports his pain is 2/10. He denies any tenderness to palpation at this time. He will have a 2- hour troponin obtained at 0940. Labs have been reviewed in their entirety including CBC, CMP, lipase, troponin. All labs were unremarkable. D-dimer was not obtained as patient did not meet PERC criteria for DVT/PE screening. Progress Note #3: Time: 10:36 Progress Note Repeat troponin was negative. Patient is pain-free at this time. See discharge instructions for further discussion. Patient made mention of desiring disability for "all his medical problems" to nursing staff. Initial ECG Impression Date: Sep 11, 2022 Initial ECG Impression Time: 07:29 Initial ECG Rate: 64 Initial ECG Rhythm: Normal Sinus Initial ECG Intervals: Normal Initial ECG Impression: Normal Comment EKG per my interpretation is normal sinus rhythm with no ST elevation or depression. No abnormal intervals. No significant axis deviation. Diagnostic Imaging Diagonstic Imaging: Xray Plain Films/CT/US/NM/MRI: chest Comments Chest x-ray viewed by me. I appreciated no pneumothorax, infiltrate, or other acute abnormalities. Radiologist's report was also reviewed as below: NAME: ROCÍO JOHNSON [facility] REC#: [id number] PT STATUS: REG ER : 1980 PHYSICIAN: SG HILL MD ADMIT DATE: 09/11/22/ER FS Draft Date of Exam:09/11/22 CHEST 1 VIEW AP/PA ONLY Clinical indication: Patient with chest pain. EXAM: Portable chest x-ray upright view. COMPARISON: Chest x-ray dated 04/02/2022. FINDINGS: Lungs/pleura: Lungs are clear. There is no pneumothorax. There is no pleural effusion. Mediastinum: Unremarkable. Pulmonary vasculature: Unremarkable. Heart: Unremarkable. Bones/extrathoracic soft tissue: Unremarkable. IMPRESSION: There is no radiographic evidence of acute cardiopulmonary process. Dictated on workstation # [id number] Dict: 09/11/22752 Trans: 09/11/22 075 [id number] Interpreted by: ROMERO MATIAS MD Departure Impression Primary Impression: Anterior chest wall pain Additional Impression: Left upper quadrant abdominal pain Disposition: 01 HOME, SELF-CARE Condition: Improved Departure-Patient Inst. Decision time for Depature: 10:37 Referrals: XOCHITL LICONA APRN (PCP) Primary Care Physician [facility]/MICHAEL (Family) Primary Care Physician Patient Instructions: Abdominal Pain, Adult ED, Chest Pain That Is Not Caused by the Heart (DC) Add. Discharge Instructions: Continue taking Protonix (pantoprazole) as prescribed. Avoid the following to prevent acid reflux and stomach irritation: Eating large meals, eating close to bedtime, caffeine, carbonation, chocolate, citrus fruits and juices, tomato products, alcohol, tobacco, mints, spicy foods, fatty/greasy foods, NSAID medications such as ibuprofen or naproxen, and anything else you know irritates your stomach. You may use topical pain therapies such as lidocaine or Salonpas patches. You may also use ibuprofen sparingly. If ibuprofen is used, take with food or milk to avoid stomach irritation. Return to care if you have worsening symptoms despite following these instructions. Follow-up with your primary care provider as soon as possible. All discharge instructions reviewed with patient and/or family. Voiced understanding. Work/School Note: Work Release Form Date Seen in the Emergency Department: Sep 11, 2022 Return to Work: Sep 11, 2022 Restrictions: No Restrictions Copy Copies To 1: [facility]/SG BERNAL MD Sep 11, 2022 08:16
[2022-09-11 08:17] LABS: INR 0.9 (0.8-1.4); PROTHROMBIN TIME PATIENT 13.1 SEC (12.2-14.7)
[2022-09-11 08:25] LABS: LIPASE 15 U/L (8-78)
[2022-09-11 10:43] VITALS: BP 104/72
== END 2022-09-11 10:44 | disposition home or self-care (01) ==
LOC: EDUNIT# 07:24 → ER FS 07:25
DX: R07.89 Other chest pain (principal); R10.12 Left upper quadrant pain; K21.00 Gastro-esophageal reflux disease with esophagitis, without bleeding; Z90.49 Acquired absence of other specified parts of digestive tract; Z88.6 Allergy status to analgesic agent; Z28.310 Unvaccinated for COVID-19
CPT/HCPCS: 36415; 71045; 80053; 83690; 83735; 83874; 84484; 85025; 85610; 85730; 93005; 93041

== ENCOUNTER → 2022-09-19 | Outpatient (CLI) | payer MEDICAID ==
--- NOTE | 2022-09-19 10:03 | Diagnostic Imaging Report ---
INDICATION: Scoliosis EXAMINATION: Scoliosis series 09/19/2022 FINDINGS: Multiple views of the entire spine frontal and lateral projections. A single view of the entire spine is not obtained limiting evaluation for appropriate measurement of the curvature. There does however appear to be a dextroconvex scoliosis of the thoracolumbar spine measuring approximately 4 degrees from the superior endplate of T11 to the inferior endplate of L3. No vertebral body anomalies appreciated. IMPRESSION: 1. 4 degrees dextroconvex scoliosis of the thoracolumbar spine. Dictated by: Dictated on workstation # [id number]
== END ==
LOC: RAD FS 08:57
PROVIDERS: ATTEND Nurse Practitioner Family
DX: M41.85 Other forms of scoliosis, thoracolumbar region (principal)
CPT/HCPCS: 72082

== ENCOUNTER 2022-12-23 17:37 | Emergency (ER) | payer SELFPAY ==
[~2022-12-23] VITALS: Ht 175 cm; Wt 81.0 kg
[2022-12-23 17:46] VITALS: BP 123/79
[2022-12-23] MEDS ORDERED: cefTRIAXone 1,000 MG VIAL (for IV or IM) IM STA (17:51)
[2022-12-23] MEDS ORDERED: KETOROLAC 60 MG/2 ML VIAL IM STA (17:51)
[2022-12-23] MEDS ORDERED: SULF1TAB38 PO (17:55)
--- NOTE | 2022-12-23 17:56 | ED Integumentary General ---
General Chief Complaint: Bite-Animal/Human/Insect Stated Complaint: L ANKLE BITE Nursing Triage Note: Patient has presented to ER with cc of an insect bite on his left ankle. He noticed the bite this morning and he has not taken anything for the bite and came to ER for evaluation. Source: patient History of Present Illness Date Seen by Provider: Dec 23, 2022 Time Seen by Provider: 17:41 Initial Comments [id number] male presenting with complaints of increasing redness to his left ankle. He thought that he had been bitten by an insect or spider 2 days ago. This morning when he went to get out of bed and it was painful and he almost fell because of the pain trying to stand on his left leg. He denies faulkner ving any fever, chills, nausea, vomiting, headache, abdominal pain. He has some itching to the area on his left posterior ankle and has been scratching at it. There are some excoriation and redness but no fluctuance or drainage. He denies having fever or chills at home. Timing/Duration: getting worse (Over the last 2 days) Severity: moderate Location: extremities (Left posterior ankle) Possible Cause: insect bite Modifying Factors: worse with scratching Associated Symptoms: No blisters, No change in skin texture, No edema, No fever, No flushing, No headache, No hives, No jaundice, No malaise, No nasal congestion, No numbness, No pallor, No paresthesia, No petechiae, No sore throat, No swelling/mass/lumps, No tingling Allergies and Home Medications Allergies Coded Allergies: codeine (Verified Allergy, Unknown, 01/09/21) prednisone (Verified Allergy, Unknown, 01/09/21) Penicillins (Unverified Adverse Reaction, Unknown, 10/20/19) shellfish derived (Unverified Adverse Reaction, Unknown, 10/20/19) Uncoded Allergies: acetamenophen (Adverse Reaction, Unknown, 10/20/19) Patient Home Medication List Home Medication List Reviewed: Yes Albuterol Sulfate (Ventolin Hfa) 1 Puff Puff, 2 PUFF INH Q4H PRN for WHEEZING Prescribed by: AALIYAH JAMA on 11/09/19 0848 Cephalexin (Cephalexin) 500 Mg Tablet, 500 MG PO TID Prescribed by: CHAVEZ HANNON on 7/27/21 0606 Cyclobenzaprine HCl (Cyclobenzaprine HCl) 10 Mg Tablet, 10 MG PO TID Prescribed by: YEFRI VILLALOBOS on 03/18/22935 Dexamethasone (Decadron) 4 Mg Tablet, 4 MG PO BID Prescribed by: CHAVEZ HANONN on 01/09/21 06 Diclofenac Sodium (Diclofenac Sodium) 75 Mg Tablet.dr, 75 MG PO BID Prescribed by: HUMAIRA PITTS on 10/20/19 1214 Doxycycline Hyclate (Doxycycline Hyclate) 100 Mg Tablet, 100 MG PO BID Prescribed by: JOANN HENNING on 11/01/2117 Famotidine (Pepcid) 20 Mg Tablet, 20 MG PO BID Prescribed by: CHAVEZ HANNON on 08/15/2047 Hydrocodone/Acetaminophen (Hydrocodone-Acetamin 5-325 mg) 5 Mg-325 Mg Tablet, 1 TAB PO Q6H PRN for PAIN-MODERATE (5-7) Prescribed by: JOANN HENNING on 11/01/2118 Hydroxyzine HCl (Hydroxyzine HCl) 25 Mg Tablet, 50 MG PO Q8H Prescribed by: CHAVEZ HANNON on 01/09/21605 Mupirocin (Mupirocin) 2 % Oint...g., 22 GM TP Q8H Prescribed by: CHAVEZ HANNON on 12/21/21 0728 Naproxen (Naprosyn) 500 Mg Tablet, 500 MG PO BID Prescribed by: YEFRI VILLALOBOS on 03/18/22935 Nitroglycerin (Nitroglycerin) 0.4 Mg Tab.subl, 0.4 MG SL UD PRN for CHEST PAIN Prescribed by: MARIA GUADALUPE FLORES on 10/31/20 110 Omeprazole (Omeprazole) 40 Mg Capsule.dr, 40 MG PO Q12H Prescribed by: CHAVEZ HANNON on 08/15/2047 Ondansetron (Ondansetron Odt) 4 Mg Tab.rapdis, 4 MG PO TID Prescribed by: MARIA GUADALUPE FLORES on 12/12/20 0739 Ondansetron (Ondansetron Odt) 4 Mg Tab.rapdis, 4 MG PO Q6H PRN for NAUSEA/VOMITING Prescribed by: YEFRI VILLALOBOS on 09/11/212034 Oxycodone HCl (Oxycodone HCl) 5 Mg Tablet, 5 MG PO Q6H PRN for PAIN-MODERATE (5- 7) Prescribed by: DOMINGUEZ MELISSA on 11/01/21 1046 Oxycodone Hcl (Oxyir Tablet) 5 Mg Tab, 5 MG PO Q6H PRN for PAIN-SEVERE (8-10) Prescribed by: YEFRI VILLALOBOS on 03/18/22 0954 Sucralfate (Sucralfate) 1 Gm Tablet, 1 GM PO ACHS Prescribed by: CHAVEZ HANNON on 08/15/20 0048 Sulfamethoxazole/Trimethoprim (Bactrim Ds Tablet) 1 Each Tablet, 1 EACH PO BID Prescribed by: CHAVEZ HANNON on 12/21/21 0728 Sulfamethoxazole/Trimethoprim (Bactrim Ds Tablet) 1 Each Tablet, 1 EACH PO BID Prescribed by: YEFRI VILLALOBOS on 12/23/22 1755 Review of Systems Review of Systems Constitutional: No chills, No fever EENTM: no symptoms reported Respiratory: no symptoms reported Cardiovascular: no symptoms reported Gastrointestinal: no symptoms reported Genitourinary: no symptoms reported Musculoskeletal: see HPI Skin: see HPI, change in color Psychiatric/Neurological: Denies Numbness, Denies Paresthesia Past Wosluwy-Mnmamh-Buhqtc Hx Patient Social History Tobacco Use?: No Use of E-Cig and/or Vaping dev: No Substance use?: No Alcohol Use?: No Immunizations Up To Date First/Initial COVID19 Vaccinat: unvaccinated Second COVID19 Vaccination Brandon: unvaccinated Third COVID19 Vaccination Date: unvaccinated Seasonal Allergies Seasonal Allergies: No Past Medical History Surgery/Hospitalization HX: GERD, Esophagitis, Asthma, EGD, Appendectomy Surgeries: Yes Appendectomy Respiratory: Yes Asthma Cardiac: Yes Hypertension Neurological: Yes (Epilepsy, cleared 2 yrs ago. Took self off meds) Concussion, Seizure Disorder Genitourinary: No Gastrointestinal: Yes Gastroesophageal Reflux Musculoskeletal: No Endocrine: No HEENT: No Cancer: No Psychosocial: No Integumentary: No Blood Disorders: No Physical Exam Vital Signs Vital Signs - First Documented 12/23/22 17:46 Temp 36.5 Pulse 91 Resp 18 B/P (MAP) 123/79 (94) Pulse Ox 99 O2 Delivery Room Air Capillary Refill : General Appearance: WD/WN, no apparent distress Cardiovascular: normal peripheral pulses Skin: warm/dry Skin Problem Location: lower extremities (Left posterior ankle has an area of erythema with increased warmth and tenderness. There is no fluctuance or drainage) Skin Problem Character: erythema, tenderness, warm Progress/Results/Core Measures Results/Orders My Orders Orders - YEFRI VILLALOBOS MD Ceftriaxone Iv/Im (Rocephin Iv/Im) (12/23/22 17:51) Ketorolac Injection (Toradol Injection) (12/23/22 17:51) Lidocaine 1% Inj 20 Ml (Xylocaine 1% Inj (12/23/22 18:00) Medications Given in ED Current Medications Medications Dose Ordered Sig/Yaima Route Start Time Stop Time Status Last Admin Dose Admin Lidocaine HCl 2.1 ml ONCE ONCE INJ 12/23/22 18:00 12/23/22 18:01 DC 12/23/22 17:59 2.1 ML Vital Signs/I&O 12/23/22 17:46 Temp 36.5 Pulse 91 Resp 18 B/P (MAP) 123/79 (94) Pulse Ox 99 O2 Delivery Room Air Blood Pressure Mean: 94 Progress Progress Note : Progress Note Patient has no areas of necrosis or black coloration to the area on his left posterior ankle. There is some excoriation as well as erythema with induration and increased warmth but no drainage or fluctuance. Prescribed antibiotics for cellulitis and possible insect bite. Start with a dose of Toradol for pain and inflammation and Rocephin 1 g IM for antibiotic. Prescribed Bactrim DS 1 p.o. twice daily for his cellulitis. Encouraged to take anti-inflammatories such as ibuprofen to help with pain and inflammation. May also use ice and elevation to help with pain redness and swelling. Check back with the clinic if not improving after 2 to 3 days of antibiotics. Departure Impression Primary Impression: Cellulitis of left ankle Additional Impression: Insect bite (nonvenomous), left lower leg, initial encounter Disposition: HOME, SELF-CARE Condition: Stable Departure-Patient Inst. Decision time for Depature: 17:54 Referrals: XOCHITL LICONA APRN (PCP) Primary Care Physician [facility]/MICHAEL (Family) Primary Care Physician Patient Instructions: Cellulitis (Skin Infection), Adult ED, Insect Bites and Stings ED Add. Discharge Instructions: Take the full course of antibiotics to help treat for cellulitis of the skin. Try to keep from scratching and itching at the area. You could try taking some diphenhydramine or Benadryl to help with itching and redness. You could take ibuprofen or naproxen to try and help with pain and inflammation. You could also try applying an ice pack for 15 to 20 minutes every few hours while awake to help with pain and redness. Check back with the clinic if not having improvement after 2 to 3 days with the antibiotics. All discharge instructions reviewed with patient and/or family. Voiced understanding. Scripts Sulfamethoxazole/Trimethoprim (Bactrim Ds Tablet) 1 Each Tablet 1 EACH PO BID for cellulitis for 10 Days, #20 TAB 0 Refills Prov: YEFRI VILLALOBOS MD 12/23/22 Work/School Note: Work Release Form Date Seen in the Emergency Department: Dec 23, 2022 Return to Work: Dec 26, 2022 Restrictions: Return-No Fever (24hrs) YEFRI VILLALOBOS MD Dec 23, 2022 17:56
[2022-12-23] MEDS ORDERED: LIDOCAINE 1% INJ 20 ML VIAL INJ ONE (18:00)
== END 2022-12-23 18:03 | disposition home or self-care (01) ==
LOC: EDUNIT# 17:37 → ER FS 17:38
DX: S90.562A Insect bite (nonvenomous), left ankle, initial encounter (principal); L03.116 Cellulitis of left lower limb; Z88.0 Allergy status to penicillin; Z88.2 Allergy status to sulfonamides; Z28.310 Unvaccinated for COVID-19; W57.XXXA Bitten or stung by nonvenomous insect and other nonvenomous arthropods, initial encounter
CPT/HCPCS: 99284